=== PATIENT | male | born 1945 | race Caucasian/White ===

== ENCOUNTER 2017-11-20 05:39 | Inpatient (IN) | payer BC, OTHER ==
[2017-11-12 15:14] VITALS: Ht 172.7 cm; Wt 106.2 kg
--- NOTE | 2017-11-12 16:09 | PAT Medication Instructions ---
Service Date Nov 12, 2017. Current Home Medication List Aspirin (Aspirin Ec), 81 MG PO QAM Atorvastatin (Lipitor), 40 MG PO QPM Clonazepam (Klonopin), 0.25 MG PO QAM Coenzyme Q10 (Ubidecarenone) (Coq10), 100 MG PO QPM Lisinopril/Hctz (Zestoretic 20MG/12.5MG), 1.5 TAB PO QAM Metformin Hcl (Glucophage), 1,000 MG PO BID Venlafaxine Hcl (Effexor Extended Rel), 150 MG PO HS Medication Instructions For Your Scheduled Surgery - Hold the following medications starting today (11/12): Coenzyme Q10 (Ubidecarenone) (Coq10), 100 MG PO QPM - Hold the following medications the morning of surgery: Lisinopril/Hctz (Zestoretic 20MG/12.5MG), 1.5 TAB PO QAM Metformin Hcl (Glucophage), 1,000 MG PO BID - Take the following medications the morning of surgery with a sip of water: Aspirin (Aspirin Ec), 81 MG PO QAM Clonazepam (Klonopin), 0.25 MG PO QAM - Take the following medications as scheduled the night before surgery: Atorvastatin (Lipitor), 40 MG PO QPM Metformin Hcl (Glucophage), 1,000 MG PO BID Venlafaxine Hcl (Effexor Extended Rel), 150 MG PO HS If you have any questions please call us at [phone] or [phone] or [phone]
[2017-11-12 16:12] LABS: BASO % 0.4 %; BASO ABS # 0.03 K/uL (0-0.2); EOS % 2.3 %; EOS ABS # 0.19 K/uL (0-0.5); HEMOGLOBIN 12.9 g/dL (14.0-18.0); IG# 0.02 K/uL (0.00-0.02); LYMPH % 26.4 %; LYMPH ABS # 2.19 K/uL (1.2-3.4); MEAN CELL VOLUME 84.3 fL (80-100); MEAN CORPUSCULAR HEMOGLOBIN 28.6 pg (25-34); MEAN CORPUSCULAR HGB CONC 33.9 g/dl (32-36); MEAN PLATELET VOLUME 10.1 fL (7.4-10.4); MONO % 6.1 %; MONO ABS # 0.51 K/uL (0.11-0.59); NEUT % 64.6 %; NEUT ABS # 5.36 K/uL (1.4-6.5); PLATELET COUNT 266 K/uL (130-400); RED CELL DISTRIBUTION WIDTH CV 13.3 % (11.5-14.5)
[2017-11-12 16:33] LABS: CALCIUM 9.6 mg/dl (8.5-10.1); CREATININE 1.08 mg/dl (0.60-1.40)
--- NOTE | 2017-11-12 16:38 | DIAGNOSTIC IMAGING REPORT ---
CHEST 2 VIEWS ROUTINE CLINICAL HISTORY: PAT preoperative evaluation COMPARISON STUDY: 03/14/2011 FINDINGS: The bones soft tissues and hemidiaphragms are normal. The cardiomediastinal silhouette is normal. The lungs are clear. The pulmonary vasculature is normal. IMPRESSION: Negative chest. The above report was generated using voice recognition software. It may contain grammatical, syntax or spelling errors. Electronically signed by: Thang Barriga M.D. 11/12/2017 4:36 PM Dictated Date/Time: 11/12/2017 4:36 PM
[2017-11-20] VITALS (8 sets, daily range): BP systolic 109–185; BP diastolic 41–78; PULSE 94–109; TEMP 36.5–36.8; O2SAT 93–96
[~2017-11-20] VITALS: Ht 172.7 cm; Wt 106.2 kg
[~2017-11-20 05:39] MED LIST: ASPI81TA28 PO; ATOR-24 PO; CLON0.5T3 PO; COEN100C7 PO; GLC/500 PO; LISI-787 PO; VENL150C56 PO
[2017-11-20] MEDS ORDERED: CeleBREX 200 MG CAP PO SCH (06:00)
[2017-11-20] MEDS ORDERED: ACETAMINOPHEN 500 MG TAB PO SCH (06:00)
[2017-11-20] MEDS ORDERED: GABAPENTIN 300 MG CAP PO SCH (06:00)
[2017-11-20] MEDS ORDERED: LACTATED RINGER'S 1000ML 1,000 ML IV SCH (06:00)
[2017-11-20] MEDS ORDERED: CLINDAMYCIN 600 MG/54 ML D5W 54 ML IV SCH (06:00)
[2017-11-20] MEDS ORDERED: MIDAZOLAM HCL 1 MG/ML 2ML VIAL ONE (06:35)
[2017-11-20] MEDS ORDERED: FENTANYL CITRATE INJ 50 MCG/1 ML 2 ML VIAL ONE ×4 (06:35→10:02)
[2017-11-20] MEDS ORDERED: BACITRACIN 50000 UNIT VIAL ONE (06:58)
[2017-11-20] MEDS ORDERED: BUPIVACAINE/EPINEPHRINE 0.5% MPF 1:200,000 30 ML VIAL ONE (06:58)
--- NOTE | 2017-11-20 07:31 | History & Physical Bridge Note ---
H&P Re-Evaluation Bridge Note: I have examined the patient, reviewed the History & Physical and in the interval since the performance of the History & Physical I have noted the following changes of clinical significance: No changes noted
--- NOTE | 2017-11-20 07:32 | History and Physical ---
History & Physical Date November 20, 2017. Chief Complaint Back and leg pain History of Present Illness The patient is a 72 year old male with complaints of back and leg pain Past Medical/Surgical History Medical Problems: (1) Mental retardation Additional History Hepatic Disease: No Endocrine Disorder: No Kidney Disease: No Hypertension: Yes Heart Disease: No Bleeding Tendencies: No Infectious Diseases: No Other: Diabetes Allergies Coded Allergies: Penicillins (Verified Allergy, Intermediate, MOUTH SORES AND MONTH ULCERS , 11/20/17) Oxycodone (Verified Adverse Reaction, Mild, NAUSEA, 11/20/17) Home Medications Scheduled Atorvastatin (Lipitor), 40 MG PO QPM Clonazepam (Klonopin), 0.25 MG PO QAM Coenzyme Q10 (Ubidecarenone) (Coq10), 100 MG PO QPM Lisinopril/Hctz (Zestoretic 20MG/12.5MG), 1.5 TAB PO QAM Metformin Hcl (Glucophage), 1,000 MG PO BID Venlafaxine Hcl (Effexor Extended Rel), 150 MG PO HS Physical Examination Skin: warm/dry, no rash Eyes: normal inspection, EOMI, sclerae normal ENT: normal ENT inspection, pharynx normal Head: normocephalic, atraumatic Neck: supple, no adenopathy, trachea midline Respiratory/Chest: lungs clear, normal breath sounds, no respiratory distress Cardiovascular: regular rate, rhythm, no edema, no murmur Abdomen / GI: normal bowel sounds, non tender Back: normal inspection Extremities: normal inspection, normal range of motion Neurologic/Psych: no motor/sensory deficits, alert, normal reflexes, oriented x 3 Diagnosis Lumbar spinal stenosis with neurogenic claudication Plan of Treatment Hardware removal L4-5 L2-3 L3-4 decompression L2-S1 fusion
[2017-11-20] MEDS ORDERED: HYDROmorphone INJ 2 MG/ML SYR/VIAL ONE ×3 (08:04→10:37)
[2017-11-20] MEDS ORDERED: FLOSEAL HEMOSTATIC MATRIX 10ML TOP ONE (10:17)
[2017-11-20] MEDS ORDERED: PROPOFOL IV EMULSION 10 MG/ML 20 ML VIAL ONE (10:23)
[2017-11-20] MEDS ORDERED: EpHEDrine SULFATE INJ 50 MG/ML AMP ONE (10:23)
[2017-11-20] MEDS ORDERED: DEXAMETHASONE SOD INJ 4 MG/ML VIAL ONE (10:23)
[2017-11-20] MEDS ORDERED: LIDOCAINE HCL 2% 2 ML VIAL (20MG/ML) ONE (10:23)
[2017-11-20] MEDS ORDERED: PHENYLEPHRINE HCL INJ 10 MG/ML VIAL ONE (10:23)
[2017-11-20] MEDS ORDERED: PHENYLEPHRINE 100MCG/ML 5ML SYR ONE (10:23)
[2017-11-20] MEDS ORDERED: ROCURONIUM BROMIDE 10 MG/ML 5 ML VIAL ONE (10:23)
[2017-11-20] MEDS ORDERED: EpHEDrine SULFATE 50MG/5ML SYR ONE (10:23)
[2017-11-20 10:28] LABS: HEMATOCRIT 30.3 % (42-52); HEMOGLOBIN 10.3 g/dL (14.0-18.0)
[2017-11-20] MEDS ORDERED: SODIUM CHLORIDE 0.9% 1000ML 1,000 ML IV SCH (10:28)
--- NOTE | 2017-11-20 10:28 | [facility] Operative Report ---
Operative Report Operative Date November 20, 2017. Pre-Operative Diagnosis Lumbar spinal stenosis with neurogenic claudication Post-Operative Diagnosis Lumbar spinal stenosis with neurogenic claudication Procedure(s) Performed 1. Removal of posterior instrumentation L4-5. #2 exploration of fusion L4-5. #3 lumbar decompression medial facetectomies foraminotomies L2-3 L3-4. #4 posterior spinal fusion L2-3 L3-4 L5-S1. #5 placement of posterior segmental instrumentation L2-S1. #6 placement of locally harvested morselized autograft in the posterior lateral gutters. #7 placement of infuse collagen sponge combined with master graft in the posterior lateral gutters L2-S1. Surgeon Dr. Donald Isaac Voice Coach Surgeon(s) Alexandra Blankenship PA-C Estimated Blood Loss 775ml Findings Severe spinal stenosis Specimens A: Explanted hardware lumbar spine L4-L5 Anesthesia Type General Description of Procedure Patient was met with preoperatively case discussed all questions addressed. After informed consent obtained patient was taken to the operative suite underwent intubation and placed in a prone position on the Edy table on top of the Billy frame. All bony prominences were well-padded eyes inspected to ensure no external pressure placed upon the. This point the lumbar spine was prepped and draped in normal sterile fashion. Sharp dissection with the assistance of Bovie cautery was performed down to and exposing the lamina and transverse processes of L2-L3 and instrumentation at L4-5 and the sacral ala bilaterally. Then proceeded remove the hardware at L4-5 bilaterally explain the fusion mass noting it to be intact. I then performed a complete laminectomy of L3 and L2 addressing severe lateral recess and foraminal disease. After this was addressed pedicle screws were placed in L2-L3-L4 L5-S1 levels bilaterally with the assistance of fluoroscopy. Probe size sofie was locked in position. The transverse processes of L2 L3-L4-L5 and the sacral ala were then burred to subcortical bleeding bone. Infuse collagen sponge mesh graft and local autograft placed in the posterior lateral gutters. A 15 round MERI drain inserted. Incision was then closed with 1 Vicryl fascia 2-0 Vicryl subtends a 4 Monocryl for fashion closure Steri-Strips sterile dressings placed. Patient will continue to PACU stable condition. Please note Alexandra Vitale was present throughout the entire procedure involved in patient positioning complex portions of the surgery and fashion closure. I attest to the content of the Intraoperative Record and any orders documented therein. Any exceptions are noted below.
[2017-11-20] MEDS ORDERED: DO NOT ADMINISTER PNEUMOCOCCAL VACCINE PRN (10:30)
[2017-11-20] MEDS ORDERED: DC PCA PRN (10:30)
[2017-11-20] MEDS ORDERED: NALOXONE HCL 0.4 MG/1 ML VIAL/CARP IV PRN ×3 (10:30→11:30)
[2017-11-20] MEDS ORDERED: hydrOXYzine HCL 25 MG TAB PO PRN (10:30)
[2017-11-20] MEDS ORDERED: PROMETHAZINE HCL INJ 12.5 MG in SODIUM CHLORIDE 0.9% 50ML 50 ML IV PRN ×2 (10:30→11:30)
[2017-11-20] MEDS ORDERED: BISACODYL 10 MG SUPP PR PRN (10:30)
[2017-11-20] MEDS ORDERED: FAMOTIDINE 20 MG TAB PO PRN (10:30)
[2017-11-20] MEDS ORDERED: ACETAMINOPHEN IV 100 ML IV PRN (10:30)
[2017-11-20] MEDS ORDERED: LORAZEPAM 0.5 MG TAB PO PRN (10:30)
[2017-11-20] MEDS ORDERED: ALUMINUM/MAGNESIUM SUSP 30 ML UDC PO PRN (10:30)
[2017-11-20] MEDS ORDERED: LORAZEPAM INJ 0.5 MG in SYRINGE 0 ML IV PRN (10:30)
[2017-11-20] MEDS ORDERED: SOD PHOSPHATE/SOD BIPHOSPHATE ENEMA 132 ML BTL PR PRN (10:30)
[2017-11-20] MEDS ORDERED: METOCLOPRAMIDE HCL INJ 5 MG/ML 2 ML VIAL IV PRN (10:30)
[2017-11-20] MEDS ORDERED: ACETAMINOPHEN 500 MG TAB PO PRN (10:30)
[2017-11-20] MEDS ORDERED: DO NOT ADMINISTER FLU VACCINE PRN (10:30)
[2017-11-20] MEDS ORDERED: ONDANSETRON INJ 2 MG/ML 2 ML VIAL IV PRN ×2 (10:30→11:30)
[2017-11-20] MEDS ORDERED: MAGNESIUM HYDROXIDE SUSP 30 ML UDC PO PRN (10:30)
--- NOTE | 2017-11-20 10:31 | DIAGNOSTIC IMAGING REPORT ---
INTRAOPERATIVE RADIOGRAPHS CLINICAL HISTORY: L2-S1 spinal fusion. Fluoroscopy time: 22 seconds. FINDINGS: 2 spot fluoroscopic views of the lumbar spine are presented. There has been discectomy at L4-L5. There are changes from laminectomy and posterior fusion L2-S1. Interpedicular screws are present at all levels. The orthopedic hardware appears intact. IMPRESSION: Intraoperative images from L2 -S1 spinal fusion as above. Electronically signed by: Hayden Bess M.D. 11/20/2017 10:30 AM Dictated Date/Time: 11/20/2017 10:29 AM
[2017-11-20] MEDS ORDERED: ONDANSETRON INJ 2 MG/ML 2 ML VIAL ONE (10:38)
[2017-11-20] MEDS ORDERED: NEOSTIGMINE METHYLSULFATE 1 MG/ML 10ML VIAL ONE (10:38)
[2017-11-20] MEDS ORDERED: GLYCOPYRROLATE INJ 0.2 MG/ML VIAL ONE (10:38)
[2017-11-20] MEDS ORDERED: KETOROLAC TROMETHAMINE 30 MG/ML VIAL ONE (10:38)
[2017-11-20] MEDS ORDERED: HYDROmorphone HCL 0.5MG/ML 50 ML CASSETTE ONE (10:55)
[2017-11-20] MEDS ORDERED: ATROPINE SULFATE 0.1 MG/ML 5ML SYR IV PRN (11:30)
[2017-11-20] MEDS ORDERED: HYDROmorphone INJ 1 MG/ML SYR IV PRN (11:30)
[2017-11-20] MEDS ORDERED: EpHEDrine SULFATE INJ 50 MG/ML AMP IV PRN (11:30)
[2017-11-20] MEDS ORDERED: LABETALOL HCL IV 5 MG/ML 20ML IV PRN (11:30)
[2017-11-20] MEDS ORDERED: FLUMAZENIL 0.1 MG/1 ML 10 ML VIAL IV PRN (11:30)
--- NOTE | 2017-11-20 11:47 | Anesthesiology Progress Note ---
Anesthesia Post Op Note Date & Time November 20, 2017 at 11:46 Vital Signs Pain Intensity: 2 Vital Signs Past 12 Hours Date Time Temp Pulse Resp B/P (MAP) Pulse Ox O2 Delivery O2 Flow Rate FiO2 11/20/17 11:38 36.5 102 11/20/17 11:36 138/67 11/20/17 11:35 105 17 11/20/17 11:35 106 17 96 11/20/17 11:31 164/60 11/20/17 11:30 108 23 97 11/20/17 11:30 107 23 11/20/17 11:26 144/59 11/20/17 11:25 104 16 96 11/20/17 11:25 105 16 11/20/17 11:21 144/90 11/20/17 11:20 108 20 98 11/20/17 11:20 108 11/20/17 11:16 146/68 11/20/17 11:15 13 11/20/17 11:15 102 13 98 11/20/17 11:11 142/71 11/20/17 11:10 103 18 11/20/17 11:10 103 18 95 11/20/17 11:06 145/71 11/20/17 11:05 105 10 99 11/20/17 11:05 105 10 11/20/17 11:01 150/67 11/20/17 11:00 105 16 98 11/20/17 11:00 105 16 11/20/17 10:58 152/75 11/20/17 10:50 36.8 98 16 140/57 96 Oxymask 7 11/20/17 06:02 36.5 94 20 185/78 96 Room Air Notes Mental Status: alert / awake / arousable, participated in evaluation Pt Amnestic to Procedure: Yes Nausea / Vomiting: adequately controlled Pain: adequately controlled Airway Patency, RR, SpO2: stable & adequate BP & HR: stable & adequate Hydration State: stable & adequate Anesthetic Complications: no major complications apparent
[2017-11-20] MEDS ORDERED: GLUCOSE 40% GEL 15 GM TUBE PO PRN ×2 (12:30→13:00)
[2017-11-20] MEDS ORDERED: GLUCOSE 10 TABS/TUBE PO PRN ×2 (12:30→13:00)
[2017-11-20] MEDS ORDERED: DEXTROSE 50% 50 ML SYR IV PRN ×2 (12:30→13:00)
[2017-11-20] MEDS ORDERED: CARBOHYDRATES FOR HYPOGLYCEMIA PO PRN ×2 (12:30→13:00)
[2017-11-20] MEDS ORDERED: GLUCAGON FOR INJ 1 MG VIAL SQ PRN (12:30)
--- NOTE | 2017-11-20 12:31 | Medical Consult ---
Consultation Date of Consultation: November 20, 2017. Attending Physician: Donald Isaac D.O. Reason for Consultation: post op medical management History of Present Illness This is a 72yo M with a PMH of lumbar stenosis, DM II, HTN, HLD, SEAN and depression who is POD #0 s/p L4-L5 hardware removal, decompression and fusion of L2-S1 by Dr. Isaac. Patient is doing well post-operatively. States that back pain is a 3/10. Denies any fever, chills, lightheadedness, headache, visual changes, sore throat, CP, SOB, abdominal pain, nausea, vomiting, dysuria or LE swelling. PCP is Dr. Sy with [facility]. Has DM II. Most recent hgb a1c was 7.3 in Jul 2017. Has undergone two other spinal surgeries by Dr. Isaac. Did have a R basilic vein DVT following 2010 cervical disc corpectomy. Denies any other history of DVT/PE. Does have history of a GI bleed 2/2 peptic ulcer from NSAID use. No longer uses NSAIDs at home. Past Medical/Surgical History Medical Problems: (1) Depression Status: Chronic (2) Diabetes mellitus, type II Status: Chronic (3) SEAN (generalized anxiety disorder) Status: Chronic (4) H/O deep venous thrombosis Permanent Comment: post operative in 2010 Status: Chronic (5) H/O peptic ulcer Status: Chronic (6) Heart murmur, systolic Status: Chronic (7) HLD (hyperlipidemia) Status: Chronic (8) HTN (hypertension) Status: Chronic (9) Lumbar stenosis with neurogenic claudication Status: Chronic Surgical Problems: (1) H/O cervical spine surgery Permanent Comment: 2010: Cervical corpectomy C6 by Dr. Isaac Status: Chronic (2) H/O Spinal surgery Permanent Comment: 2007: Lumbar decompression and fusion L4-L5 by Dr. Isaac. 2018: hardware removal L4-L5, decompression and fusion L2-S1 by Dr. Isaac Status: Chronic Family History Hypertension Social History Smoking Status: Former Smoker Alcohol Use: occasionally (1x/month ) Drug Use: none Marital Status: Housing Status: lives with significant other Allergies Coded Allergies: Penicillins (Verified Allergy, Intermediate, MOUTH SORES AND MONTH ULCERS , 11/20/17) Chlorhexidine (Unverified Allergy, Mild, RASH, 11/20/17) From chlorhexidine wipes prior to surgery Oxycodone (Verified Adverse Reaction, Mild, NAUSEA, 11/20/17) Home Medications Reported Home Medications Medications Dose Route/Sig Max Daily Dose Days Date Category Effexor Extended Rel (Venlafaxine Hcl) 150 Mg Cap 150 Mg PO HS 11/12/17 Reported Glucophage (Metformin Hcl) 500 Mg Tab 1,000 Mg PO BID 11/12/17 Reported Zestoretic 20MG/12.5MG (HCTZ/Lisinopril) Tab 1.5 Tab PO QAM 11/12/17 Reported Coq10 (Coenzyme Q10 (Ubidecarenone)) 100 Mg Cap 100 Mg PO QPM 11/12/17 Reported Lipitor (Atorvastatin Calcium) 40 Mg Tab 40 Mg PO QPM 11/12/17 Reported Klonopin (Clonazepam) 0.5 Mg Tab 0.25 Mg PO QAM 07/01/08 Reported Current Inpatient Medications Current Inpatient Medications Medications (Trade) Dose Ordered Sig/Blu Route Start Time Stop Time Status Last Admin Dose Admin Lactated Ringer's 1,000 ml @ 15 mls/hr Q24H IV 11/20/17 06:00 11/21/17 05:59 11/20/17 06:19 15 MLS/HR Clindamycin Phosphate 54 ml @ 100 mls/hr PREOP IV 11/20/17 06:00 11/20/17 18:00 11/20/17 07:39 100 MLS/HR Acetaminophen (Tylenol Tab) 1,000 mg PREOP PO 11/20/17 06:00 11/20/17 18:00 11/20/17 06:20 1,000 MG Celecoxib (CeleBREX CAP) 200 mg PREOP PO 11/20/17 06:00 11/20/17 18:00 11/20/17 06:19 200 MG Gabapentin (Neurontin Cap) 300 mg PREOP PO 11/20/17 06:00 11/20/17 18:00 11/20/17 06:19 300 MG Clindamycin Phosphate 600 mg/ Dextrose 54 ml @ 100 mls/hr Q8H IV 11/20/17 10:30 11/20/17 19:03 UNV Promethazine HCl 12.5 mg/Sodium Chloride 50.5 ml @ 202 mls/hr Q6H PRN IV 11/20/17 10:30 12/20/17 10:29 UNV Ondansetron HCl (Zofran Inj) 4 mg Q6H PRN IV 11/20/17 10:30 12/20/17 10:29 UNV Metoclopramide HCl (Reglan Inj) 10 mg Q6H PRN IV 11/20/17 10:30 12/20/17 10:29 UNV Lorazepam (Ativan Tab) 0.5 mg Q8H PRN PO 11/20/17 10:30 12/20/17 10:29 UNV Lorazepam 0.5 mg/ Syringe 0.25 ml @ 1 mls/min Q8H PRN IV 11/20/17 10:30 12/20/17 10:29 UNV Pneumococcal Polysaccharide Vaccine 1 ea PRN PRN N/A 11/20/17 10:30 12/20/17 10:29 UNV Influenza Virus Vacc Triv Types A&B 1 ea PRN PRN N/A 11/20/17 10:30 12/20/17 10:29 UNV Polyethylene (Miralax Powder Packet) 17 gm Q6 PO 11/22/17 06:00 12/22/17 05:59 UNV Bisacodyl (Dulcolax Supp) 10 mg DAILY PRN IL 11/20/17 10:30 12/20/17 10:29 UNV Magnesium Hydroxide (Milk Of Magnesia Susp) 30 ml DAILY PRN PO 11/20/17 10:30 12/20/17 10:29 UNV Hydromorphone HCl (Dilaudid Inj) 0.5-1mg prn moder... Q3H PRN IV 11/21/17 06:00 12/05/17 05:59 UNV Acetaminophen/ Hydrocodone Bitart (Vermillion 5/325 Tab) 1-2 tabs prn moder... Q4H PRN PO 11/21/17 06:00 12/05/17 05:59 UNV Sodium Chloride 1,000 ml @ 150 mls/hr Q6H40M IV 11/20/17 10:28 12/20/17 10:27 UNV Acetaminophen (Tylenol Tab) 1,000 mg Q8H PRN PO 11/20/17 10:30 12/20/17 10:29 UNV Acetaminophen 100 ml @ 400 mls/hr Q8H PRN IV 11/20/17 10:30 12/20/17 10:29 UNV Naloxone HCl (Narcan Inj) 0.1 mg Q5M PRN IV 11/20/17 10:30 12/20/17 10:29 UNV Senna/Docusate Sodium (Senokot S Tab) 2 tab HS PO 11/20/17 21:00 12/20/17 20:59 UNV Sodium Biphosphate/ Sodium Phosphate (Fleet Enema) 132 ml ONE PRN IL 11/20/17 10:30 12/20/17 10:29 UNV Hydroxyzine HCl (Vistaril Tab) 25 mg Q8H PRN PO 11/20/17 10:30 12/20/17 10:29 UNV Al Hydroxide/Mg Hydroxide (Maalox Susp) 30 ml Q6H PRN PO 11/20/17 10:30 12/20/17 10:29 UNV Famotidine (Pepcid Tab) 20 mg Q12 PRN PO 11/20/17 10:30 12/20/17 10:29 UNV Diphenhydramine HCl (Benadryl Cap) 25 mg Q6H PRN PO 11/20/17 10:30 12/20/17 10:29 UNV Miscellaneous Information (Discontinue TELEPHONE ORDER CLERK) 1 ea DIRECTED PRN N/A 11/20/17 10:30 11/21/17 10:29 UNV Naloxone HCl (Narcan Inj) 0.1 mg Q5M PRN IV 11/20/17 10:30 12/20/17 10:29 UNV Hydromorphone HCl (Dilaudid Injection Wax Molder) 25 mg PRN PRN IV 11/20/17 10:30 12/04/17 10:29 UNV Sodium Chloride 1,000 ml @ 15 mls/hr Q24H IV 11/20/17 10:28 12/20/17 10:27 UNV Atorvastatin Calcium (Lipitor Tab) 40 mg QPM PO 11/20/17 21:00 12/20/17 20:59 UNV Clonazepam (Klonopin Tab) 0.25 mg QAM PO 11/21/17 09:00 12/21/17 08:59 UNV HCTZ/Lisinopril (Prinzide 20-12.5MG Tab) 1.5 tab QAM PO 11/21/17 09:00 12/21/17 08:59 UNV Venlafaxine HCl (effeXOR EXTENDED REL CAP) 150 mg HS PO 11/20/17 21:00 12/20/17 20:59 UNV Hydromorphone HCl (Dilaudid Inj) 0.25 mg Q5M PRN IV 11/20/17 11:30 11/21/17 11:29 UNV Naloxone HCl (Narcan Inj) 0.2 mg Q2M PRN IV 11/20/17 11:30 11/21/17 11:29 UNV Flumazenil (Romazicon Inj) 0.2 mg Q2M PRN IV 11/20/17 11:30 11/21/17 11:29 UNV Ondansetron HCl (Zofran Inj) 4 mg ONE PRN IV 11/20/17 11:30 12/20/17 11:29 UNV Promethazine HCl 12.5 mg/Sodium Chloride 50.5 ml @ 202 mls/hr ONE PRN IV 11/20/17 11:30 UNV Labetalol HCl (Normodyne IV) 5 mg Q5M PRN IV 11/20/17 11:30 11/21/17 11:29 UNV Ephedrine Sulfate (EpHEDrine SULFATE INJ) 5 mg Q5M PRN IV 11/20/17 11:30 11/21/17 11:29 UNV Atropine Sulfate (Atropine Sulfate 0.1mg/ml Inj) 0.5 mg Q1M PRN IV 11/20/17 11:30 11/21/17 11:29 UNV Insulin Aspart (novoLOG ASPART) SLIDING SCALE If C... ACHS SC 11/20/17 16:00 12/20/17 15:59 UNV Glucose (Glucose 40% Gel) 15-30 GRAMS 15 GRAMS... UD PRN PO 11/20/17 12:30 12/20/17 12:29 UNV Glucose (Glucose Chew Tab) 4-8 Tablets 4 Tabl... UD PRN PO 11/20/17 12:30 12/20/17 12:29 UNV Dextrose (Dextrose 50% 50ML Syringe) 25-50ML 25ML FOR ... UD PRN IV 11/20/17 12:30 12/20/17 12:29 UNV Glucagon (Glucagon Inj) 1 mg UD PRN SQ 11/20/17 12:30 12/20/17 12:29 UNV Carbohydrates (Carbohydrates For Hypoglycemia) 15-30 GRAMS 15 grams if BSG 54-69... UD PRN PO 11/20/17 12:30 12/20/17 12:29 UNV Review of Systems Ten systems reviewed and negative except as noted in the HPI. Physical Exam Date Time Temp Pulse Resp B/P (MAP) Pulse Ox O2 Delivery O2 Flow Rate FiO2 11/20/17 12:18 93 Nasal Cannula 2.0 11/20/17 12:18 106 18 126/51 (76) 95 Nasal Cannula 2.0 11/20/17 11:50 36.5 105 16 121/41 (67) 93 Nasal Cannula 2.0 11/20/17 11:50 93 Nasal Cannula 2.0 11/20/17 11:50 93 Nasal Cannula 2.0 11/20/17 11:38 36.5 102 11/20/17 11:36 138/67 11/20/17 11:35 105 17 11/20/17 11:35 106 17 96 11/20/17 11:31 164/60 11/20/17 11:30 108 23 97 11/20/17 11:30 107 23 11/20/17 11:26 144/59 11/20/17 11:25 104 16 96 11/20/17 11:25 105 16 11/20/17 11:21 144/90 11/20/17 11:20 108 20 98 11/20/17 11:20 108 11/20/17 11:16 146/68 11/20/17 11:15 13 11/20/17 11:15 102 13 98 11/20/17 11:11 142/71 11/20/17 11:10 103 18 11/20/17 11:10 103 18 95 11/20/17 11:06 145/71 11/20/17 11:05 105 10 99 11/20/17 11:05 105 10 11/20/17 11:01 150/67 11/20/17 11:00 105 16 98 11/20/17 11:00 105 16 11/20/17 10:58 152/75 11/20/17 10:50 36.8 98 16 140/57 96 Oxymask 7 11/20/17 06:02 36.5 94 20 185/78 96 Room Air General Appearance: WD/WN, no apparent distress, + pertinent finding (resting comfortably ) Head: normocephalic, atraumatic Eyes: normal inspection, PERRL, sclerae normal ENT: normal ENT inspection, hearing grossly normal, pharynx normal (moist mucous membranes ) Neck: supple, no adenopathy, no carotid bruits Respiratory/Chest: chest non-tender, lungs clear, normal breath sounds, no respiratory distress, no accessory muscle use Cardiovascular: regular rate, rhythm, normal peripheral pulses, + systolic murmur Abdomen/GI: non tender, soft, no organomegaly Genitourinary - Male: + pertinent finding ([place]) Back: normal inspection, + pertinent finding (Lumbosacral surgical dressing in place. Clean, dry, intact. Drain visualized. ) Extremities/Musculoskelatal: normal inspection, no calf tenderness, no pedal edema, + swelling (SCDs) Neurologic/Psych: no motor/sensory deficits, alert, normal mood/affect, oriented x 3 Skin: normal color, warm/dry Laboratory Results Last 24 Hours Test 11/20/17 05:54 11/20/17 10:17 11/20/17 10:52 11/20/17 11:58 Bedside Glucose 168 mg/dl 260 mg/dl 273 mg/dl Hemoglobin 10.3 g/dL Hematocrit 30.3 % Assessment & Plan This is a 72yo M with a PMH of lumbar stenosis, DM II, HTN, HLD, SEAN and depression who is POD #0 s/p L4-L5 hardware removal, decompression and fusion of L2-S1 by Dr. Isaac. Lumbar stenosis s/p decompression fusion: -L4-L5 hardware removal, decompression and fusion of L2-S1 by Dr. Isaac -Doing well post-operatively -Per ortho for pain control, wound care, anticoagulation and activities -Monitor H&H, continue incentive spirometry, PT/OT when appropriate DM II: -A1c of 7.3 in Jul 2017 -Repeat a1c -Hold home metformin -Received 12mg Decadron intraoperatively -BSG is 273 post-operatively -Giving lantus dose x 1 now -Basal/bolus insulin per protocol while in-patient -BSG check AC HS HTN: -Lisinopril/hctz held pre-operatively -Normotensive -Resume scheduled dose tonight -Add PRN agent if indicated Depression: -Cont SSRI Anxiety: -Cont Klonopin HLD: -Cont statin -Hold Co Q 10 PCP: Kerrie Dispo: Per ortho Patient seen in collaboration with Dr. Werner. Please see addendum. Thank you for this consultation. We will follow the patient with you during their hospital stay. You can reach a [facility] via pager @ . Attending Addendum Pt was seen and examined. Agreed with Laura PEREA exam, assessment and plan. 72- year-old male PMH hx DM, HTN, DLP, status post L2-S1 decompression and fusion done today by Dr. Isaac. No post op complications. Denies any chest pain, palpitation, dizziness and sob. Continue monitor H/H and incentive spirometry. Pain management as per ortho.PT/OT and fall precaution. We will continue monitor his blood sugar. MD Debbi
[2017-11-20] MEDS ORDERED: INSULIN GLARGINE SOLOSTAR 100 UNITS/ML 3 ML PEN SC ONE (12:45)
[2017-11-20] MEDS ORDERED: GLUCAGON FOR INJ 1 MG VIAL IM PRN (13:00)
[2017-11-20] MEDS: INSULIN ASPART 100 UNITS/ML 3 ML PEN SC SCH ×3 (13:56→21:05)
[2017-11-20] MEDS ORDERED: HYDR-5688 PO (14:47)
--- NOTE | 2017-11-20 14:48 | Discharge Instructions ---
Discharge Instructions Date of Service November 20, 2017. Admission Reason for Admission: Lumbar Spinal Stenosis Discharge Discharge Diagnosis / Problem: lumbar stenosis Discharge Goals Goal(s): Improve function Activity Recommendations Activity Limitations: per Instructions/Follow-up section . Instructions / Follow-Up Instructions / Follow-Up ACTIVITY RECOMMENDATIONS: SELF CARE INSTRUCTIONS AFTER THORACIC/LUMBAR FUSIONS 1. You may walk to your tolerance. It is good exercise for your legs and back. Expect some back and intermittent leg aches and pains. 2. You may perform "counter-top" level activities (make a sandwich, gerri with a project, etc.). 3. No bending or lifting of more than 10 pounds or back twisting of any nature (roll like a log when turning in bed). 4. You may ride in a car for 20-30 minutes at a time. No driving until after your first visit with your doctor. 5. Frequent changes of position and restricting sitting to 30 minutes at a time will help limit the amount of back spasms and stiffness you may experience. 6. You may discontinue the use of ambulatory aids (cane, crutches, etc.) once your strength and confidence allow. 7. You may windscreen fitter the shower and let water strike your incision when you arrive home at least once daily. Do not take a tub bath, sit in a hot tub or go into a swimming pool until after your first recheck in the office. SPECIAL CARE INSTRUCTIONS: VERY IMPORTANT TO READ AND REVIEW A. Your surgical incision has been closed with a cosmetic suture under the skin that will dissolve in about 6 weeks. In 14 days, you can use a pair of clean scissors and cut the suture that is left outside of the skin at the ends of your incision. 1. The small skin tapes can be removed 7 days after surgery if they have not fallen off by that point. 2. You may keep the wound open to air as much as possible to promote healing after post-op day number 5 unless told otherwise by your doctor. 3. If you think the wound looks like it is becoming infected (redness or worsening drainage) and/or you are experiencing fever, chill or worsening back pain and muscle spasms, contact the office so that we may evaluate you as soon as possible. B. Complications are uncommon, but please contact us if you have any signs or symptoms of: 1. wound infection (fever higher than 102.5 degrees F, redness, separation of wound, drainage, or increasing pain from the incision) 2. blood clots in legs (pain, swelling, redness and warmth in legs) 3. urinary tract infection (fever higher than 102.5 degrees F, burning upon urination or increased frequency of urination) 4. nerve problems (inability to walk on your toes or heels, numbness, loss of bowel or bladder control) 5. any other symptoms that concern you C. Please call the office at if you have any concerns or questions about your operation or recovery. D. No smoking! Smoking drastically decreases the chance of a solid fusion. E. Do not take any anti-inflammatory medications (Indocin, Advil, Motrin, Aspirin, Naprosyn, etc.) as these may inhibit the chance of a solid fusion. Tylenol is okay to take for pain. MANAGING PAIN AFTER SPINAL SURGERY 1. Narcotic medication is intended for short-term use and will be provided for surgical pain. Surgical pain usually lasts for a period of 4-6 weeks. Narcotic medication includes Percocet, Vicodin, Darvocet, Tylenol #3 or Lortab. 2. Longer-term pain is more appropriately treated with non-narcotic medication such as Tylenol ES. 3. Muscle spasm is not appropriately treated with narcotics. Muscle relaxers such as Soma, Flexeril or Skelaxin can be used along with Tylenol ES. 4. Remember that we all live with some "aches and pains". This is not unusual or uncommon after an injury or as we get older. a. Back pain is expected and may include muscle spasms for 4 to 6 weeks after surgery. The pain should gradually improve. If the pain worsens for no apparent reason, please contact the office. b. Intermittent leg pain may also be experienced and should not be concerned about unless it worsens for no apparent reason. If so, please contact the office. 5. We will provide appropriate medication within the normal guidelines of their prescribed use. We will also be very cautious and aware of potential abuse and extended duration of patients' medication needs. a. Pain medications are for your comfort and to assist with sleep and rest so that the tissue can heal. They are not provided in order to return to normal activity and should not be used through the day. To do so or worsening pain at night can result from ongoing tissue damage and development of tolerance to the prescribed medicine. 6. Please allow 2-3 days to process refills. Prescriptions will not be mailed but must be picked up at the office. FOLLOW UP VISIT: Keep your scheduled follow-up appointment. Any questions, please call the office at . Current Hospital Diet Patient's current hospital diet: Diabetes Type 2 Diet Discharge Diet Recommended Diet: Regular Diet Procedures Procedures Performed: 1. Removal of posterior instrumentation L4-5. #2 exploration of fusion L4-5. #3 lumbar decompression medial facetectomies foraminotomies L2-3 L3-4. #4 posterior spinal fusion L2-3 L3-4 L5-S1. #5 placement of posterior segmental instrumentation L2-S1. #6 placement of locally harvested morselized autograft in the posterior lateral gutters. #7 placement of infuse collagen sponge combined with master graft in the posterior lateral gutters L2-S1. Pending Studies Studies pending at discharge: no Medical Emergencies . Who to Call and When: Medical Emergencies: If at any time you feel your situation is an emergency, please call 911 immediately. . Non-Emergent Contact Non-Emergency issues call your: Primary Care Provider . "Provider Documentation" section prepared by Donald Isaac. .
[2017-11-20] MEDS: HYDROmorphone HCL 0.5MG/ML 50 ML CASSETTE IV PRN ×2 (15:10→19:14)
[2017-11-20] MEDS: SODIUM CHLORIDE 0.9% 1000ML 1,000 ML IV SCH ×2 (17:16→19:51)
[2017-11-20] MEDS: CLINDAMYCIN IV 600 MG in DEXTROSE 5% 50ML 50 ML IV SCH (17:16)
[2017-11-20] MEDS: DOCUSATE SODIUM/SENNA 50/8.6MG TAB PO SCH (19:53)
[2017-11-20] MEDS: VENLAFAXINE HCL XR 150 MG CAPXR PO SCH (19:53)
[2017-11-20] MEDS: ATORVASTATIN 40 MG TAB PO SCH (19:53)
[2017-11-20] MEDS: INSULIN GLARGINE SOLOSTAR 100 UNITS/ML 3 ML PEN SC SCH (21:05)
[2017-11-21] MEDS: SODIUM CHLORIDE 0.9% 1000ML 1,000 ML IV SCH (00:24)
[2017-11-21] MEDS: CLINDAMYCIN IV 600 MG in DEXTROSE 5% 50ML 50 ML IV SCH (00:33)
[2017-11-21] MEDS ORDERED: INSULIN ASPART 100 UNITS/ML 3 ML PEN SC ONE (01:00)
[2017-11-21 03:38] VITALS: BP 102/62; PULSE 90; TEMP 36.7; O2SAT 93
[2017-11-21] MEDS ORDERED: HYDROmorphone INJ 0.5 MG/0.5 ML SYR IV PRN (06:00)
[2017-11-21] MEDS ORDERED: NURSING VERBAL MED ORDER ONE (06:00)
[2017-11-21 06:21] LABS: HEMATOCRIT 24.4 % (42-52); HEMOGLOBIN 8.3 g/dL (14.0-18.0); IG# 0.05 K/uL (0.00-0.02); LYMPH % 7.1 %; LYMPH ABS # 0.84 K/uL (1.2-3.4); MEAN CELL VOLUME 83.8 fL (80-100); MEAN CORPUSCULAR HEMOGLOBIN 28.5 pg (25-34); MEAN PLATELET VOLUME 10.4 fL (7.4-10.4); MONO % 7.7 %; MONO ABS # 0.91 K/uL (0.11-0.59); NEUT % 84.8 %; NEUT ABS # 10.05 K/uL (1.4-6.5); PLATELET COUNT 194 K/uL (130-400); RED CELL DISTRIBUTION WIDTH CV 13.4 % (11.5-14.5); RED CELL DISTRIBUTION WIDTH SD 41.1 fL (36.4-46.3); WHITE BLOOD COUNT 11.85 K/uL (4.8-10.8)
[2017-11-21 06:44] LABS: CREATININE 1.06 mg/dl (0.60-1.40); POTASSIUM 4.1 mmol/L (3.5-5.1)
[2017-11-21 06:53] LABS: HEMOGLOBIN A1C 7.9 % (4.5-5.6)
[2017-11-21 07:08] VITALS: BP 132/68; PULSE 90; TEMP 36.7; O2SAT 95
[2017-11-21] MEDS: INSULIN ASPART 100 UNITS/ML 3 ML PEN SC SCH ×4 (08:35→21:48)
[2017-11-21] MEDS: INSULIN GLARGINE SOLOSTAR 100 UNITS/ML 3 ML PEN SC SCH ×2 (08:36→21:50)
[2017-11-21] MEDS: CLONAZEPAM 0.5 MG TAB PO SCH (08:50)
[2017-11-21] MEDS: LISINOPRIL/HCTZ 20/12.5MG TAB PO SCH (08:51)
[2017-11-21 09:52] VITALS: BP 136/66; PULSE 91; O2SAT 94
[2017-11-21] MEDS ORDERED: KETOROLAC TROMETHAMINE 15 MG/ML VIAL IV. PRN (11:00)
[2017-11-21 11:35] VITALS: BP 106/61; PULSE 91; TEMP 37.3; O2SAT 93
--- NOTE | 2017-11-21 12:18 | Progress Note ---
Progress Note Date of Service November 21, 2017. Progress Note Patient's back pain is controlled leg symptoms markedly improved. Vital signs stable. On exam he is ambulating the halls without difficulty excellent strength testing. Assessment status post lumbar decompression fusion per plan at this time will continue physical therapy anticipate discharge home Sunday.
[2017-11-21] MEDS: HYDROCODONE/ACETAMIN 5/325MG TAB PO PRN ×2 (14:28→21:57)
[2017-11-21 15:07] VITALS: BP 112/55; PULSE 88; TEMP 37.2; O2SAT 96
--- NOTE | 2017-11-21 18:21 | Progress Note ---
Medicine Progress Note Date & Time of Visit: November 21, 2017 at 17:00. Subjective 72-year-old man with history of lumbar stenosis presents for elective lumbar decompression and fusion. He is doing well today postoperative day 1. He is tolerating p.o. He is afebrile. He is ambulating with minimal assistance. MERI drain is in place. Patient reports being not lightheaded when he walks around. Denies chest pain or shortness of breath. Objective Last 8 Hrs Date Time Temp Pulse Resp B/P (MAP) Pulse Ox O2 Delivery O2 Flow Rate FiO2 11/21/17 15:07 37.2 88 18 112/55 (74) 96 Room Air 11/21/17 11:35 37.3 91 16 106/61 (76) 93 Room Air 11/21/17 09:52 91 94 Physical Exam: GEN: WNWD, in no acute distress, alert and appropriate HEENT: NC/AT, normal sclerae, MMM CARDIO: reg rate, S1/2 heard without m/g/r LUNGS: CTA bilaterally, no crackles, rales or wheezes, good diaphragmatic excursion ABD: soft, non-tender, non-distended, no rebound or guarding BACK: dry dressing is c/d/i over lower back with MERI drain in place draining blood-tinged serous drainage. EXTREMITY: RP and DP palpable 2+ bilat, no LE swelling or edema, extremities are warm and well-perfused NEURO: CN 2-12 grossly intact, sensation intact throughout including feet MUSC: 5/5 strength throughout, no focal deficits, ambulatory SKIN: warm and dry Laboratory Results: 11/21/17 05:14 Red Blood Count 2.91, Mean Corpuscular Volume 83.8, Mean Corpuscular Hemoglobin 28.5, Mean Corpuscular Hemoglobin Concent 34.0, Mean Platelet Volume 10.4, Neutrophils (%) (Auto) 84.8, Lymphocytes (%) (Auto) 7.1, Monocytes (%) (Auto) 7.7, Eosinophils (%) (Auto) 0.0, Basophils (%) (Auto) 0.0, Neutrophils # (Auto) 10.05, Lymphocytes # (Auto) 0.84, Monocytes # (Auto) 0.91, Eosinophils # (Auto) 0.00, Basophils # (Auto) 0.00 5/2/18 05:14 Test 11/12/17 15:50 11/21/17 05:14 11/21/17 17:00 Urine Color YELLOW Urine Appearance CLEAR (CLEAR) Urine pH 5.0 (4.5-7.5) Urine Specific [place] 1.023 (1.000-1.030) Urine Protein NEG (NEG) Urine Glucose (UA) 1+ (NEG) Urine Ketones NEG (NEG) Urine Occult Blood NEG (NEG) Urine Nitrite NEG (NEG) Urine Bilirubin NEG (NEG) Urine Urobilinogen NEG (NEG) Urine Leukocyte Esterase NEG (NEG) White Blood Count 11.85 K/uL (4.8-10.8) Red Blood Count 2.91 M/uL (4.7-6.1) Hemoglobin 8.3 g/dL (14.0-18.0) Hematocrit 24.4 % (42-52) Mean Corpuscular Volume 83.8 fL (80-100) Mean Corpuscular Hemoglobin 28.5 pg (25-34) Mean Corpuscular Hemoglobin Concent 34.0 g/dl (32-36) Platelet Count 194 K/uL (130-400) Mean Platelet Volume 10.4 fL (7.4-10.4) Neutrophils (%) (Auto) 84.8 % Lymphocytes (%) (Auto) 7.1 % Monocytes (%) (Auto) 7.7 % Eosinophils (%) (Auto) 0.0 % Basophils (%) (Auto) 0.0 % Neutrophils # (Auto) 10.05 K/uL (1.4-6.5) Lymphocytes # (Auto) 0.84 K/uL (1.2-3.4) Monocytes # (Auto) 0.91 K/uL (0.11-0.59) Eosinophils # (Auto) 0.00 K/uL (0-0.5) Basophils # (Auto) 0.00 K/uL (0-0.2) RDW Standard Deviation 41.1 fL (36.4-46.3) RDW Coefficient of Variation 13.4 % (11.5-14.5) Immature Granulocyte % (Auto) 0.4 % Immature Granulocyte # (Auto) 0.05 K/uL (0.00-0.02) Red Blood Cell Morphology Unremarkable Anion Gap 6.0 mmol/L (3-11) Est Creatinine Clear Calc Drug Dose 76.6 ml/min Estimated GFR () 82.0 Estimated GFR (Non- 70.8 BUN/Creatinine Ratio 20.3 (10-20) Estimated Average Glucose 180 mg/dl Hemoglobin A1c 7.9 % (4.5-5.6) Calcium Level 8.0 mg/dl (8.5-10.1) Hepatitis C Antibody Screen NEG (NEG) Bedside Glucose 128 mg/dl (70-99) Last 24 Hours Test 11/20/17 17:06 11/20/17 20:57 11/21/17 00:26 11/21/17 05:14 Bedside Glucose 251 mg/dl 245 mg/dl 156 mg/dl White Blood Count 11.85 K/uL Red Blood Count 2.91 M/uL Hemoglobin 8.3 g/dL Hematocrit 24.4 % Mean Corpuscular Volume 83.8 fL Mean Corpuscular Hemoglobin 28.5 pg Mean Corpuscular Hemoglobin Concent 34.0 g/dl Platelet Count 194 K/uL Mean Platelet Volume 10.4 fL Neutrophils (%) (Auto) 84.8 % Lymphocytes (%) (Auto) 7.1 % Monocytes (%) (Auto) 7.7 % Eosinophils (%) (Auto) 0.0 % Basophils (%) (Auto) 0.0 % Neutrophils # (Auto) 10.05 K/uL Lymphocytes # (Auto) 0.84 K/uL Monocytes # (Auto) 0.91 K/uL Eosinophils # (Auto) 0.00 K/uL Basophils # (Auto) 0.00 K/uL RDW Standard Deviation 41.1 fL RDW Coefficient of Variation 13.4 % Immature Granulocyte % (Auto) 0.4 % Immature Granulocyte # (Auto) 0.05 K/uL Red Blood Cell Morphology Unremarkable Sodium Level 138 mmol/L Potassium Level 4.1 mmol/L Chloride Level 104 mmol/L Carbon Dioxide Level 28 mmol/L Anion Gap 6.0 mmol/L Blood Urea Nitrogen 22 mg/dl Creatinine 1.06 mg/dl Est Creatinine Clear Calc Drug Dose 76.6 ml/min Estimated GFR () 82.0 Estimated GFR (Non- 70.8 BUN/Creatinine Ratio 20.3 Random Glucose 146 mg/dl Estimated Average Glucose 180 mg/dl Hemoglobin A1c 7.9 % Calcium Level 8.0 mg/dl Hepatitis C Antibody Screen NEG Test 11/21/17 07:58 11/21/17 12:00 Bedside Glucose 180 mg/dl 134 mg/dl Assessment & Plan 72-year-old man with history of lumbar stenosis presents for elective lumbar decompression and fusion. He is doing well today postoperative day 1. He is tolerating p.o. He is afebrile. He is ambulating with minimal assistance. MERI drain is in place. Patient reports being not lightheaded when he walks around. Denies chest pain or shortness of breath. 1. Postop state status post lumbar decompression and fusion-postop day 1, doing well. Continue management per Ortho. Continue PT/OT. Continue incentive spirometry. DVT prophylaxis when appropriate per Dr. Isaac 2. Diabetes type 2-controlled, continue insulin sliding scale and glargine while hospitalized. 3. Hypertension-controlled continue home medications. 4. Anemia secondary to postoperative blood loss-currently asymptomatic. Recheck H&H in a.m. DVT prophylaxis-SCDs Full code Disposition likely DC to home on Sunday per Dr. Marlin Thompson DO [facility] hospitalist Current Inpatient Medications: Current Inpatient Medications Medications (Trade) Dose Ordered Sig/Blu Route Start Time Stop Time Status Last Admin Dose Admin Promethazine HCl 12.5 mg/Sodium Chloride 50.5 ml @ 202 mls/hr Q6H PRN IV 11/20/17 10:30 12/20/17 10:29 Ondansetron HCl (Zofran Inj) 4 mg Q6H PRN IV 11/20/17 10:30 12/20/17 10:29 Metoclopramide HCl (Reglan Inj) 10 mg Q6H PRN IV 11/20/17 10:30 12/20/17 10:29 Lorazepam (Ativan Tab) 0.5 mg Q8H PRN PO 11/20/17 10:30 12/20/17 10:29 Lorazepam 0.5 mg/ Syringe 0.25 ml @ 1 mls/min Q8H PRN IV 11/20/17 10:30 12/20/17 10:29 Pneumococcal Polysaccharide Vaccine 1 ea PRN PRN N/A 11/20/17 10:30 12/20/17 10:29 Influenza Virus Vacc Triv Types A&B 1 ea PRN PRN N/A 11/20/17 10:30 12/20/17 10:29 Polyethylene (Miralax Powder Packet) 17 gm Q6 PO 11/22/17 06:00 12/22/17 05:59 Bisacodyl (Dulcolax Supp) 10 mg DAILY PRN DE 11/20/17 10:30 12/20/17 10:29 Magnesium Hydroxide (Milk Of Magnesia Susp) 30 ml DAILY PRN PO 11/20/17 10:30 12/20/17 10:29 Hydromorphone HCl (Dilaudid Inj) 0.5-1mg prn moder... Q3H PRN IV 11/21/17 06:00 12/05/17 05:59 Acetaminophen/ Hydrocodone Bitart ([place] 5/325 Tab) 1-2 tabs prn moder... Q4H PRN PO 11/21/17 06:00 12/05/17 05:59 11/21/17 14:28 1 TAB Acetaminophen (Tylenol Tab) 1,000 mg Q8H PRN PO 11/20/17 10:30 12/20/17 10:29 Acetaminophen 100 ml @ 400 mls/hr Q8H PRN IV 11/20/17 10:30 12/20/17 10:29 Naloxone HCl (Narcan Inj) 0.1 mg Q5M PRN IV 11/20/17 10:30 12/20/17 10:29 Senna/Docusate Sodium (Senokot S Tab) 2 tab HS PO 11/20/17 21:00 12/20/17 20:59 11/20/17 19:53 2 TAB Sodium Biphosphate/ Sodium Phosphate (Fleet Enema) 132 ml ONE PRN DE 11/20/17 10:30 12/20/17 10:29 Hydroxyzine HCl (Vistaril Tab) 25 mg Q8H PRN PO 11/20/17 10:30 12/20/17 10:29 Al Hydroxide/Mg Hydroxide (Maalox Susp) 30 ml Q6H PRN PO 11/20/17 10:30 12/20/17 10:29 Famotidine (Pepcid Tab) 20 mg Q12 PRN PO 11/20/17 10:30 12/20/17 10:29 Diphenhydramine HCl (Benadryl Cap) 25 mg Q6H PRN PO 11/20/17 10:30 12/20/17 10:29 Atorvastatin Calcium (Lipitor Tab) 40 mg QPM PO 11/20/17 21:00 12/20/17 20:59 11/20/17 19:53 40 MG Clonazepam (Klonopin Tab) 0.25 mg QAM PO 11/21/17 09:00 12/21/17 08:59 11/21/17 08:50 0.25 MG HCTZ/Lisinopril (Prinzide 20-12.5MG Tab) 1.5 tab QAM PO 11/21/17 09:00 12/21/17 08:59 11/21/17 08:51 1.5 TAB Venlafaxine HCl (effeXOR EXTENDED REL CAP) 150 mg HS PO 11/20/17 21:00 12/20/17 20:59 11/20/17 19:53 150 MG Insulin Aspart (novoLOG ASPART) SLIDING SCALE If C... ACHS SC 11/20/17 16:00 12/20/17 15:59 11/21/17 12:54 6 UNITS Insulin Glargine (Lantus Solostar Pen) Q12 SC 11/20/17 21:00 12/20/17 20:59 11/21/17 08:36 9 UNITS Glucose (Glucose 40% Gel) 15-30 GRAMS 15 GRAMS... UD PRN PO 11/20/17 13:00 12/20/17 12:59 Glucose (Glucose Chew Tab) 4-8 Tablets 4 Tabl... UD PRN PO 11/20/17 13:00 12/20/17 12:59 Dextrose (Dextrose 50% 50ML Syringe) 25-50ML 25ML FOR ... UD PRN IV 11/20/17 13:00 12/20/17 12:59 Glucagon (Glucagon Inj) 1 mg UD PRN IM 11/20/17 13:00 12/20/17 12:59 Carbohydrates (Carbohydrates For Hypoglycemia) 15-30 GRAMS 15 grams if BSG 54-69... PRN PRN PO 11/20/17 13:00 12/20/17 12:59 Ketorolac Tromethamine (Toradol Inj) 15 mg Q6H PRN IV. 11/21/17 11:00 11/26/17 10:59
[2017-11-21] MEDS: ATORVASTATIN 40 MG TAB PO SCH (21:46)
[2017-11-21] MEDS: VENLAFAXINE HCL XR 150 MG CAPXR PO SCH (21:46)
[2017-11-21] MEDS: DOCUSATE SODIUM/SENNA 50/8.6MG TAB PO SCH (21:46)
[2017-11-21 22:51] VITALS: BP 127/66; PULSE 91; TEMP 37.1; O2SAT 90
[2017-11-22] MEDS: POLYETHYLENE (MIRALAX) 17 GM PACK PO SCH ×4 (05:23→23:28)
[2017-11-22] MEDS: HYDROCODONE/ACETAMIN 5/325MG TAB PO PRN ×2 (05:56→14:57)
[2017-11-22 06:08] LABS: HEMATOCRIT 27.2 % (42-52); HEMOGLOBIN 9.1 g/dL (14.0-18.0); MEAN CELL VOLUME 85.3 fL (80-100); MEAN CORPUSCULAR HEMOGLOBIN 28.5 pg (25-34); MEAN CORPUSCULAR HGB CONC 33.5 g/dl (32-36); MEAN PLATELET VOLUME 10.2 fL (7.4-10.4); PLATELET COUNT 252 K/uL (130-400); RED CELL DISTRIBUTION WIDTH CV 13.7 % (11.5-14.5); WHITE BLOOD COUNT 13.81 K/uL (4.8-10.8)
[2017-11-22 07:03] VITALS: BP 147/71; PULSE 95; TEMP 37; O2SAT 92
--- NOTE | 2017-11-22 07:37 | Orthopedic Progress Note ---
Orthopedic Progress Note Date of Service November 22, 2017. Subjective Post OP Day: 2 Reports: feeling well Additional Notes: Buck is postoperative day 2 lumbar decompression with instrumented fusion. He is doing well. No radicular leg pain. MERI drain output last shift was 75 cc. H&H is 29.1 and 27.2 respectively. He is passing flatus but no bowel movement. History and physical therapy standing 375 feet. Overall he is doing well. Objective calves soft nontender, N/V intact, dressing C/D/I, A&O x3, toes mobile Patient sitting in a chair eating breakfast. Is in no obvious distress. Calves are soft nontender bilaterally. Neurovascular intact bilaterally. Date Time Temp Pulse Resp B/P (MAP) Pulse Ox O2 Delivery O2 Flow Rate FiO2 11/22/17 07:03 37.0 95 17 147/71 (96) 92 Room Air 11/21/17 23:20 Room Air 11/21/17 22:51 37.1 91 16 127/66 (86) 90 Room Air 11/21/17 15:30 Room Air 11/21/17 15:07 37.2 88 18 112/55 (74) 96 Room Air 11/21/17 11:35 37.3 91 16 106/61 (76) 93 Room Air 11/21/17 09:52 91 94 11/21/17 08:08 Room Air Laboratory Results 24 Hours: Test 11/22/17 05:37 Hematocrit 27.2 % Hemoglobin 9.1 g/dL Assessment & Plan Assessment: Postoperative day 2 lumbar decompression with instrumented fusion Plan: We will maintain MERI drain it due to its output. Continue with bowel regimen. DVT prophylaxis is in the form of teds and SCDs. Continue with physical therapy. Anticipate discharge home tomorrow. Inhouse Planning DVT Prophylaxis: TEDs, SCDs Discharge Planning Discharge Planning: home DVT Prophylaxis: TEDs
[2017-11-22] MEDS: LISINOPRIL/HCTZ 20/12.5MG TAB PO SCH (08:59)
[2017-11-22] MEDS: INSULIN ASPART 100 UNITS/ML 3 ML PEN SC SCH ×4 (09:01→20:44)
[2017-11-22] MEDS: INSULIN GLARGINE SOLOSTAR 100 UNITS/ML 3 ML PEN SC SCH ×2 (09:02→20:45)
[2017-11-22] MEDS: CLONAZEPAM 0.5 MG TAB PO SCH (09:10)
[2017-11-22 15:02] VITALS: BP 122/61; PULSE 85; TEMP 37; O2SAT 93
--- NOTE | 2017-11-22 18:46 | Progress Note ---
Medicine Progress Note Date & Time of Visit: November 22, 2017 at 17:01. Subjective 72-year-old man with history of lumbar stenosis presents for elective lumbar decompression and fusion. He is doing well today postoperative day 2. He is tolerating p.o. He is afebrile. He is ambulating with minimal assistance. MERI drain is in place. Patient reports being not lightheaded when he walks around. Denies chest pain or shortness of breath. Objective Last 8 Hrs Date Time Temp Pulse Resp B/P (MAP) Pulse Ox O2 Delivery O2 Flow Rate FiO2 11/22/17 15:30 Room Air 11/22/17 15:02 37.0 85 18 122/61 (81) 93 Room Air Physical Exam: GEN: WNWD, in no acute distress, alert and appropriate HEENT: NC/AT, normal sclerae, MMM CARDIO: reg rate, S1/2 heard without m/g/r LUNGS: CTA bilaterally, no crackles, rales or wheezes, good diaphragmatic excursion ABD: soft, non-tender, non-distended, no rebound or guarding BACK: dry dressing is c/d/i over lower back with MERI drain in place draining blood-tinged serous drainage. EXTREMITY: RP and DP palpable 2+ bilat, no LE swelling or edema, extremities are warm and well-perfused NEURO: CN 2-12 grossly intact, sensation intact throughout including feet MUSC: 5/5 strength throughout, no focal deficits, ambulatory SKIN: warm and dry Laboratory Results: 11/22/17 05:37 11/21/17 05:14 Test 11/12/17 15:50 11/21/17 05:14 11/22/17 05:37 11/22/17 17:26 Urine Color YELLOW Urine Appearance CLEAR (CLEAR) Urine pH 5.0 (4.5-7.5) Urine Specific [place] 1.023 (1.000-1.030) Urine Protein NEG (NEG) Urine Glucose (UA) 1+ (NEG) Urine Ketones NEG (NEG) Urine Occult Blood NEG (NEG) Urine Nitrite NEG (NEG) Urine Bilirubin NEG (NEG) Urine Urobilinogen NEG (NEG) Urine Leukocyte Esterase NEG (NEG) Immature Granulocyte % (Auto) 0.4 % White Blood Count 11.85 K/uL (4.8-10.8) Red Blood Count 2.91 M/uL (4.7-6.1) 3.19 M/uL (4.7-6.1) Hemoglobin 8.3 g/dL (14.0-18.0) Hematocrit 24.4 % (42-52) Mean Corpuscular Volume 83.8 fL (80-100) 85.3 fL (80-100) Mean Corpuscular Hemoglobin 28.5 pg (25-34) 28.5 pg (25-34) Mean Corpuscular Hemoglobin Concent 34.0 g/dl (32-36) 33.5 g/dl (32-36) Platelet Count 194 K/uL (130-400) Mean Platelet Volume 10.4 fL (7.4-10.4) 10.2 fL (7.4-10.4) Neutrophils (%) (Auto) 84.8 % Lymphocytes (%) (Auto) 7.1 % Monocytes (%) (Auto) 7.7 % Eosinophils (%) (Auto) 0.0 % Basophils (%) (Auto) 0.0 % Neutrophils # (Auto) 10.05 K/uL (1.4-6.5) Lymphocytes # (Auto) 0.84 K/uL (1.2-3.4) Monocytes # (Auto) 0.91 K/uL (0.11-0.59) Eosinophils # (Auto) 0.00 K/uL (0-0.5) Basophils # (Auto) 0.00 K/uL (0-0.2) Immature Granulocyte # (Auto) 0.05 K/uL (0.00-0.02) Red Blood Cell Morphology Unremarkable Anion Gap 6.0 mmol/L (3-11) Est Creatinine Clear Calc Drug Dose 76.6 ml/min Estimated GFR () 82.0 Estimated GFR (Non- 70.8 BUN/Creatinine Ratio 20.3 (10-20) Estimated Average Glucose 180 mg/dl Hemoglobin A1c 7.9 % (4.5-5.6) Calcium Level 8.0 mg/dl (8.5-10.1) Hepatitis C Antibody Screen NEG (NEG) RDW Standard Deviation 42.0 fL (36.4-46.3) RDW Coefficient of Variation 13.7 % (11.5-14.5) Bedside Glucose 151 mg/dl (70-99) Last 24 Hours Test 11/21/17 20:45 5/3/18 05:37 11/22/17 08:12 11/22/17 12:16 Bedside Glucose 157 mg/dl 185 mg/dl 121 mg/dl White Blood Count 13.81 K/uL Red Blood Count 3.19 M/uL Hemoglobin 9.1 g/dL Hematocrit 27.2 % Mean Corpuscular Volume 85.3 fL Mean Corpuscular Hemoglobin 28.5 pg Mean Corpuscular Hemoglobin Concent 33.5 g/dl RDW Standard Deviation 42.0 fL RDW Coefficient of Variation 13.7 % Platelet Count 252 K/uL Mean Platelet Volume 10.2 fL Assessment & Plan 72-year-old man with history of lumbar stenosis presents for elective lumbar decompression and fusion. He is doing well today postoperative day 2. He is tolerating p.o. He is afebrile. He is ambulating with minimal assistance. MERI drain is in place. Patient reports being not lightheaded when he walks around. Denies chest pain or shortness of breath. 1. Postop state status post lumbar decompression and fusion-postop day 2, doing well. Continue management per Ortho. Continue PT/OT. Continue incentive spirometry. DVT prophylaxis when appropriate per Dr. Isaac 2. Diabetes type 2-controlled, continue insulin sliding scale and glargine while hospitalized. 3. Hypertension-controlled continue home medications. 4. Anemia secondary to postoperative blood loss-currently asymptomatic. H&H improved this morning. DVT prophylaxis-SCDs Full code Disposition likely DC to home on Sunday per Dr. Marlin Thompson DO [facility] hospitalist Current Inpatient Medications: Current Inpatient Medications Medications (Trade) Dose Ordered Sig/Blu Route Start Time Stop Time Status Last Admin Dose Admin Promethazine HCl 12.5 mg/Sodium Chloride 50.5 ml @ 202 mls/hr Q6H PRN IV 11/20/17 10:30 12/20/17 10:29 Ondansetron HCl (Zofran Inj) 4 mg Q6H PRN IV 11/20/17 10:30 12/20/17 10:29 Metoclopramide HCl (Reglan Inj) 10 mg Q6H PRN IV 11/20/17 10:30 12/20/17 10:29 Lorazepam (Ativan Tab) 0.5 mg Q8H PRN PO 11/20/17 10:30 12/20/17 10:29 Lorazepam 0.5 mg/ Syringe 0.25 ml @ 1 mls/min Q8H PRN IV 11/20/17 10:30 12/20/17 10:29 Pneumococcal Polysaccharide Vaccine 1 ea PRN PRN N/A 11/20/17 10:30 12/20/17 10:29 Influenza Virus Vacc Triv Types A&B 1 ea PRN PRN N/A 11/20/17 10:30 12/20/17 10:29 Polyethylene (Miralax Powder Packet) 17 gm Q6 PO 11/22/17 06:00 12/22/17 05:59 11/22/17 13:08 17 GM Bisacodyl (Dulcolax Supp) 10 mg DAILY PRN [place] 11/20/17 10:30 12/20/17 10:29 Magnesium Hydroxide (Milk Of Magnesia Susp) 30 ml DAILY PRN PO 11/20/17 10:30 12/20/17 10:29 Hydromorphone HCl (Dilaudid Inj) 0.5-1mg prn moder... Q3H PRN IV 11/21/17 06:00 12/05/17 05:59 Acetaminophen/ Hydrocodone Bitart ([place] 5/325 Tab) 1-2 tabs prn moder... Q4H PRN PO 11/21/17 06:00 12/05/17 05:59 11/22/17 14:57 1 TAB Acetaminophen (Tylenol Tab) 1,000 mg Q8H PRN PO 11/20/17 10:30 12/20/17 10:29 Acetaminophen 100 ml @ 400 mls/hr Q8H PRN IV 11/20/17 10:30 12/20/17 10:29 Naloxone HCl (Narcan Inj) 0.1 mg Q5M PRN IV 11/20/17 10:30 12/20/17 10:29 Senna/Docusate Sodium (Senokot S Tab) 2 tab HS PO 11/20/17 21:00 12/20/17 20:59 11/21/17 21:46 2 TAB Sodium Biphosphate/ Sodium Phosphate (Fleet Enema) 132 ml ONE PRN [place] 11/20/17 10:30 12/20/17 10:29 Hydroxyzine HCl (Vistaril Tab) 25 mg Q8H PRN PO 11/20/17 10:30 12/20/17 10:29 Al Hydroxide/Mg Hydroxide (Maalox Susp) 30 ml Q6H PRN PO 11/20/17 10:30 12/20/17 10:29 Famotidine (Pepcid Tab) 20 mg Q12 PRN PO 11/20/17 10:30 12/20/17 10:29 Diphenhydramine HCl (Benadryl Cap) 25 mg Q6H PRN PO 11/20/17 10:30 12/20/17 10:29 Atorvastatin Calcium (Lipitor Tab) 40 mg QPM PO 11/20/17 21:00 12/20/17 20:59 11/21/17 21:46 40 MG Clonazepam (Klonopin Tab) 0.25 mg QAM PO 11/21/17 09:00 12/21/17 08:59 11/22/17 09:10 0.25 MG HCTZ/Lisinopril (Prinzide 20-12.5MG Tab) 1.5 tab QAM PO 11/21/17 09:00 12/21/17 08:59 11/22/17 08:59 1.5 TAB Venlafaxine HCl (effeXOR EXTENDED REL CAP) 150 mg HS PO 11/20/17 21:00 12/20/17 20:59 11/21/17 21:46 150 MG Insulin Aspart (novoLOG ASPART) SLIDING SCALE If C... ACHS SC 11/20/17 16:00 12/20/17 15:59 11/22/17 13:08 7 UNITS Insulin Glargine (Lantus Solostar Pen) Q12 SC 11/20/17 21:00 12/20/17 20:59 11/22/17 09:02 18 UNITS Glucose (Glucose 40% Gel) 15-30 GRAMS 15 GRAMS... UD PRN PO 11/20/17 13:00 12/20/17 12:59 Glucose (Glucose Chew Tab) 4-8 Tablets 4 Tabl... UD PRN PO 11/20/17 13:00 12/20/17 12:59 Dextrose (Dextrose 50% 50ML Syringe) 25-50ML 25ML FOR ... UD PRN IV 11/20/17 13:00 12/20/17 12:59 Glucagon (Glucagon Inj) 1 mg UD PRN IM 11/20/17 13:00 12/20/17 12:59 Carbohydrates (Carbohydrates For Hypoglycemia) 15-30 GRAMS 15 grams if BSG 54-69... PRN PRN PO 11/20/17 13:00 12/20/17 12:59 Ketorolac Tromethamine (Toradol Inj) 15 mg Q6H PRN IV. 11/21/17 11:00 11/26/17 10:59
[2017-11-22] MEDS: ATORVASTATIN 40 MG TAB PO SCH (20:37)
[2017-11-22] MEDS: VENLAFAXINE HCL XR 150 MG CAPXR PO SCH (20:37)
[2017-11-22] MEDS: DOCUSATE SODIUM/SENNA 50/8.6MG TAB PO SCH (20:37)
[2017-11-22 22:47] VITALS: BP 129/71; PULSE 87; TEMP 37; O2SAT 95
[2017-11-23] MEDS: POLYETHYLENE (MIRALAX) 17 GM PACK PO SCH (05:42)
[2017-11-23 07:21] VITALS: BP 145/54; PULSE 97; TEMP 36.9; O2SAT 94
--- NOTE | 2017-11-23 09:04 | Progress Note ---
Progress Note Date of Service November 23, 2017. Progress Note Subjective: Patient presents postoperative day #3. He is doing quite well at this point he had a bowel movement last night. He is no longer feeling distended. His pain is well controlled just with Tylenol this morning but has been taking [place] up to 4 day. He has been ambulating independently and has cleared physical therapy. At this point he would like to go home. Objective: On exam the patient stands and moves easily about the exam room. His dressing is clean dry and intact. MERI drain is holding suction with 55 cc out on the last shift. His calves are supple nontender abdomen soft nontender strength is 5 out of 5 detailed muscle testing without exception. Assessment: Patient is stable postop day #3 and ready for home discharge. Plan: At this point we will discharge the patient to home. We reviewed his restrictions and home instructions. He is to change his dressing once daily until it is dry once it is dry he may begin showering. He is to avoid any full bending at the waist and should not lift anything heavier than 5 pounds. He is going to use [place] for pain control and a prescription was given. We will see him back in the office in 2 weeks for follow-up visit. If he develops any fevers chills increased pain or drainage from incision he will contact our office. Test 11/12/17 15:30 11/12/17 15:50 11/21/17 05:14 11/22/17 05:37 Sodium Level 137 138 Potassium Level 4.0 4.1 Chloride Level 100 104 Carbon Dioxide Level 30 28 Anion Gap 7.0 6.0 Blood Urea Nitrogen 18 22 Creatinine 1.08 1.06 Est Creatinine Clear Calc Drug Dose 75.2 76.6 Estimated GFR () 80.2 82.0 Estimated GFR (Non- 69.2 70.8 BUN/Creatinine Ratio 16.7 20.3 Random Glucose 132 146 Calcium Level 9.6 8.0 Immature Granulocyte % (Auto) 0.2 0.4 White Blood Count 8.30 11.85 13.81 Red Blood Count 4.51 2.91 3.19 Hemoglobin 12.9 8.3 9.1 Hematocrit 38.0 24.4 27.2 Mean Corpuscular Volume 84.3 83.8 85.3 Mean Corpuscular Hemoglobin 28.6 28.5 28.5 Mean Corpuscular Hemoglobin Concent 33.9 34.0 33.5 Platelet Count 266 194 252 Mean Platelet Volume 10.1 10.4 10.2 Neutrophils (%) (Auto) 64.6 84.8 Lymphocytes (%) (Auto) 26.4 7.1 Monocytes (%) (Auto) 6.1 7.7 Eosinophils (%) (Auto) 2.3 0.0 Basophils (%) (Auto) 0.4 0.0 Neutrophils # (Auto) 5.36 10.05 Lymphocytes # (Auto) 2.19 0.84 Monocytes # (Auto) 0.51 0.91 Eosinophils # (Auto) 0.19 0.00 Basophils # (Auto) 0.03 0.00 Immature Granulocyte # (Auto) 0.02 0.05 Urine Color YELLOW Urine Appearance CLEAR Urine pH 5.0 Urine Specific [place] 1.023 Urine Protein NEG Urine Glucose (UA) 1+ Urine Ketones NEG Urine Occult Blood NEG Urine Nitrite NEG Urine Bilirubin NEG Urine Urobilinogen NEG Urine Leukocyte Esterase NEG RDW Standard Deviation 41.1 42.0 RDW Coefficient of Variation 13.4 13.7 Red Blood Cell Morphology Unremarkable Estimated Average Glucose 180 Hemoglobin A1c 7.9 Hepatitis C Antibody Screen NEG Test 11/22/17 20:29 11/23/17 08:04 POC Glucose 143 163
[2017-11-23] MEDS: LISINOPRIL/HCTZ 20/12.5MG TAB PO SCH (09:13)
[2017-11-23] MEDS: INSULIN ASPART 100 UNITS/ML 3 ML PEN SC SCH (09:16)
[2017-11-23] MEDS: CLONAZEPAM 0.5 MG TAB PO SCH (09:17)
[2017-11-23] MEDS: INSULIN GLARGINE SOLOSTAR 100 UNITS/ML 3 ML PEN SC SCH (09:17)
[2017-11-23 09:53] VITALS: BP 145/54; PULSE 97; TEMP 36.9; O2SAT 94
--- NOTE | 2017-11-26 09:30 | Discharge Summary ---
Orthopedic Discharge Summary Admission Date/Reason November 20, 2017 at 06:01 Lumbar Spinal Stenosis. Discharge Date/Disposition November 23, 2017 Home Diagnosis Principal Diagnosis: lumbar spinal stenosis Medication Reconciliation New Medications: Hydrocodone/Acetaminophen 5MG/325MG ([place] 5MG/325MG) Tab 1-2 TAB PO Q4H PRN for Moderate - severe pain for 30 Days, #60 TAB PRN PAIN Continued Medications: Atorvastatin (Lipitor) 40 Mg Tab 40 MG PO QPM, TAB Clonazepam (Klonopin) 0.5 Mg Tab 0.25 MG PO QAM, 0 Refills Coenzyme Q10 (Ubidecarenone) (Coq10) 100 Mg Cap 100 MG PO QPM Lisinopril/Hctz (Zestoretic 20MG/12.5MG) Tab 1.5 TAB PO QAM, TAB Metformin Hcl (Glucophage) 500 Mg Tab 1000 MG PO BID, TAB Venlafaxine Hcl (Effexor Extended Rel) 150 Mg Cap 150 MG PO HS, CAP Admission Physical Exam As per Admitting History & Physical. Hospital Course pt had an uneventful hospital course. labs were stable. pain controlled. progressed with PT, therefore, discharged home on POD#3 Discharge Instructions Please refer to the electronic Patient Visit Report (Discharge Instructions) for additional information.
== END 2017-11-23 11:30 | disposition home or self-care (01) | DRG 460 ==
LOC: C.ACU 05:39 → C.3E 06:01 → ENRESERV 11:25 → CMPBEDREQ 12:17
PROVIDERS: ADMIT Orthopaedic Surgery Orthopaedic Surgery of the Spine; ATTEND Orthopaedic Surgery Orthopaedic Surgery of the Spine
PROC: 0SG3071 Fusion of Lumbosacral Joint with Autologous Tissue Substitute, Posterior Approach, Posterior Column, Open Approach (ICD-10-PCS; principal; 2017-11-20 07:45)
PROC: 0SG1071 Fusion of 2 or more Lumbar Vertebral Joints with Autologous Tissue Substitute, Posterior Approach, Posterior Column, Open Approach (ICD-10-PCS; principal; 2017-11-20 07:45)
PROC: 0SP004Z Removal of Internal Fixation Device from Lumbar Vertebral Joint, Open Approach (ICD-10-PCS; principal; 2017-11-20 07:45)
DX: M48.062 Spinal stenosis, lumbar region with neurogenic claudication (principal); D62 Acute posthemorrhagic anemia; E11.9 Type 2 diabetes mellitus without complications; I10 Essential (primary) hypertension; E78.5 Hyperlipidemia, unspecified; F41.1 Generalized anxiety disorder; F32.9 Major depressive disorder, single episode, unspecified; Z79.82 Long term (current) use of aspirin; Z79.84 Long term (current) use of oral hypoglycemic drugs; Z79.899 Other long term (current) drug therapy; Z98.1 Arthrodesis status; Z86.718 Personal history of other venous thrombosis and embolism; Z87.891 Personal history of nicotine dependence; Z88.0 Allergy status to penicillin; Z88.5 Allergy status to narcotic agent

== ENCOUNTER 2023-10-01 05:08 | Inpatient (IN) ==
--- NOTE | 2023-09-20 12:16 | PAT Medication Instructions ---
Medication Instructions Date of Service September 20, 2023 Home Medications clonazepam 0.5 mg tablet 0.25 mg PO DAILY PRN Anxiety coenzyme Q10 100 mg capsule (CoQ-10) 100 mg PO QAM cyanocobalamin (vitamin B-12) 500 mcg tablet (Vitamin B-12) 500 mcg PO QAM ibuprofen 200 mg tablet (Advil) 200 mg PO Q6H PRN Pain lisinopril 20 mg-hydrochlorothiazide 12.5 mg tablet 1 tab PO QAM metformin 500 mg tablet 500 mg PO BID pyridoxine (vitamin B6) 100 mg tablet (Vitamin B-6) 100 mg PO QAM venlafaxine 150 mg tablet,extended release 24 hr 150 mg PO HS lisinopril 20 mg-hydrochlorothiazide 12.5 mg tablet 0.5 tab PO HS pregabalin 150 mg capsule 150 mg PO BID ASK your surgeon for instructions ibuprofen 200 mg tablet (Advil) 200 mg PO Q6H PRN Pain STOP taking 2 weeks before surgery (or as soon as possible if surgery is within 2 weeks) coenzyme Q10 100 mg capsule (CoQ-10) 100 mg PO QAM DO NOT take the morning of surgery cyanocobalamin (vitamin B-12) 500 mcg tablet (Vitamin B-12) 500 mcg PO QAM lisinopril 20 mg-hydrochlorothiazide 12.5 mg tablet 1 tab PO QAM metformin 500 mg tablet 500 mg PO BID pyridoxine (vitamin B6) 100 mg tablet (Vitamin B-6) 100 mg PO QAM Take morning of surgery With a small sip of water, OTHERWISE NOTHING TO EAT OR DRINK AFTER MIDNIGHT: clonazepam 0.5 mg tablet 0.25 mg PO DAILY PRN Anxiety (if needed) pregabalin 150 mg capsule 150 mg PO BID Take evening before surgery clonazepam 0.5 mg tablet 0.25 mg PO DAILY PRN Anxiety (if needed) metformin 500 mg tablet 500 mg PO BID venlafaxine 150 mg tablet,extended release 24 hr 150 mg PO HS lisinopril 20 mg-hydrochlorothiazide 12.5 mg tablet 0.5 tab PO HS pregabalin 150 mg capsule 150 mg PO BID Other Notes If you have any questions please call us at [phone] or [phone] or [phone] or [phone]
--- NOTE | 2023-09-24 09:44 | Anesthesiology Consultation ---
Date of Service September 24, 2023 Assessment & Plan (1) Encounter for pre-operative examination: Chart Review Chart Review: Acceptable Risk for Surgery and Patient seen in Pre Admission Testing - Check BSG AM DOS Per PAT appt on 09/24/23, cold symptoms x 2-3 weeks ago. Symptoms significantly improved (did test Covid negative with home test). Has mild residual dry cough- occasional. Continues to improve. No recent illness/disease positive tests. Will leave to surgeon's discretion if preop Covid testing needed. No additional testing or precautions needed from anesthesia standpoint but did recommend patient follow up with surgeon if cough continues in regards to cervical surgery. Patient voices understanding Patient seen by cardiology 09/27/2023 = patient seen for preop evaluation. Abnormal EKG showing sinus rhythm with RBBB and LAHB with poor precordial R wave progression suggestive of lateral infarct. Findings on EKG not acute and were present on EKG 06/04/2022. No prior history of cardiovascular disease. Preoperative assessmentother than EKG abnormality he has no known cardiovascular disease. Physically active with no associated symptoms. NYHA functional class I; CCVS angina score 0. Exercise tolerance easily exceeds 5 METS. Hyperlipidemiacontrolled on statin. Hypertensioncontrolled. Diabetesacceptable control. Proceed with cervical spine surgery under [facility] without further cardiovascular testing. Current medical program is good. Follow-up in 1 year. Per PCP letter 09/25/2023 = low risk for complications for proposed surgery. Patient is cleared for scheduled surgery. Patient seen by PCP 09/21/23= seen for preop evaluation. Revised cardiac risk index score of no risk factors0.4% (95% CL: 0.10.8). Stop bang score 3. Diabetes. Preoperative clearancepatient is cleared for surgery pending labs/EKG. Preop testing will be done next week at [facility]. Cervical spondylosisscheduled for surgery. Dyslipidemia. Hypertension. 142/74 todayon medications. Right bundle branch block. Generalized anxiety. Personal history of DVT in 2010. Patient's functional status is greater than 4 METS. Patient is low medical risk for listed procedure. Addendum 09/25/2023 = labs and CXR stable. Abnormal EKG, cardiology referral placed. Patient may proceed with surgery after cardiology clearance. Removal of previous hardware, L2-L4 decompression, L2-S1 instrument fusion 11/20/2017 = done under [facility] with grade 1 view with MAC #3. ETT #8.0. Teaching & Discussion Pre-Anesthesia Teaching/Discussion Notes: Instructed NPO after midnight before surgery,except medications with 15 cc of water. Medication instructions provided according to the PAT guidelines. History Surgery Operation Date: 10/01/23 10:05 Proposed Procedures p Anterior Cervical Discectomy and Fusion C3-C5 with Spinal Cord Monitoring - Donald Isaac, Height/Weight Height: 5 ft 8.5 in Weight: 96 kg Allergies Allergy/AdvReac Type Severity Reaction Status Date / Time chlorhexidine Allergy Severe rash/itchin Verified 09/19/23 12:07 g Penicillins AdvReac Intermediate oral pills Verified 09/19/23 12:06 mouth sore and mouth ulcers as a child oxycodone AdvReac Mild NAUSEA Verified 09/19/23 12:06 Medications Home Medications Medication Instructions Recorded Confirmed Last Taken clonazepam 0.5 mg tablet 0.25 mg PO DAILY PRN Anxiety 05/27/21 09/19/23 Unknown coenzyme Q10 100 mg capsule 100 mg PO QAM 05/27/21 09/19/23 Unknown (CoQ-10) cyanocobalamin (vitamin B-12) 500 500 mcg PO QAM 05/27/21 09/19/23 Unknown mcg tablet (Vitamin B-12) ibuprofen 200 mg tablet (Advil) 200 mg PO Q6H PRN Pain 05/27/21 09/19/23 Unknown lisinopril 20 1 tab PO QAM 05/27/21 09/19/23 06/01/21 05:30 mg-hydrochlorothiazide 12.5 mg tablet metformin 500 mg tablet 500 mg PO BID 05/27/21 09/19/23 Unknown pyridoxine (vitamin B6) 100 mg 100 mg PO QAM 05/27/21 09/19/23 Unknown tablet (Vitamin B-6) venlafaxine 150 mg tablet,extended 150 mg PO HS 05/27/21 09/19/23 Unknown release 24 hr lisinopril 20 0.5 tab PO HS 09/19/23 09/19/23 Unknown mg-hydrochlorothiazide 12.5 mg tablet pregabalin 150 mg capsule 150 mg PO BID 09/19/23 09/19/23 Unknown Past Medical History Medical History (Updated 09/27/23 @ 15:15 by Jazmyne Mccloud PA-C) Anxiety and depression Cardiac murmur since childhood 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; last echo > 20 years ago no significant murmur noted at PAT appt 09/24/23 DM type 2 (diabetes mellitus, type 2) Glucose stable History of DVT (deep vein thrombosis) 2013 RUE - post op - treated with AC- treated with Lovenox injection x several months- no issues since - has since had lumbar surgery - no issues History of skin cancer removed HLD (hyperlipidemia) HTN (hypertension) Exercise / Class Metabolic Activity II 4-5 Yardwork/Stairs/Walk up hill (one flight of stairs - no chest pain or SOB ) Past Family History Family History Other No family history of adverse response to anesthesia Past Surgical History Surgical History H/O cervical spine surgery "2011: Cervical corpectomy C6 by Dr. Isaac " H/O Spinal surgery "2008: Lumbar decompression and fusion L4-L5 by Dr. Isaac. 2018: hardware removal L4-L5, decompression and fusion L2-S1 by Dr. Isaac" History of cataract surgery Left cataract History of cervical spinal surgery ROM WNL History of colonoscopy History of esophagogastroduodenoscopy (EGD) History of excision of pilonidal cyst x2 History of left knee surgery Past Anesthesia History No Hx of Anesthesia Complications and No Family Hx of Anesthesia Complications History of PONV No Hx of PONV and No Hx of Motion Sickness Social History Smoking Status: Former smoker Do You Dip or Chew Tobacco: No Smoking End Date: 55 years ago Hx Alcohol Use: No Hx Substance Use: No substance use type: does not use Review of Systems - Cold symptoms - 2-3 weeks ago- symptoms resolved with exception to mild residual cough (dry) - Hx of snoring- occ witnessed apnea- no hx of sleep study Patient denies chest pain, shortness of breath, dyspnea on exertion, reflux, wheezing, palpitations. No hx of seizures, stroke, VA. No hx of blood transfusions Physical Exam Vital Signs VITALS BP 129/74 P 81 TEMP 98.6 SP02 94% RESP 16 Constitutional no acute distress ENMT Mouth: no TMJ clicking Thyromental Distance: > or= 3.5 Finger Breadths (4.0) Mallampati Class: I Neck + limited neck extension Respiratory normal respiratory effort; no respiratory distress Auscultation: lungs clear to auscultation bilaterally; no wheezes Cardiovascular Rate/Rhythm: regular rate and regular rhythm Heart Sounds: no murmur Vessels: no carotid bruit Musculoskeletal Spine: no pain with cervical ROM Extremities: extremities normal to inspection Psychiatric Orientation: alert Lab Results Anesthesia Preop Results Results Anesthesia Widget: WBC 7.78 K/ul (4.8-10.8) 09/24/23 Hgb 13.3 g/dl (14.0-18.0) L 09/24/23 Hct 40.5 % (42.0-52.0) L 09/24/23 Plt 310 K/uL (130-400) 09/24/23 Na 140 mmol/L (136-145) 09/24/23 K 3.8 mmol/L (3.5-5.1) 09/24/23 Cl 101 mmol/L (98-107) 09/24/23 CO2 32 mmol/L (21-32) 09/24/23 BUN 26 mg/dl (6-23) H 09/24/23 Creat 1.02 mg/dl (0.6-1.4) 09/24/23 Glucose Level 120 mg/dl (70-99(Fasting)) H 09/24/23 PT 10.8 Seconds (9.0-12.0) 09/24/23 PTT 29 Seconds (21-31) 09/24/23 INR 1.0 (0.9-1.1) 09/24/23 HA1c 7.0 % (4.5-5.6) H 09/24/23 Urine Color Yellow 09/24/23 Urine Appearance Clear (Clear) 09/24/23 Urine pH 6.5 (4.5-7.5) 09/24/23 Urine Specific [place] 1.016 (1.000-1.030) 09/24/23 Urine Protein Negative (Negative) 09/24/23 Urine Glucose (UA) Negative (Negative) 09/24/23 Urine Ketones Negative (Negative) 09/24/23 Urine Blood Negative (Negative) 09/24/23 Urine Nitrite Negative (Negative) 09/24/23 Urine Bilirubin Negative (Negative) 09/24/23 Urine Urobilinogen Negative (Negative) 09/24/23 Urine Leukocyte Esterase Negative (Negative) 09/24/23 Blood Type A Positive 09/24/23 Antibody Screen NEGATIVE 09/24/23 Testing Electrocardiogram Date: 09/24/23 Findings: + NSR @ (75bpm) Left anterior fascicular block RBBB Inferior infarct (cited on or before November 12, 2017). Old anterolateral infarct When compared to EKG from November 12, 2017- criteria for inferior infarct are no longer present, criteria for anterolateral infarct now present per cardio (Discussed EKG with Dr. Ovalle- will leave to PCP's discretion if further work up needed) Chest X-Ray Date: 09/24/23 Findings: + NAD
--- OUTSIDE RECORDS SUMMARY | 2023-10-01 05:26 | External Medical Summary | Summary of Care ---
Author Name Unknown Organization [facility] Address [address] [address] Phone [phone] Care Team Providers Care Life Sciences Manager Name Role Phone Fareed Nolen MD Primary Care Provider Encounter Details Date Type Department Care Team (Late st Contact Info) Description 09/26/2023 Orders Only [facility] [address] [place] [phone] Fareed Nolen MD [address] [facility] [place] [address] Allergies Active Allergy Reactions Criticality Noted Date Comments Chlorhexidine Low 06/01/2021 Other reaction(s): RASH Penicillins 06/09/2002 thrush sore mouth Rash swelling Oxycodone-Acetaminophen Nausea/vomiting 011 documented as of this encounter (statuses as of 09/26/2023) Medications Medication Sig Dispensed Refills Start Date End Date Status Coenzyme Q10 100 MG Tablet Take 1 Tab by mouth daily. 30 Tab 5 03/18/2015 Active Purlear-3 Fatty Acids (FISH OIL) 1000 MG Capsule Take 1 Capsule by mouth in the morning. 0 Active zoster vac recomb adjuvanted (SHINGRIX) 50 MCG/0.5ML injectionIndications :Need for vaccination for zoster Inject 0.5 mL into a large muscle now and repeat dose in 60 to 180 days 1 Each 1 02/24/2020 Active Additional Information Patient not taking.Reported on 06/06/2023 aspirin 81 MG chewable tabletIndications:Ty pe 2 diabetes mellitus with hemoglobin A1c goal of less than 7.0% (HCC) Take 1 Tab by mouth daily. with food. 100 Tab 5 02/24/2020 Active B-12 500 MCG Oral TabletIndications:En counter for long-term (current) use of medications One daily. May use yonh-mlz-jgzrops 100 Tab 3 10/04/2020 Active Venlafaxine HCl ER 150 MG Oral Capsule Extended Release 24 Hour (Effexor XR) Take by mouth 1 Capsule in the morning. 90 Capsule 3 11/25/2021 Active Lisinopril-hydroCHLO ROthiazide 20-12.5 MG Oral TabletIndications:HT N, goal to be determined TAKE ONE TABLET BY MOUTH EVERY MORNING & TAKE ONE-HALF TABLET BY MOUTH EVERY EVENING 135 Tablet 1 04/13/2023 4 Active Rosuvastatin Calcium 10 MG Oral Tablet (Crestor)Indications :Dyslipidemia, goal LDL below 100 TAKE ONE TABLET BY MOUTH EVERY MORNING 90 Tablet 1 04/13/2023 Active Pregabalin 150 MG Oral Capsule (Lyrica)Indications: Painful leg and moving toes syndrome,Neuropathy, Paresthesia TAKE ONE CAPSULE BY MOUTH EVERY MORNING & TAKE ONE CAPSULE BY MOUTH EVERY DAY BEFORE BEDTIME 60 Capsule 5 07/26/2023 Active metFORMIN HCl ER 500 MG Oral Tablet Extended Release 24 Hour (Glucophage XR)Indications:Type 2 diabetes mellitus with hemoglobin A1c goal of less than 7.0% (HCC) TAKE TWO TABLETS BY MOUTH TWICE A DAY WITH MORNING & EVENING MEALS 360 Tablet 3 07/27/2023 5 Active clonazePAM 0.25 MG Oral Tablet Disintegrating (KlonoPIN)Indication s:Anxiety Dissolve 1 Tablet on tongue daily as needed for Anxiety. 30 Tablet 0 08/09/2023 Active Venlafaxine HCl ER 150 MG Oral Capsule Extended Release 24 Hour (Effexor XR) Take 1 capsule by mouth daily in the morning. 90 Capsule 1 08/15/2023 Active clonazePAM 0.5 MG Oral Tablet (KlonoPIN) Take 1 Tablet by mouth daily. 30 Tablet 5 08/29/2023 Active Additional Information Patient not taking.Reported on 09/21/2023 Venlafaxine HCl ER 150 MG Oral Capsule Extended Release 24 Hour (Effexor XR) Take 1 Capsule by mouth in the morning. 90 Capsule 1 08/29/2023 Active documented as of this encounter (statuses as of 09/26/2023) Active Problems Problem Noted Date Diagnosed Date Nocturia 10/04/2020 Gallbladder sludge 03/02/2020 Overview: 03/02/2020 Patient is asymptomatic now (episode lasted 3 days) . Will repeat LFT as planned and then ultrasound versus MRCP Paresthesia of both lower extremities 10/04/2018 Status post lumbar spinal fusion 10/04/2018 Overview: 11/2017 and 2007 RBBB (right bundle branch block) 11/15/2017 History of peptic ulcer disease 07/27/2017 Recurrent major depressive disorder, in full rem ission 07/25/2016 Overview: 11/14/2016 has been taking 1 caps instead of two And Klonopin 1/2 of 0.5 in AM will see psych at [facility] Heart murmur, systolic 04/05/2016 Personal history of skin cancer 05/27/2015 Overview: ICD10 (Call me Pancho) History Basal Cell Carcinoma Chest/C44.510 Class 1 obesity due to exces s calories with serious comorbidity and body mass index (BMI) of 33.0 to 33.9 in adult 10/20/2013 Overview: 07/27/2017 +7 lbs 04/05/2016 lost 12 lbs ICD-10 update of inactive diagnosis History of GI bleed 01/16/2013 Overview: 01/16/2013 Normal esophagus. - Non-bleeding erosive gastropathy. This was biopsied. - Duodenal erosions. - Most likely from ASA use 01/16/2013 colo [place] Microcytosis 08/16/2011 CERVICAL DISC DISPLACMNT s/p corpectomy C6 Dr Isaac 04/03/2011 Personal history of venous thrombosis and emboli sm 04/03/2011 Overview: 2010 (p neck surgery) in the R arm Dyslipidemia, goal LDL below 70 07/05/2009 Overview: 10/04/2018 will incr to atorva 80 LDL (CALCULATED)(mg/dL) Aissatou Dt/Tm Resulted Value Status 03/10/15 8:53A 03/10/15 185* see letter prob not taking Atorva, will discuss LDL (CALCULATED)(mg/dL) Aissatou Dt/Tm Resulted Value Status 10/17/13 7:21A 10/17/13 120 FINAL 11/21/2012 LDL =158 Will switch to Atorva 40 Stop Simva 20 01/02/2012 LDL (CALCULATED)(mg/dL) Aissatou Dt/Tm Resulted Value Status 12/20/11 8:53A 12/20/11 158* per pt "due to problems with depression/anxiety, I have not been. Taking it regularly. I'm beginning to feel better on Pristiq. I'll be more regular with the Simvastatin" LDL DIRECT(REFLEX)(mg/dL) Aissatou Dt/Tm Resulted Value Status 12/20/11 8:53A 12/20/11 FINAL Value: NOT APPLICABLE LDL (CALCULATED)(mg/dL) Aissatou Dt/Tm Resulted Value Status 08/11/11 8:23A 08/11/11 116 FINAL 08/16/2011 stop Zetia incr Simva to 20qd Per Lipid Taxonomy. HTN, GOAL BELOW 140/90 06/10/2009 Overview: Modified per HTN protocol #16. Displacement of lumbar inter vertebral disc without myelopathy 05/12/2008 Overview: 11/14/2016 No sign back symptoms now . (lost weight which seems to help but then up ) Seen by dr Chicas in the fall of 2015 L5S1 was getting slowly worse HNP L4-L5 and severe spinal stenosis L4-L5 Fusion Jun 2008 Type 2 diabetes mellitus wit h hemoglobin A1c goal of less than 7.5% 10/13/2005 Overview: Glucose Results: GLUCOSE(mg/dL) Aissatou Dt/Tm Resulted Value Status 10/30/11 8:25A 10/30/11 156* FINAL 08/11/11 8:23A 08/11/11 128* FINAL 11/08/10 8:10A 11/08/10 114 FINAL Hemoglobin AIC Results: HEMOGLOBIN, A1C(%) Aissatou Dt/Tm Resulted Value Status 10/30/11 8:25A 10/30/11 6.5* FINAL 08/11/11 8:23A 08/14/11 6.3 FINAL 05/12/10 8:15A 05/12/10 5.9 FINAL ICD-10 update of inactive term Advance directive discussed with patient 005 Overview: 03/04/2018 Will give 5 wishes brochure 07/27/2017 Encouraged to bring 04/05/2016 Discussed AdV DIr again pt confirms 1 POA 2 POA 2 Reggie Son Has at home Encouraged again to bring 03/18/2015 Discussed AdV DIr 1 POA 2 POA 2 Reggie Son Has at home Encouraged to bring SEAN (generalized anxiety disorder) Overview: with secondary depression documented as of this encounter (statuses as of 09/26/2023) Resolved Problems Problem Noted Date Diagnosed Date Resolved Date Major depressive disorder, r ecurrent episode, in partial remission 01/04/2016 07/25/2016 Heme positive stool 11/21/2012 07/27/19 18 Overview: 11/25/2012 bloodwork reveals no anemia or iron def. will repeat FOBT as guaiac might have been falsely + 11/21/2012 on exam non bloody but sign positive Preoperative cardiovascular examination 08/16/2011 10/02/2018 Overview: PSA Results: PSA(ng/mL) Aissatou Dt/Tm Resulted Value Status 07/26/17 9:12A 07/26/17 2.24 FINAL PSA SCREENING(ng/mL) Aissatou Dt/Tm Resulted Value Status 04/04/16 10:56A 04/05/16 2.07 FINAL 08/10/14 9:27A 08/10/14 1.81 FINAL 04/04/16 10:56A 04/05/16 2.07 FINAL 08/10/14 9:27A 08/10/14 1.81 FINAL 03/27/13 10:53A 03/27/13 1.45 FINAL 08/10/14 9:27A 08/10/14 1.81 FINAL 03/27/13 10:53A 03/27/13 1.45 FINAL 12/20/11 8:53A 12/20/11 1.63 FINAL Anticoagulation management encounter 04/03/2011 10/02/2018 director long term care current use of ant icoagulant therapy 04/03/2011 04/05/2016 Overview: 08/16/2011 completed in jun 2011 ICD-10 update of inactive term Trigger finger 11/10/2008 07/27/2017 Overview: 07/27/2017 resolved Right Ring Finger Personal history of malignan t neoplasm of skin 05/12/2008 05/27/2015 Overview: (Call me Pancho) History Basal Cell Carcinoma Chest/173.51 Per bx R malar area hypertrophic and bowenoid ak 'extends to the lateral margins' I think we can follow this Wilton Steel MD 11/22/2012 4:51 PM HYPERTENSION NOS 06/10/2009 Overview: Modified per HTN protocol #16. PURE HYPERCHOLESTEROLEM 06/22 Overview: Per Lipid Taxonomy. Generalized anxiety disorder 07/27/2017 MDD (major depressive disord er), recurrent episode, moderate 07/25/2016 documented as of this encounter (statuses as of 09/26/2023) Immunizations Name Administration Dates Next Due COVID-19 mRNA, LNP-s, No Pre serve, 2-Dose Series (Moderna) 09/20/2020,08/17/2020 COVID-19, mRNA, LNP-s, PF, B ooster, 100mcg/0.5mg (Moderna) 06/13/2021 Covid-19, Mrna, Lnp-s, Pf, B ivalent, 30 Mcg, IM, 12 yrs and above (Pfizer) 05/10/2022 Pneumococcal Conjugate Vacc, 13 Valent (Prevnar) 11/14/2016 Pneumococcal Polysaccharide PPV23 (Pneumovax) 08/20/2012 Seasonal Influenza, PF, 6 M & above, IM , (FluLaval or Fluzone) 07/27/2017 Seasonal Influenza, Quadriva lent Hd (Fluzone Hd) 03/29/2023 Seasonal Influenza, Split, I IV3, With Preserve, Inj 05/12/2014,07/09/2012,08/16/2011,05/16,05/14/2008 TD, Preservative Free 11/15/2005 TDAP (age 10 and older)(Boostrix) 06/21/2018 TDAP (age 11 and older)(Adacel) 08/16/2011 Varicella Zoster Vaccine (Adult) 10/20/2013 documented as of this encounter Social History Tobacco Use Types Packs/Day Years Used Date Smoking Tobacco: Never Smokeless Tobacco: Never Alcohol Use Standard Drinks/Week Comments Yes 0 (1 standard drink = 0.6 oz pur e alcohol) very rare glass of wine PHQ-2 Answer Date Recorded PHQ Adult Total Score 0 05/10/2022 Hunger Vital Sign Answer Date Recorded Within the past 12 months, y ou worried that your food would run out before you got the money to buy more. Never true 08/08/19 24 Within the past 12 months, t he food you bought just didn't last and you didn't have money to get more. Never true 08/08/2023 Sex and Gender Information Value Date Recorded Sex Assigned at Not on file Gender Identity Not on file Sexual Orientation Not on file Job Start Date Occupation Industry Not on file Not on file Not on file documented as of this encounter Plan of Treatment Upcoming Encounters Date Type Department Care Team (Late st Contact Info) Description 11/28/2023 7:00 AM EDT Office Visit Family Practice, [place] [address] [phone] Fareed Nolen MD [address] [address] 01/22/2024 7:40 AM EDT Office Visit Dermatology, [place] [address] [address] Mami Bermeo PA-C [address] [phone] 06/11/2024 9:20 AM EST Office Visit Neurology, [place] [address] [phone] Angie Barragan MD [address] [place] [address] Scheduled Procedures Name Priority Associated Diagnoses Date/Ti me COLONOSCOPY FLEXIBLE PROXIMA L DIAGNOSTIC Recall History of colonic polyps Health Maintenance Due Date Last Done Comments Zoster Vaccines (2 of 3) 12/15/2013 10/20/2013 COVID-19 Vaccine (5 - 2022- season) 2023 05/10/2022, 06/13/2021, 09/20/2020, Additional history exists Depression Screening 05/10/2023 05/10/2022 HbA1c 03/26/2024 09/24/2023, 09/0 01/2023, 05/10/2022, Additional history exists Albumin/Creatinine Ratio 03/29/2024 023, 02/25/2020, 10/03/2018, Additional history exists B-12 03/29/2024 03/29/2023, 08/24, 11/23/2020, Additional history exists Diabetic Eye Exam 09/20/2024 09/21/2023, , 08/30/2022, Additional history exists Diabetic Foot Exam 09/20/2024 09/21/2023, 1 , 02/24/2020, Additional history exists GFR 09/23/2024 09/24/2023, 09/0 01/2023, 06/04/2022, Additional history exists COLONOSCOPY-EVERY 5 YRS AGES 18-100 03/21/2028 03/21/2023, 03/21/2023, 03/21/2018, Additional history exists DTaP,Tdap,and Td Vaccines (3 - Td or Tdap) 06/21/2028 06/21/2018, 08/16/2011, 11/15/2005 Pneumococcal Vaccine: 65+ Years Completed 11/14/2016, 08/20/2012 Influenza Vaccine (FLU shot) Completed 01/2023, 07/27/2017, 05/12/2014, Additional history exists GARDASIL-HPV IMMUNIZATION SERIES Aged Out No longer eligible based on patient's age to complete this topic MENINGOCOCCAL (MENACTRA/MENVEO) Aged Out No longer eligible based on patient's age to complete this topic documented as of this encounter Medical Devices Not on filedocumented as of this encounter Procedures Procedure Name Priority Date/Time Associated Diagnosis Comments CHEMISTRY-OUTSIDE Routine 09/24/2023 documented in this encounter Results * (ABNORMAL) CHEMISTRY-OUTSIDE (09/24/2023) Not all results display below - see scan for full detail OUTSIDE LAB (SEE SCANNED REPORT) Comment:SEE SCAN - CBCD, PTI NR,BMP, HA1C, UA CREATININE-OUTSID E LAB 1.02 0.6 - 1.4 MG/DL OUTSIDE LAB (SEE SCANNED REPORT) EGFR-OUTSIDE LAB 71.1 ML/MIN OUT SIDE LAB (SEE SCANNED REPORT) POTASSIUM-OUTSIDE LAB 3.8 3.5 - 5.1 MMOL/L OUTSIDE LAB (SEE SCANNED REPORT) GLUCOSE-OUTSIDE LAB 120(A) 70 - 99 MG/DL OUTSIDE LAB (SEE SCANNED REPORT) HOURS FASTING OUTSID E LAB (SEE SCANNED REPORT) TRIGLYCERIDES-OUT SIDE LAB OUTSIDE LAB (SEE SCANNED REPORT) CHOLESTEROL-OUTSI DE LAB OUTSIDE LAB (SEE SCANNED REPORT) HDL-OUTSIDE LAB OUTS [facility] (SEE SCANNED REPORT) CHOL/HDL RATIO-OUTSIDE LAB OUTSIDE LA B (SEE SCANNED REPORT) LDL (CALCULATED)-OUTS [facility] LAB OUTSIDE LAB (SEE SCANNED REPORT) LDL (DIRECT MEASURE)-OUTSIDE LAB OUTSIDE LAB (SEE SCANNED REPORT) HEMOGLOBIN, Q7V-LIWSOZU LAB 7.0(A) 4.5 - 5.6 % OUTSIDE LAB (SEE SCANNED REPORT) PHOSPHORUS-OUTSID E LAB OUTSIDE LAB (SEE SCANNED REPORT) PTH-OUTSIDE LAB OUTS [facility] LAB (SEE SCANNED REPORT) MICROALBUMIN RATIO-OUTSIDE LAB OUTSIDE LA B (SEE SCANNED REPORT) PROTEIN, UA-OUTSIDE LAB OUTSIDE LAB (SEE SCANNED REPORT) HEMOGLOBIN-OUTSID E LAB 13.3(A) 14.0 - 18.0 G/DL OUTSIDE LAB (SEE SCANNED REPORT) 09/24/2023 Donald Isaac DO LABORATORY OUTSIDE LAB (SEE SCANNED REPORT) documented in this encounter Care Teams Life Sciences Manager Relationship Specialty Start Date End Date Fareed Nolen MD [address] [phone] PCP - General Family Medicine 11/14/21 documented as of this encounter
--- OUTSIDE RECORDS SUMMARY | 2023-10-01 05:26 | External Medical Summary | Summary of Care ---
Author Name Unknown Organization [facility] Address [address] [facility] [address] [address] Phone [phone] Care Team Providers Care Export Clerk Name Role Phone Fareed Nolen MD Primary Care Provider Encounter Details Date Type Department Care Team (Late st Contact Info) Description 09/24/2023 Result Scan Unspecified Department <No scans attached> Allergies Active Allergy Reactions Criticality Noted Date Comments Chlorhexidine Low 06/01/2021 Other reaction(s): RASH Penicillins 06/09/2002 thrush sore mouth Rash swelling Oxycodone-Acetaminophen Nausea/vomiting 011 documented as of this encounter (statuses as of 09/26/2023) Medications Medication Sig Dispensed Refills Start Date End Date Status Coenzyme Q10 100 MG Tablet Take 1 Tab by mouth daily. 30 Tab 5 03/18/2015 Active Caldwell-3 Fatty Acids (FISH OIL) 1000 MG Capsule [...] use of medications One daily. May use [id number] 100 Tab 3 10/04/2020 Active Venlafaxine HCl [...] 0.5 in AM will see psych at 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 04/03/2011 [...] 7:00 AM EDT Office Visit Family Practice, [place] [address] [phone] Fareed Nolen MD [address] [phone] 01/22/2024 7:40 AM EDT Office Visit Dermatology, [place] [address] [phone] aMmi Bermeo PA-C [address] [phone] 06/11/2024 9:20 AM EST Office Visit Neurology, [place] [address] [phone] Angie Barragan MD [address] [place] [address] Scheduled Procedures Name Priority Associated Diagnoses Date/Ti me COLONOSCOPY FLEXIBLE PROXIMA L DIAGNOSTIC Recall History of colonic polyps Health Maintenance Due Date Last Done Comments Zoster Vaccines (2 of 3) 12/15/2013 10/20/2013 COVID-19 Vaccine (2022-24 season) 2023 05/10/2022, 06/13/2021, 09/20/2020, Additional history [...] Procedure Name Priority Date/Time Associated Diagnosis Comments EKG SCANNED RESULT 09/24/2023 documented in this encounter Results * EKG SCANNED RESULT (09/24/2023) 09/24/2023 No Physician Data Unknown EKG documented in this encounter Care Teams Export Clerk Relationship Specialty Start Date End Date Fareed Nolen MD [address] [phone] PCP - General Family Medicine 11/14/21 documented as of this encounter
--- OUTSIDE RECORDS SUMMARY | 2023-10-01 05:26 | External Medical Summary | Summary of Care ---
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 Name Role Phone Fareed Nolen MD Primary Care Provider Reason for Visit * Reason Comments pre-op exam Encounter Details Date Type Department Care Team (Late st Contact Info) Description 09/21/2023 3:20 PM EST Office Visit [facility] [address] [facility] [place] [id number] Kaitlin Rudolph MD [address] [facility] [place] [place] [phone] Preoperative clearance*; DM type 2 nursing care encounter ([facility]); Cervical spondylosis; Dyslipidemia, goal LDL below 70; Type 2 diabetes mellitus with hemoglobin A1c goal of less than 7.5% ([facility]); HTN, GOAL BELOW 140/90; RBBB (right bundle branch block); SEAN (generalized anxiety disorder); Personal history of DVT (deep vein thrombosis) Allergies Active Allergy Reactions Criticality Noted Date Comments Chlorhexidine Low 06/01/2021 Other reaction(s): RASH Penicillins 06/09/2002 thrush sore mouth Rash swelling Oxycodone-Acetaminophen Nausea/vomiting 011 documented as of this encounter (statuses as of 09/27/2023) Medications Medication Sig Dispensed Refills Start Date End Date Status Coenzyme Q10 100 MG Tablet Take 1 Tab by mouth daily. 30 Tab 5 03/18/2015 Active Edgewood-3 Fatty Acids (FISH OIL) 1000 MG Capsule Take 1 Capsule by mouth in the morning. 0 Active zoster vac recomb adjuvanted (SHINGRIX) 50 MCG/0.5ML injectionIndication s:Need for vaccination for zoster Inject 0.5 mL into a large muscle now and repeat dose in 60 to 180 days 1 Each 1 02/24/2020 Active Additional Information Patient not taking.Reported on 06/06/2023 aspirin 81 MG chewable tabletIndications:T ype 2 diabetes mellitus with hemoglobin A1c goal of less than 7.0% (HCC) Take 1 Tab by mouth daily. with food. 100 Tab 5 02/24/2020 Active B-12 500 MCG Oral TabletIndications:E ncounter for long-term (current) use of medications One daily. May use [id number] 100 Tab 3 10/04/2020 Active Venlafaxine HCl ER 150 MG Oral Capsule Extended Release 24 Hour (Effexor XR) Take by mouth 1 Capsule in the morning. 90 Capsule 3 11/25/2021 Active Lisinopril-hydroCHL OROthiazide 20-12.5 MG Oral TabletIndications:H TN, goal to be determined TAKE ONE TABLET BY MOUTH EVERY MORNING & TAKE ONE-HALF TABLET BY MOUTH EVERY EVENING 135 Tablet 1 04/13/2023 4 Active Rosuvastatin Calcium 10 MG Oral Tablet (Crestor)Indication s:Dyslipidemia, goal LDL below 100 TAKE ONE TABLET BY MOUTH EVERY MORNING 90 Tablet 1 04/13/2023 Active Pregabalin 150 MG Oral Capsule (Lyrica)Indications :Painful leg and moving toes syndrome,Neuropathy ,Paresthesia TAKE ONE CAPSULE BY MOUTH EVERY MORNING [...] Active clonazePAM 0.25 MG Oral Tablet Disintegrating (KlonoPIN)Indicatio ns:Anxiety Dissolve 1 Tablet on tongue daily as needed for Anxiety. 30 Tablet 0 08/09/2023 Active Venlafaxine HCl ER 150 MG Oral Capsule Extended Release 24 Hour (Effexor XR) Take 1 capsule by mouth daily in the morning. 90 Capsule 1 08/15/2023 4 Discontinu ed(Patient preference /discontin uation) clonazePAM 0.5 MG Oral Tablet (KlonoPIN) Take 1 Tablet by mouth daily. 30 Tablet 5 08/29/2023 4 Discontinu ed(Patient preference /discontin uation) Venlafaxine HCl ER 150 MG Oral Capsule Extended Release 24 Hour (Effexor XR) Take 1 Capsule by mouth in the morning. 90 Capsule 1 08/29/2023 4 Discontinu ed(Patient preference /discontin uation) documented as of this encounter (statuses as of 09/27/2023) Active Problems Problem Noted Date Diagnosed Date [...] 0.5 in AM will see psych at [facility] Heart murmur, systolic 04/05/2016 Personal [...] as of this encounter (statuses as of 09/27/2023) Resolved Problems Problem Noted Date Diagnosed Date Resolved Date Major depressive disorder, r ecurrent episode, in partial remission 01/04/2016 07/25/2016 Heme positive stool 11/21/2012 07/27/19 18 Overview: 11/25/2012 bloodwork reveals no anemia or iron def. will repeat FOBT as guaiac might have been falsely + 11/21/2012 on exam non bloody but sign positive Preoperative cardiovascular examination 08/16/2011 10/02/2018 Overview: PSA Results: PSA(ng/mL) Aissatou Dt/Kentrell Resulted Value Status 07/26/17 9:12A 07/26/17 2.24 FINAL PSA SCREENING(ng/mL) Aissatou Dt/Kentrell Resulted Value Status 04/04/16 10:56A 04/05/16 2.07 FINAL 08/10/14 9:27A 08/10/14 1.81 FINAL 04/04/16 10:56A 04/05/16 2.07 FINAL 08/10/14 9:27A 08/10/14 1.81 FINAL 03/27/13 10:53A 03/27/13 1.45 FINAL 08/10/14 9:27A 08/10/14 1.81 FINAL 03/27/13 10:53A 03/27/13 1.45 FINAL 12/20/11 8:53A 12/20/11 1.63 FINAL Anticoagulation management encounter 04/03/2011 10/02/2018 residential current use of ant icoagulant therapy 04/03/2011 [...] as of this encounter (statuses as of 09/27/2023) Immunizations Name Administration Dates Next Due COVID-19 [...] on file documented as of this encounter Last Filed Vital Signs Vital Sign Reading Time Taken Comments Blood Pressure 142/74 09/21/2023 3:20 PM EST Pulse 96 09/21/2023 3:20 PM EST Temperature 36.2 C (97.1 F) 09/21/2023 3:20 PM ES T Respiratory Rate 16 09/21/2023 3:20 PM EST Oxygen Saturation 99% 09/21/2023 3:20 PM EST Inhaled Oxygen Concentration - - Weight 96.4 kg (212 lb 9.6 oz) 09/21/2023 3:20 P M EST Height - - Body Mass Index 32.33 03/15/2023 2:30 PM EDT documented in this encounter Patient Instructions * Patient Instructions* Jenn Zimmer LPN - 09/21/2023 3:24 PM EST Images from the original note were not included. Diabetes: Keeping Feet Healthy Inspect your feet every day for signs of a problem. Diabetes can damage nerves in your feet and cause neuropathy. This condition makes it hard for you to feel injuries or sore spots. Diabetes can also change blood flow, making it harder for small problems, like a blister, to heal properly. In fact, minor injuries can quickly become serious infections that send you to the hospital. Practice self-care to protect your feet and keep them healthy. Take Special Care Inspect your feet daily for problems such as redness, blisters, cracks, dry skin, or numbness. Use a mirror to see the bottoms of your feet. Or, ask for help. Manage your diabetes. Monitor and control your blood sugar. Take all your medications as prescribed. Avoid walking barefoot, even indoors. Wash your feet with warm water and mild soap. Dry well, especially between toes. Dont treat corns or calluses yourself. Talk to your doctor or [facility] (a doctor who specializes in foot care) if you need assistance trimming your toenails. Use moisturizing cream or lotion if you have dry skin, but dont use it between toes. Dont use heating pads on your feet. If you have neuropathy, you could get a burn and not feel it. Stop smoking. Smoking restricts blood flow and can make it harder for wounds to heal. Have Regular Checkups Foot problems can develop quickly. So be sure to follow your healthcare teams schedule for regular checkups. During office visits, take off your shoes and socks as soon as you get in the exam room. Ask your healthcare provider to examine your feet for problems. This will make it easier to find and treat small skin irritations before they get worse. Regular checkups can also help keep track of the blood flow and feeling in your feet. If you have neuropathy, you may need to have checkups more often. Wear Proper Footwear Wearing proper footwear is very important. If areas of your feet have been damaged by too much pressure, your healthcare provider may recommend changing your footwear. In some cases, avoiding high heels or tight work boots may be all thats needed. Or, your healthcare provider may recommend special shoes or custom inserts. These help protect your feet and keep existing irritations from getting worse. If you need special footwear, ask your healthcare provider if you qualify for [employer] diabetic shoe program. Make Sure Shoes and Socks Fit Any pair of shoes--new or old--should feel comfortable as soon as you put them on. There shouldnt be any rubbing when you walk. Wear the right shoe for any activity. For instance, a running shoe is designed to keep your feet injury-free while jogging. Buy shoes at the end of the day, when your feet are larger. Make sure they provide support without feeling too loose. Make sure your socks fit, t oo. Wear soft, seamless, well-padded socks for activity. Cotton or microfiber socks are best to help to absorb sweat. To protect your feet, avoid shoes that are open-toed or open-heeled. If you have questions about what kinds of shoes and socks are best, talk to your healthcare team. Get Regular Exercise Regular exercise improves blood flow in your feet. It also increases foot strength and flexibility.Gentle exercises, like walking or riding a stationary bicycle, are best. You can also do special foot exercises. Just be sure to talk with your healthcare provider before starting any exercise program. Also mention if any exercise causes pain, redness, or other signs of foot problems. Note: If you have any kind of break in the skin of your foot or ankle, keep the area clean. Then call your doctor--especially if the area doesnt appear to be healing. [phone] [employer], [address] [place] [address], [place] [address]. All rights reserved. This information is not intended as a substitute for professional medical care. Always follow your healthcare professional's instructions. Diabetic Retinopathy: Evaluating Your Eyes Diabetic retinopathy is a condition that happens when diabetes damages blood vessels in the rear ofthe eye. It can lead to vision loss. To help catch it early, have a complete dilated eye exam at least once a year. During the exam, the eye healthcare provider will review your medical history, examine your eyes, and check your vision. Women who are and have pre-existing type 1 or type 2 diabetes have an increased risk of retinopathy. Women with diabetes should have an eye exam before or in the first trimester. They should continue to be monitored every trimester and for 1 year after delivery, depending on the severity of the retinopathy. The retina is the light-sensitive part of the eye that allows you to see. High blood sugar can damage blood vessels of the retina and cause them to leak or bleed. This damage can lead to abnormal blood vessel growth. This condition is called diabetic retinopathy. You may not have symptoms early in the disease. Later, there may be floaters, blurred vision, or poor night vision. There may also be partial or complete vision loss. Early cases of diabetic retinopathy can be treated by carefully controlling blood sugar, blood pressure, and cholesterol. Surgery or laser treatments may help restore lost vision. Laser surgery can shrink abnormal blood vessels or close ones that are leaking. Medicines injected in the eye can help decrease swelling of the retina. Home care Take all medicines, including insulin or oral diabetic medicine, exactly as prescribed. Follow the diet advised by your healthcare provider. If you have high cholesterol, follow a low-fat, low-cholesterol diet. Monitor blood sugars as advised. Try to achieve your ideal weight. If you smoke, quit smoking. Tobacco use worsens the effect of diabetes on your blood vessels. If you have high blood pressure, consider buying an automatic blood pressure machine. These are available at most pharmacies. Use this to monitor your blood pressure. Report your blood pressure readings to your healthcare provider. Exercise regularly. Follow-up care Follow up with your healthcare provider, or as advised. You must have a complete eye exam at least once a year, more often if needed. Untreated diabetic retinopathy can lead to complete loss of vision. Occupational therapists can help you adapt to any vision loss you have, including learning techniques to safely administer insulin. When to seek medical advice Call your healthcare provider right away if any of these occur. Increasing blurriness or any sudden changes in your vision Sudden flashes of light inside your eye New floaters (small dots or strings that seem to be moving across your field of vision) Eye pain, redness, or discharge from your eyelid New dark spots appearing in your field of vision Halos around lights Dimness of vision Partial or complete loss of vision Women with diabetes should have a complete eye exam before becoming , or as soon as possible when they find out they are . Retinopathy sometimes worsens during . Your eye exam Your eye healthcare provider uses an eye chart and other tools to check your vision. Then he or sheexamines your eyes for signs of disease. You are given eye drops to widen (dilate) your pupils. Youmay have one or more of the following tests: Tonometry to measure fluid pressure inside the eye. Slit lamp exam to allow the healthcare provider to view the structures of your eye. Ultrasound to create an image of the eye using sound waves. Ultrasound may be used if blood is found in the clear gel that fills the eye (vitreous). Ocular coherence tomography (OCT) to create an image of the retina using light waves. This shows ifthere is fluid leaking into certain parts of the eye. It can also measure the thickness of the retina. Fluorescein angiography This test may be done to check the health of the inside lining of the eye (retina). It also checks the tiny blood vessels (capillaries) that carry blood to the retina. During the test: Photographs are taken of the retina. A dye is then injected into the bloodstream through the arm or hand. The dye travels to the capillaries in the eye. More photographs are taken of the retina. The dye causes the capillaries to stand out on the photographs. You may feel brief nausea during the procedure. For a few hours after the test, your skin, eyes, and urine may appear yellow. Talk with your healthcare provider for more information about this test. Date Last Reviewed: 12/22/201519991071-4224 [employer]. [address] [place] [address]. All rights reserved. This information is not intended as a substitute for professional medical care. Always follow your healthcare professional's instructions. documented in this encounter Progress Notes * Kaitlin Rudolph MD - 09/21/2023 3:33 PM EST Images from the original note were not included. Pre-Operative Medical Evaluation Procedure Information Type of Surgery: anterior cervical discectomy and fusion C3 to C5 Referring Physician / Surgeon: ortho/spine Date of procedure: 10/01/2023 Brief History of Present Illness: Patient feels ok, reports right eye irritation for 2 days, he was rubbing his eye prior. Right knee pain much improved, declines MRI. Right shoulder and arm pain improved, seen ortho. Review of Systems Constitutional: Negative for activity change, appetite change, chills, fatigue, fever and unexpected weight change. HENT: Negative for congestion, dental problem, ear pain, hearing loss, rhinorrhea, sore throat and trouble swallowing. Eyes: Negative for visual disturbance. Right eye irritated Respiratory: Negative for cough, shortness of breath and wheezing. Cardiovascular: Negative for chest pain, palpitations and leg swelling. Gastrointestinal: Negative for abdominal pain, blood in stool, constipation, diarrhea, nausea and vomiting. Endocrine: Negative for polyuria. Genitourinary: Negative for difficulty urinating, dysuria and hematuria. Musculoskeletal: Negative for arthralgias. Skin: Negative for rash. Allergic/Immunologic: Negative for environmental allergies and food allergies. Neurological: Positive for numbness. Negative for dizziness and headaches. Balance/walking issues Hematological: Negative for adenopathy. Psychiatric/Behavioral: Negative for dysphoric mood and sleep disturbance. The patient is not nervous/anxious. Medical History Problem List: Nocturia (10/04/2020) Gallbladder sludge (03/02/2020) Paresthesia of both lower extremities (10/04/2018) Status post lumbar spinal fusion (10/04/2018) RBBB (right bundle branch block) (11/15/2017) History of peptic ulcer disease (07/27/2017) Recurrent major depressive disorder, in full remission (HCC) (2016) Heart murmur, systolic (04/05/2016) Major depressive disorder, recurrent episode, in partial remission (HCC) (01/04/2016) Personal history of skin cancer (05/27/2015) Class 1 obesity due to excess calories with serious comorbidity and body mass index (BMI) of 33.0 to 33.9 in adult (10/20/2013) History of GI bleed (01/16/2013) Heme positive stool (11/21/2012) Microcytosis (08/16/2011) Preoperative cardiovascular examination (08/16/2011) CERVICAL DISC DISPLACMNT s/p corpectomy C6 Dr Gomez (06/2011) Personal history of venous thrombosis and embolism (04/03/2011) Anticoagulation management encounter (04/03/2011) long term current use of anticoagulant therapy (04/03/2011) Dyslipidemia, goal LDL below 70 (07/05/2009) HTN, GOAL BELOW 140/90 (06/10/2009) Trigger finger (11/10/2008) Displacement of lumbar intervertebral disc without myelopathy (2007) Personal history of malignant neoplasm of skin (05/12/2008) Type 2 diabetes mellitus with hemoglobin A1c goal of less than 7.5% ([facility]) (10/13/2005) Advance directive discussed with patient (02/24/2005) HYPERTENSION NOS PURE HYPERCHOLESTEROLEM Generalized anxiety disorder MDD (major depressive disorder), recurrent episode, moderate ([facility]) SEAN (generalized anxiety disorder) Current Medications Venlafaxine HCl ER 150 MG Oral Capsule Extended Release 24 Hour (Effexor XR), 150 mg, Oral, Daily(AM) Venlafaxine HCl ER 150 MG Oral Capsule Extended Release 24 Hour (Effexor XR), Take 1 capsule by mouth daily in the morning. clonazePAM 0.25 MG Oral Tablet Disintegrating (KlonoPIN), 0.25 mg, On Tongue, Daily PRN metFORMIN HCl ER 500 MG Oral Tablet Extended Release 24 Hour (Glucophage XR), TAKE TWO TABLETS BY MOUTH TWICE A DAY WITH MORNING & EVENING MEALS Pregabalin 150 MG Oral Capsule (Lyrica), TAKE ONE CAPSULE BY MOUTH EVERY MORNING & TAKE ONE CAPSULE BY MOUTH EVERY DAY BEFORE BEDTIME Lisinopril-hydroCHLOROthiazide 20-12.5 MG Oral Tablet, TAKE ONE TABLET BY MOUTH EVERY MORNING &TAKE ONE-HALF TABLET BY MOUTH EVERY EVENING Rosuvastatin Calcium 10 MG Oral Tablet (Crestor), TAKE ONE TABLET BY MOUTH EVERY MORNING Venlafaxine HCl ER 150 MG Oral Capsule Extended Release 24 Hour (Effexor XR), 150 mg, Oral, Daily(AM) B-12 500 MCG Oral Tablet, One daily. May use [id number] aspirin 81 MG chewable tablet, 81 mg, Oral, Daily(AM) Edgewood-3 Fatty Acids (FISH OIL) 1000 MG Capsule, 1,000 mg, Oral, Daily(AM) Coenzyme Q10 100 MG Tablet, 100 mg, Oral, Daily(AM) clonazePAM 0.5 MG Oral Tablet (KlonoPIN), 0.5 mg, Oral, Daily(Non-Specified) (Patient not taking: Reported on 09/21/2023) zoster vac recomb adjuvanted (SHINGRIX) 50 MCG/0.5ML injection, Inject 0.5 mL into a large muscle now and repeat dose in 60 to 180 days (Patient not taking: Reported on 06/06/2023) Allergies: Penicillins, Percocet [oxycodone-acetaminophen], and Chlorhexidine Past Medical History: has a past medical history of Anticoagulation management encounter (04/03/2011), Benign neoplasm of colon (01/16/13), Diverticulosis of colon (without mention of hemorrhage), Dyslipidemia, goal LDL below 160, SEAN (generalized anxiety disorder), Heme positive stool (11/21/2012), HTN, goal to be determined, Hyperlipidemia, MDD (major depressive disorder), recurrent episode, moderate (HCC), Other malignant neoplasm of skin of trunk, except scrotum, Panic disorder, RBBB (right bundle branch block) (11/15/2017), Severe obesity with body mass index (BMI) of 35.0 to 39.9 with serious comorbidity (HCC) (10/20/2013), Trigger finger (11/10/2008), and Upper extremity embolism (HCC) (04/03/2011). Past Surgical History: has a past surgical history that includes knee arthroscopy, diagnostic; remove pilonidal cyst, simple; carpal tunnel surgery (05/2006); carpal tunnel surgery (06/2006); colonoscopy (10/01/2007); lumbar spine fusion, post interbody (06/2008); Miscellaneous Order ([facility] Only) (03/14/2011); Colonoscopy, Diagnostic (Rectum) (01/16/2013); EGD, Flexible, Diagnostic (01/16/2013); spine surgery procedure nec; carpal tunnel surgery (Left, 11/16/2015); carpal tunnel surgery (Right, 12/14/2015); Colonoscopy, Diagnostic (Rectum) (N/A, 03/21/2018); Colonoscopy, Diagnostic (Rectum) (N/A, 03/21/2018); Colonoscopy, Diagnostic (Rectum) (N/A, 03/21/2023); and Colonoscopy, Diagnostic (Rectum) (N/A, 03/21/2023). Social History: reports that he has never smoked. He has never used smokeless tobacco. He reports current alcohol use. He reports that he does not use drugs. Family History: family history includes Heart Disorder in his father; Neurological Disorder in his mother; No KnownProblems in his son and son; No Past Hx in his sister; Other in an other family member. He was adopted. Anesthesia History Type of Anesthesia: General Endotracheal Anesthesia reaction: No History of surgical complications: no Personal history of venous thromboembolic disease: hx DVT Physical Exam Vitals: 09/21/23 1520 Temp: 36.2 C (97.1 F) Pulse: 96 Resp: 16 SpO2: 99% BP: 142/74 Physical Exam Constitutional: General: He is not in acute distress. Appearance: Normal appearance. HENT: Head: Normocephalic and atraumatic. Right Ear: Tympanic membrane, ear canal and external ear normal. Left Ear: Tympanic membrane, ear canal and external ear normal. Nose: Nose normal. Mouth/Throat: Mouth: Mucous membranes are moist. Pharynx: Oropharynx is clear. Eyes: Conjunctiva/sclera: Conjunctivae normal. Pupils: Pupils are equal, round, and reactive to light. Cardiovascular: Rate and Rhythm: Normal rate and regular rhythm. Pulses: Normal pulses. Pulmonary: Effort: Pulmonary effort is normal. Breath sounds: Normal breath sounds. Abdominal: General: Bowel sounds are normal. There is no distension. Palpations: Abdomen is soft. Tenderness: There is no abdominal tenderness. Musculoskeletal: Cervical back: Neck supple. Lumbar back: Decreased range of motion. Right lower leg: No edema. Left lower leg: No edema. Skin: General: Skin is warm and dry. Findings: No rash. Neurological: Mental Status: He is alert and oriented to person, place, and time. Psychiatric: Mood and Affect: Mood normal. Behavior: Behavior normal. Labs reviewed and are significant for: none EKG by my review is significant for: none Preop testing is scheduled next week at [facility] Surgical Risk Scoring Revised Cardiac Risk Index (RCRI) High-risk type of surgery (examples include vascular and any open intraperitoneal or intrathoracic procedures): 0=No History of ischemic heart disease (history of myocardial infarction or positive exercise test, current compliant of chest pain considered to be secondary to myocardia ischemia, use of nitrate therapy, or ECG with pathological Q waves; do not count prior coronary revascularization procedure unless one of the other criteria for ischemic heart disease is present): 0=No History of heart failure: 0=No History of cerebrovascular disease: 0=No Diabetes mellitus requiring treatment with insulin: 0=No Preoperative serum creatinine >2.0 mg/dL (177 micromol/L): 0=No Pt has revised cardiac index score of: No Risk Factors- 0.4% (95% CI: 0.1-0.8) Screening for Obstructive Sleep Apnea (STOP-BANG) Do you Snore loudly? 0=No Do you often feel Tired, Fatigued, or Sleep? 0=No Has anyone Observed you Stop Breathing or Choking/Gasping during sleep? 0=No Do you have or are you being treated for High Blood Pressure? 1=Yes BMI over 35? 0=No Age older than 50? 1=Yes Neck size large? (For males - 17 inches or larger, For females - 16 inches or larger) 0=No Male? 1=Yes Score 0-2:low risk SHIRA, 3-4: intermediate risk of SHIRA, 5-8: high risk SHIRA 3 BMI Readings from Last 3 Encounters: 09/21/23 32.33 kg/m 08/09/23 32.74 kg/m 06/06/23 32.31 kg/m Assessment and Plan 1. DM type 2 nursing care encounter (HCC) - DIABETES FOOT EXAM - TELEMEDICINE DIABETIC EYE 2. Preoperative clearance - patient is cleared for surgery pending labs/EKG - preop tests will be done next week at [facility] Addendum 09/25/2023: labs and chest Xray stable. Abnormal EKG, cardiology referral placed. - patient may proceed with surgery after cardiology clearance 3. Cervical spondylosis - for surgery 4. Dyslipidemia, goal LDL below 70 5. Type 2 diabetes mellitus with hemoglobin A1c goal of less than 7.5% ([facility]) - last HbA1c 6.8 6. HTN, GOAL BELOW 140/90 - 142/74 today, on medications 7. RBBB (right bundle branch block) 8. SEAN (generalized anxiety disorder) - stable 9. Personal history of DVT (deep vein thrombosis) - in 2010 Functional Assessment They are able to walk up a flight of stairs, walk two blocks at a moderate pace, do heavy house work like vacuuming, and grocery shop. The patient's functional status is good (greater than 4 METS). 1 MET: 4 METs: 4-10 METs: Can take care of self, such as eat, dress or use the toilet. Can walk to block or go up a flight of steps. Can do heavy house work. Surgical Risk Assessment Patient is low medical risk for the listed procedure. Medication adjustments: no Additional consults or testing: Scheduled for preop tests next week * Jenn Zimmer LPN - 09/21/2023 3:23 PM EST Images from the original note were not included. DM Foot Exam completed today. Provider aware. Jenn Zimmer LPN Socks and Shoes Removed for Annual Diabetic Foot Screening RIGHT FOOT: No Reddened, Cracking, Or Open Areas Noted. RIGHT Dorsalis Pedis Pulse: Palpable RIGHT Posterior Tibial Pulse: Palpable RIGHT Monofilament:Patient reports difficulty feeling monofilament at Great toe- plantar surface, Third toe-plantar surface, Ball of Foot-base of great toe, Ball of Foot-base of 3rd toe, and Ball of Foot-base of little toe LEFT FOOT: No Reddened, Cracking or Open Areas Noted. LEFT Dorsalis Pedis Pulse: Palpable LEFT Posterior Tibial Pulse: Unable to locate LEFT Monofilament:Patient reports difficulty feeling monofilament at Third toe- plantar surface, Ball of Foot-base of great toe, and Ball of Foot-base of little toe Do you need diabetic shoes: No The importance of having a yearly diabetic eye exam has been discussed with patient. Order and/or Referral placed along with patient instructions. Provider made aware. Jenn Zimmer LPN The importance of having a yearly diabetic eye exam has been discussed with patient. Order and/or Referral placed along with patient instructions. Provider made aware. Jenn Zimmer LPN Diabetic Retinopathy: Evaluating Your Eyes Diabetic retinopathy is a condition that happens when diabetes damages blood vessels in the rear ofthe eye. It can lead to vision loss. To help catch it early, have a complete dilated eye exam at least once a year. During the exam, the eye healthcare provider will review your medical history, examine your eyes, and check your vision. Women who are and have pre-existing type 1 or type 2 diabetes have an increased risk of retinopathy. Women with diabetes should have an eye exam before or in the first trimester. They should continue to be monitored every trimester and for 1 year after delivery, depending on the severity of the retinopathy. The retina is the light-sensitive part of the eye that allows you to see. High blood sugar can damage blood vessels of the retina and cause them to leak or bleed. This damage can lead to abnormal blood vessel growth. This condition is called diabetic retinopathy. You may not have symptoms early in the disease. Later, there may be floaters, blurred vision, or poor night vision. There may also be partial or complete vision loss. Early cases of diabetic retinopathy can be treated by carefully controlling blood sugar, blood pressure, and cholesterol. Surgery or laser treatments may help restore lost vision. Laser surgery can shrink abnormal blood vessels or close ones that are leaking. Medicines injected in the eye can help decrease swelling of the retina. Home care Take all medicines, including insulin or oral diabetic medicine, exactly as prescribed. Follow the diet advised by your healthcare provider. If you have high cholesterol, follow a low-fat, low-cholesterol diet. Monitor blood sugars as advised. Try to achieve your ideal weight. If you smoke, quit smoking. Tobacco use worsens the effect of diabetes on your blood vessels. If you have high blood pressure, consider buying an automatic blood pressure machine. These are available at most pharmacies. Use this to monitor your blood pressure. Report your blood pressure readings to your healthcare provider. Exercise regularly. Follow-up care Follow up with your healthcare provider, or as advised. You must have a complete eye exam at least once a year, more often if needed. Untreated diabetic retinopathy can lead to complete loss of vision. Occupational therapists can help you adapt to any vision loss you have, including learning techniques to safely administer insulin. When to seek medical advice Call your healthcare provider right away if any of these occur. Increasing blurriness or any sudden changes in your vision Sudden flashes of light inside your eye New floaters (small dots or strings that seem to be moving across your field of vision) Eye pain, redness, or discharge from your eyelid New dark spots appearing in your field of vision Halos around lights Dimness of vision Partial or complete loss of vision Women with diabetes should have a complete eye exam before becoming , or as soon as possible when they find out they are . Retinopathy sometimes worsens during . Your eye exam Your eye healthcare provider uses an eye chart and other tools to check your vision. Then he or sheexamines your eyes for signs of disease. You are given eye drops to widen (dilate) your pupils. Youmay have one or more of the following tests: Tonometry to measure fluid pressure inside the eye. Slit lamp exam to allow the healthcare provider to view the structures of your eye. Ultrasound to create an image of the eye using sound waves. Ultrasound may be used if blood is found in the clear gel that fills the eye (vitreous). Ocular coherence tomography (OCT) to create an image of the retina using light waves. This shows ifthere is fluid leaking into certain parts of the eye. It can also measure the thickness of the retina. Fluorescein angiography This test may be done to check the health of the inside lining of the eye (retina). It also checks the tiny blood vessels (capillaries) that carry blood to the retina. During the test: Photographs are taken of the retina. A dye is then injected into the bloodstream through the arm or hand. The dye travels to the capillaries in the eye. More photographs are taken of the retina. The dye causes the capillaries to stand out on the photographs. You may feel brief nausea during the procedure. For a few hours after the test, your skin, eyes, and urine may appear yellow. Talk with your healthcare provider for more information about this test. Date Last Reviewed: 12/22/201519993867-9058 [employer]. [address] [place] [address], [place] [address]. All rights reserved. This information is not intended as a substitute for professional medical care. Always follow your healthcare professional's instructions. documented in this encounter Nursing Notes * Jenn Zimmer LPN - 09/21/2023 3:18 PM EST Chief Complaint Patient presents with pre-op exam documented in this encounter Plan of Treatment Upcoming Encounters Date Type Department Care Team (Late st Contact Info) Description 11/28/2023 7:00 AM EDT Office Visit Family [facility] [place] [facility] [phone] Fareed Nolen MD [address] [facility] [place] [phone] 01/22/2024 7:40 AM EDT Office [facility] [place] [address] [place] [phone] Mami Bermeo PA-C [address] [place] [address] [place] [address] 06/11/2024 9:20 AM EST Office Visit Neurology, [place] [address] [phone] Angie Barragan MD [address] [place] [address], [place] [address] Scheduled Procedures Name Priority Associated Diagnoses Date/Ti me COLONOSCOPY FLEXIBLE PROXIMA L DIAGNOSTIC Recall History of colonic polyps Health Maintenance Due Date Last Done Comments Zoster Vaccines (2 of 3) 12/15/2013 10/20/2013 COVID-19 Vaccine ( season) 2023 05/10/2022, 06/13/2021, 09/20/2020, Additional history [...] Procedure Name Priority Date/Time Associated Diagnosis Comments TELEMEDICINE DIABETIC EYE Routine 09/21/2023 DM type 2 nursing care encounter (HCC) documented in this encounter Results * TELEMEDICINE DIABETIC EYE (09/21/2023) 09/21/2023 Kaitlin Rudolph MD DIGITAL PHOT OGRAPHY documented in this encounter Visit Diagnoses Diagnosis Preoperative clearance- Primary Preoperative examination, unspecified DM type 2 nursing care encounter (HCC) Type II or unspecified type diabetes mellitus without mention of complication, not stated as uncontrolled Cervical spondylosis Cervical spondylosis without myelopathy Dyslipidemia, goal LDL below 70 Other and unspecified hyperlipidemia Type 2 diabetes mellitus with hemoglobin A1c goal of less than 7.5% ([facility]) HTN, GOAL BELOW 140/90 Unspecified essential hypertension RBBB (right bundle branch block) Right bundle branch block SEAN (generalized anxiety disorder) Generalized anxiety disorder Personal history of DVT (deep vein thrombosis) Personal history of venous thrombosis and embolism documented in this encounter Care Teams Welding Equipment Repairer Supervisor Relationship Specialty Start Date End Date Fareed Nolen MD [address] [address] PCP - General Family Medicine 11/14/21 documented as of this encounter
--- OUTSIDE RECORDS SUMMARY | 2023-10-01 05:26 | External Medical Summary | Summary of Care ---
Author Name Unknown Organization [facility] Address [address] [address] Phone [phone] Care Team Providers Care Douper Name Role Phone Fareed Nolen MD Primary Care Provider Reason for Referral * Evaluate & Treat - Unlimited Visits (Within 3 days (urgent)) - Authorized Specialty Diagnoses / Procedures Referred By Contact Referred To Contact Cardiovascular Medicine / Cardiology Diagnoses Abnormal EKG Preoperative clearance Kaitlin Rudolph MD [address] [id number] Referral ID Status Reason Start Date Expiration Date Visits Requested Visits Authorized [id number] Authorized Specialty Services Required 09/25/[phone] Question Answer Referral Priority Within 3 days (urgent) Where should this appointment be scheduled? [facility] To which of the following clinics are you referring your patient? General Cardiology Clinic Comments Needs preop clearance (surgery 10/01/23). Abnormal EKG Reason for Visit * Reason Onset Date Comments Advice 09/24/202309/24 Encounter Details Date Type Department Care Team (Late st Contact Info) Description 09/24[facility]2023 [facility] [address] [phone] Kaitlin Rudolph MD [address] [phone] Advice (09/24) Allergies Active Allergy Reactions Criticality Noted Date Comments Chlorhexidine Low 06/01/2021 Other reaction(s): RASH Penicillins 06/09/2002 thrush sore mouth Rash swelling Oxycodone-Acetaminophen Nausea/vomiting 011 documented as of this encounter (statuses as of 09/27/2023) Medications Medication Sig Dispensed Refills Start Date End Date Status Coenzyme Q10 100 MG Tablet Take 1 Tab by mouth daily. 30 Tab 5 03/18/2015 Active Watson-3 Fatty Acids (FISH OIL) 1000 MG Capsule Take 1 Capsule by mouth in the morning. 0 Active zoster vac recomb adjuvanted (SHINGRIX) 50 MCG/0.5ML injectionIndications :Need for vaccination for zoster Inject 0.5 mL into a large muscle now and repeat dose in 60 to 180 days 1 Each 1 02/24/2020 Active aspirin 81 MG chewable tabletIndications:Ty pe 2 diabetes mellitus with hemoglobin A1c goal of less than 7.0% (HCC) Take 1 Tab by mouth daily. with food. 100 Tab 5 02/24/2020 Active B-12 500 MCG Oral TabletIndications:En counter for long-term (current) use of medications One daily. May use glpq-[id number]-[id number] er 100 Tab 3 10/04/2020 Active Venlafaxine HCl [...] the morning. 90 Capsule 1 08/15/2023 4 Discontinue d(Patient preference/ discontinua tion) clonazePAM 0.5 MG Oral Tablet (KlonoPIN) Take 1 Tablet by mouth daily. 30 Tablet 5 08/29/2023 4 Discontinue d(Patient preference/ discontinua tion) Venlafaxine HCl ER 150 MG Oral Capsule Extended Release 24 Hour (Effexor XR) Take 1 Capsule by mouth in the morning. 90 Capsule 1 08/29/2023 4 Discontinue d(Patient preference/ discontinua tion) documented as of this encounter (statuses as [...] 0.5 in AM will see psych at [facility] Heart murmur, systolic 04/05/2016 Personal [...] 1.63 FINAL Anticoagulation management encounter 04/03/2011 10/02/2018 terminologist current use of ant icoagulant therapy 04/03/2011 [...] on file documented as of this encounter Miscellaneous Notes * Telephone Encounter - Kaitlin Rudolph MD - 09/27/2023 3:19 PM EST Patient is cleared by cardiology, please fax cardiology note to Jennifer Neely * Telephone Encounter - Citlali Paredes OSA - 09/26/2023 10:56 AM EST Contacted pt, scheduled appt for 09/27/23 in [place]. Pt did not want to r/s surgery and is willing to drive. * Telephone Encounter - Sandee Quijano OSA - 09/25/2023 5:13 PM EST Urgent Cardiology referral for pre-auth, no openings. Please assist. Thanks! * Telephone Encounter - Jenn Zimmer LPN - 09/25/2023 5:11 PM EST Patient has been informed of below message and verbalized understanding. * Telephone Encounter - Kaitlin Rudolph MD - 09/25/2023 4:50 PM EST Results reviewed. Labs and Chest Xray stable. Abnormal EKG 09/24/2023 (RBBB, left anterior fascicular block, old infarct) Patient is asymptomatic. No significant change from prior EKG (2021) Cardiology referral for clearance placed (urgent, as surgery scheduled for 10/01/2023) * Telephone Encounter - Pauline Figueroa LPN - 09/25/2023 3:56 PM EST Fax received by vest front presser in the meantime, Jazmyne needs Dr. Rudolph to take a closer look at the EKG as it was slightly abnormal. Asking if any further evaluations need to be done. Pt is to have procedure done on 09/30, saw Dr. Rudolph for pre-op exam on 10/01/23. Records placed on Dr. Rudolph's desk. * Telephone Encounter - Pauline Figueroa LPN - 09/25/2023 3:52 PM EST Jazmyne, a PA with the anesthesiology dept at [facility] called asked if records were received, informed that records were not received as of yet, she asked for a fax number directly to [facility], given to Jazmyne. * Telephone Encounter - Sandee Quijano OSA - 09/25/2023 3:47 PM EST Spoke to [facility] again ([phone]). They advised that fax was sent just after 10am today. Fax located in [facility]. Placed on Dr. Rudolph's desk. * Telephone Encounter - Kaitlin Rudolph MD - 09/25/2023 3:33 PM EST Spoke with the patient, he had labs/EKG/Chest xray done yesterday, please get reports. * Telephone Encounter - Sandee Quijano OSA - 09/25/2023 9:33 AM EST Spoke to [place] [facility] who advised that they will look into this and fax them to me. * Telephone Encounter - Kaitlin Rudolph MD - 09/24/2023 12:52 PM EST Patient is scheduled for preop tests at [facility] 09/24/23. Please get labs, EKG, CXR results when available and place it on my desk documented in this encounter Plan of Treatment Upcoming Encounters Date Type Department Care Team (Late st Contact Info) Description 11/28/2023 7:00 AM EDT Office Visit Family [facility], [place] [address] [phone] Fareed Nolen [facility] [address] [facility] [address] 01/22/2024 7:40 AM EDT Office Visit Dermatology, [place] [address] [place] [address] Mami Bermeo PA-C [address] [place] [address] 06/11/2024 9:20 AM EST Office Visit Neurology, [place] [address] [phone] Angie Barragan MD [address] [place] [address] Scheduled Procedures Name Priority Associated Diagnoses Date/Ti me COLONOSCOPY FLEXIBLE PROXIMA L DIAGNOSTIC Recall History of colonic polyps Scheduled Referrals Name Type Priority Associated Diagnoses Orde r Schedule CARDIOLOGY REFERRAL OP Referral Within 3 days (urgent) Abnormal EKG Preoperative clearance Ordered: 09/25/2023 Health Maintenance Due Date Last Done Comments [...] Not on filedocumented as of this encounter Visit Diagnoses Diagnosis Abnormal EKG- Primary Nonspecific abnormal electrocardiogram (ECG) (EKG) Preoperative clearance Preoperative examination, unspecified documented in this encounter Care Teams Douper Relationship Specialty Start Date End Date Fareed Nolen MD [address] [phone] PCP - General Family Medicine 11/14/21 documented as of this encounter
--- OUTSIDE RECORDS SUMMARY | 2023-10-01 05:26 | External Medical Summary | Summary of Care ---
Author Name Unknown Organization [facility] Address [address] [place] [address] Phone [phone] Care Team Providers Care Cream Ripener Name Role Phone Fareed Nolen MD Primary Care Provider Reason for Visit * Reason Comments NEW PATIENT Pre-op Clearance Pre op for spine reji nevin on 10/01/23 * Evaluate & Treat - Unlimited Visits (Within 3 days (urgent)) - Authorized Specialty Diagnoses / Procedures Referred By Contact Referred To Contact Cardiovascular Medicine / Cardiology Diagnoses Abnormal EKG Preoperative clearance Kaitlin Rudolph [facility] [address] Referral ID Status Reason Start Date Expiration Date Visits Requested Visits Authorized [id number] Authorized Specialty Services Required 09/25/[phone] Encounter Details Date Type Department Care Team (Latest Contact Info) Description 09/27/2023 1:00 PM EST Office Visit Cardiovascular Services [facility] Sheikh [address] [phone] Letty Smith MD [address] [place] [address] Pre-operative cardiovascular examination*; Dyslipidemia, goal LDL below 70; Type 2 diabetes mellitus with hemoglobin A1c goal of less than 7.5% (HCC); HTN, GOAL BELOW 140/90 Allergies Active Allergy Reactions Criticality Noted Date Comments Chlorhexidine Low 06/01/2021 Other reaction(s): RASH Penicillins 06/09/2002 thrush sore mouth Rash swelling Oxycodone-Acetaminophen Nausea/vomiting 011 documented as of this encounter (statuses as of 09/27/2023) Medications Medication Sig Dispensed Refills Start Date End Date Status Coenzyme Q10 100 MG Tablet Take 1 Tab by mouth daily. 30 Tab 5 03/18/2015 Active [place]-3 Fatty Acids (FISH OIL) 1000 MG Capsule [...] use of medications One daily. May use uiwc-sfr-srieh er 100 Tab 3 10/04/2020 Active Venlafaxine [...] 0.5 in AM will see psych at [facility] Heart murmur, systolic 04/05/2016 Personal [...] by dr Chicas in the fall of 2016 L5S1 was getting slowly worse HNP L4-L5 and severe spinal stenosis L4-L5 Fusion Jun 2008 Type 2 diabetes mellitus wit h hemoglobin A1c goal of less than 7.5% 10/13/2005 Overview: Glucose Results: GLUCOSE(mg/dL) Aissatou Dt/Tm Resulted Value Status 10/30/11 8:25A 10/30/11 156* FINAL 08/11/11 8:23A 08/11/11 128* FINAL 4/19/11 8:10A 11/08/10 114 FINAL Hemoglobin AIC Results: [...] 1.63 FINAL Anticoagulation management encounter 04/03/2011 10/02/2018 terminal manager current use of ant icoagulant therapy 04/03/2011 [...] Types Packs/Day Years Used Date Smoking Tobacco: Former Cigarettes 0.5 5 Q uit: 07/24/1969 Pipe Quit: 07/24/18 72 Smokeless Tobacco: Never Comments:I quit over 50 year s ago Alcohol Use Standard Drinks/Week Comments Not Currently 1 (1 standard drink = 0.6 oz pure alcohol) Seldom, sometimes with dinner out. PHQ-2 Answer Date Recorded PHQ Adult Total [...] Sign Reading Time Taken Comments Blood Pressure 132/78 09/27/2023 12:57 PM EST Pulse 82 09/27/2023 12:57 PM EST Temperature - - Respiratory Rate - - Oxygen Saturation 97% 09/27/2023 12:57 PM EST Inhaled Oxygen Concentration - - Weight 96 kg (211 lb 11.2 oz) 09/27/2023 12:57 P M EST Height - - Body Mass Index 32.19 03/15/2023 2:30 PM EDT documented in this encounter Progress Notes * Letty Smith MD - 09/27/2023 1:00 PM EST Cardiology Outpatient Consultation Saji Cruz is a 78 year old male referred by Fareed Nolen MD who is seen in consultation forpre-op evaluation. HPI: Patient scheduled for anterior cervical discectomy and fusion C3 to C5 Referred for an abnormal ECG which shows sinus rhythm with RBBB and LAHB with poor precordial R wave progression suggestive of lateral infarct. Findings on ECG are not acute and were present on ECG of 06/04/2022. Patient has no prior h/o cardiovascular disease. He is physically active. Walks about half a mile everyday and can negotiate 2 flights of stairs without any difficulty. There is no report of chest pain, dyspnea, palpitations, presyncope or syncope. Latest Reference Range & Units 03/29/23 11:44 Triglycerides <=174 mg/dL 144 Cholesterol <200 mg/dL 181 Non-HDL Cholesterol <=159 mg/dL 125 HDL Cholesterol >39 mg/dL 56 LDL Cholesterol <=129 mg/dL 96 A1C 7 Past Medical History: Diagnosis Date Anticoagulation management encounter 04/03/2011 Benign neoplasm of colon 01/16/13 adenomatous polyp, repeat 5 yrs Diverticulosis of colon (without mention of hemorrhage) sigmoid colon Dyslipidemia, goal LDL below 160 SEAN (generalized anxiety disorder) with secondary depression Heme positive stool 11/21/2012 11/25/2012 bloodwork reveals no anemia or iron def. will repeat FOBT as guaiac might have been falsely + 11/21/2012 on exam non bloody but sign positive HTN, goal to be determined Hyperlipidemia MDD (major depressive disorder), recurrent episode, moderate (HCC) Other malignant neoplasm of skin of trunk, except scrotum Panic disorder RBBB (right bundle branch block) 11/15/2017 Severe obesity with body mass index (BMI) of 35.0 to 39.9 with serious comorbidity (HCC) 10/20/2013 07/27/2017 +7 lbs 04/05/2016 lost 12 lbs ICD-10 update of inactive diagnosis Trigger finger 11/10/2008 07/27/2017 resolved Right Ring Finger Upper extremity embolism (HCC) 04/03/2011 Patient Active Problem List Diagnosis Code Advance directive discussed with patient Z71.89 Type 2 diabetes mellitus with hemoglobin A1c goal of less than 7.5% (HCC) E11.9 Displacement of lumbar intervertebral disc without myelopathy M51.26 HTN, GOAL BELOW 140/90 I10 Dyslipidemia, goal LDL below 70 E78.5 CERVICAL DISC DISPLACMNT s/p corpectomy C6 Dr Gomez M50.20 Personal history of venous thrombosis and embolism Z86.718 Microcytosis R71.8 History of GI bleed Z87.19 Class 1 obesity due to excess calories with serious comorbidity and body mass index (BMI) of 33.0 to 33.9 in adult E66.09, Z68.33 SEAN (generalized anxiety disorder) F41.1 Personal history of skin cancer Z85.828 Heart murmur, systolic R01.1 Recurrent major depressive disorder, in full remission ([facility]) F33.42 History of peptic ulcer disease Z87.11 RBBB (right bundle branch block) I45.10 Paresthesia of both lower extremities R20.2 Status post lumbar spinal fusion Z98.1 Gallbladder sludge K82.8 Nocturia R35.1 Past Surgical History: Procedure Laterality Date CARPAL TUNNEL SURGERY 05/2006 Right CARPAL TUNNEL SURGERY 06/2006 Left CARPAL TUNNEL SURGERY Left 11/16/2015 NEUROPLASTY MEDIAN NERVE AT CARPAL TUNNEL performed by August Martines MD at [facility] CARPAL TUNNEL SURGERY Right 12/14/2015 NEUROPLASTY MEDIAN NERVE AT CARPAL TUNNEL performed by August Martines MD at [facility] COLONOSCOPY 10/01/2007 Diverticulosis. Repeat in 10 years. COLONOSCOPY, DIAGNOSTIC (RECTUM) 01/16/2013 adenomatous polyp, diverticulosis, repeat 5 yrs/COLONOSCOPY FLEXIBLE PROXIMAL DIAGNOSTIC performed by Carlitos Mills MD at [facility] COLONOSCOPY, DIAGNOSTIC (RECTUM) N/A 03/21/2018 diverticulosis sigmoid colon/non-bleeding internal hemorrhoids/recall 5 years/Colonoscopy COLONOSCOPY, DIAGNOSTIC (RECTUM) N/A 03/21/2018 COLONOSCOPY FLEXIBLE PROXIMAL DIAGNOSTIC performed by Shanon Bell MD at [facility] COLONOSCOPY, DIAGNOSTIC (RECTUM) N/A 03/21/2023 mild diverticulosis/hemorrhoids/biopsies show hyperplastic polyps/recall 5 years/Colonoscopy COLONOSCOPY, DIAGNOSTIC (RECTUM) N/A 03/21/2023 COLONOSCOPY FLEXIBLE PROXIMAL DIAGNOSTIC performed by Jojo Salazar DO at [facility] EGD, FLEXIBLE, DIAGNOSTIC 01/16/2013 normal bx, non-bleeding erosive gastropathy, duodenal erosions/UPPER GI ENDOSCOPY DIAGNOSTIC performed by Carlitos Mills MD at [facility] KNEE ARTHROSCOPY, DIAGNOSTIC Knee Arthroscopy LUMBAR SPINE FUSION, POST INTERBODY 06/2008 Lumbar Spine Fusion ,Post Interbody MISCELLANEOUS ORDER ([facility] ONLY) 03/14/2011 c 6 corpectomy @ [facility] with Dr. Gomez. REMOVE PILONIDAL CYST, SIMPLE SPINE SURGERY PROCEDURE NEC Neck and back surgery Family History Adopted: Yes Problem Relation Age of Onset Neurological Disorder Mother subarach. hemorrage Other (Other) Other pt denies fam hx of melanoma, skin ca or other skin diseases. But pt was adopted as per psych I have reviewed of 11/2019 psych note Heart Disorder Father ETOH related trauma No Past Hx Sister No Known Problems Son No Known Problems Son Social History Tobacco Use Smoking status: Never Smokeless tobacco: Never Vaping Use Vaping Use: Never used Substance Use Topics Alcohol use: Yes Comment: very rare glass of wine Drug use: No Review of patient's allergies indicates: Allergen Reactions Penicillins thrush sore mouth Rash swelling Percocet [Oxycodone-Acetaminophen] Nausea/vomiting Chlorhexidine Other reaction(s): RASH Current Outpatient Medications Medication Sig Dispense Refill Coenzyme Q10 100 MG Tablet Take 1 Tab by mouth daily. 30 Tab 5 [place]-3 Fatty Acids (FISH OIL) 1000 MG Capsule Take 1 Capsule by mouth in the morning. zoster vac recomb adjuvanted (SHINGRIX) 50 MCG/0.5ML injection Inject 0.5 mL into a large muscle now and repeat dose in 60 to 180 days 1 Each 1 aspirin 81 MG chewable tablet Take 1 Tab by mouth daily. with food. 100 Tab 5 B-12 500 MCG Oral Tablet One daily. May use djog-msu-dxbtjop 100 Tab 3 Venlafaxine HCl ER 150 MG Oral Capsule Extended Release 24 Hour (Effexor XR) Take by mouth 1 Capsule in the morning. 90 Capsule 3 Lisinopril-hydroCHLOROthiazide 20-12.5 MG Oral Tablet TAKE ONE TABLET BY MOUTH EVERY MORNING & TAKE ONE-HALF TABLET BY MOUTH EVERY EVENING 135 Tablet 1 Rosuvastatin Calcium 10 MG Oral Tablet (Crestor) TAKE ONE TABLET BY MOUTH EVERY MORNING 90 Tablet 1 Pregabalin 150 MG Oral Capsule (Lyrica) TAKE ONE CAPSULE BY MOUTH EVERY MORNING & TAKE ONE CAPSULE BY MOUTH EVERY DAY BEFORE BEDTIME 60 Capsule 5 metFORMIN HCl ER 500 MG Oral Tablet Extended Release 24 Hour (Glucophage XR) TAKE TWO TABLETS BY MOUTH TWICE A DAY WITH MORNING & EVENING MEALS 360 Tablet 3 clonazePAM 0.25 MG Oral Tablet Disintegrating (KlonoPIN) Dissolve 1 Tablet on tongue daily as needed for Anxiety. 30 Tablet 0 No current facility-administered medications for this visit. ROS: Constitutional: (-) fever chills sweats or weight loss Eyes: (-) negative, no amaurosis fugax, pain, blurred vision, or redness ENT: (-) headaches Cardiovascular: (-) negative: no chest pain, dyspnea, syncope, or palpitations Pulmonary: (-) negative: no cough, wheezing, or shortness of breath Abdominal/GI: (-) negative: no pain, heartburn, dysphagia, bleeding, change in bowel habits, nauseaor vomiting Musculoskeletal: (+) cervical spine and lumbar spine disease Neurology: (+) paresthesias in his hand Psychiatry: (-) negative: no depression or anxiety PHYSICAL EXAMINATION Blood pressure 132/78, pulse 82, weight 96 kg (211 lb 11.2 oz), SpO2 97%. Constitutional: no acute distress HEENT: normal: normocephalic, atraumatic; no masses, tenderness, or adenopathy Eyes: sclera and conjunctiva normal Neck: no thyromegaly, JVP normal, normal carotid pulses without bruits CV: normal rate and rhythm, no murmur, gallops or rub Chest: normal respiratory effort, lungs clear to auscultation and percussion Abdomen: normal: soft, bowel sounds normal, no masses, tenderness or organomegaly Extremities: no edema, no clubbing, no cyanosis Neuro: alert, oriented to person, place, and time Psych: normal mood and affect Laboratory Data Review: Labs as noted above EKG as noted above Impression: Pre operative assessment: Patient is here for a pre operative cardiac risk assessment prior to cervical spine surgery on account of an abnormal ECG. ECG shows sinus rhythm with RBBB and LAFB and poorlateral R wave progression. These changes are chronic and unchanged from ECG on 06/04/2022. Other than ECG abnormality he has no known cardiovascular disease. He is physically active with no associated symptoms. NYHA functional class I; CCVS angina score of 0. Exercise tolerance easily exceeds 5 mets Hyperlipidemia controlled on statin. Continue rosuvastatin HTN: controlled on lisinopril-HCTZ DM 2 acceptable control Plan: Proceed with cervical spine surgery under [place] without further cardiovascular testing Current medical program is good which he was advised to maintain He wishes to follow up in cardiology. I have scheduled him for a follow up visit in 1 year Letty Smith MD Cardiovascular Services [facility] [address] [facility] [phone] 09/27/2023 documented in this encounter Plan of Treatment Upcoming Encounters Date Type Department Care Team (Late st Contact Info) Description 11/28/2023 7:00 AM EDT Office Visit Family [facility], [place] [address] [phone] Fareed Nolen MD [address] [phone] 01/22/2024 7:40 AM EDT Office [place] [facility] [place] [address] [address] Mami Bermeo PA-C [address] [address] 06/11/2024 9:20 AM EST Office Visit Neurology, [place] [address] [address] Angie Barragan MD [address] [place] [address], [place] [address] Scheduled Procedures Name Priority Associated Diagnoses Date/Ti [...] Depression Screening 05/10/2023 05/10/2022 HbA1c 03/26/2024 09/24/2023, 01/2023, 05/10/2022, Additional history exists Albumin/Creatinine Ratio 03/29/2024 023, 02/25/2020, 10/03/2018, Additional history exists B-12 03/29/2024 03/29/2023, 08/24, 11/23/2020, Additional history exists Diabetic Eye Exam 09/20/2024 09/21/2023, , 08/30/2022, Additional history exists Diabetic Foot Exam 09/20/2024 09/21/2023, 1 , 02/24/2020, Additional history exists GFR 09/23/2024 09/24/2023, 090 01/2023, 06/04/2022, Additional history exists COLONOSCOPY-EVERY 5 [...] as of this encounter Visit Diagnoses Diagnosis Pre-operative cardiovascular examination- Primary Dyslipidemia, goal LDL below 70 Other and unspecified hyperlipidemia Type 2 diabetes mellitus with hemoglobin A1c goal of less than 7.5% (HCC) HTN, GOAL BELOW 140/90 Unspecified essential hypertension documented in this encounter Care Teams Cream Ripener Relationship Specialty Start Date End Date Fareed Nolen MD [address] [address] PCP - General Family Medicine 11/14/21 documented as of this encounter
--- OUTSIDE RECORDS SUMMARY | 2023-10-01 05:26 | External Medical Summary | Summary of Care ---
Author Name Unknown Organization [facility] Address [address] [address] Phone [phone] Care Team Providers Care Program Specialist Name Role Phone Fareed Nolen MD Primary Care Provider Reason for Visit * Reason Comments pre-op exam Encounter Details Date Type Department Care Team (Late st Contact Info) Description 09/21/2023 3:20 PM EST Office Visit [facility] [address] [facility] [address] [phone] Kaitlin Rudolph MD 21 [facility] [address] [phone] Preoperative clearance*; DM type 2 nursing care encounter ([facility]); Cervical spondylosis; Dyslipidemia, goal LDL below 70; Type 2 diabetes mellitus with hemoglobin A1c goal of less than 7.5% ([facility]); HTN, GOAL BELOW 140/90; RBBB (right bundle branch block); SEAN (generalized anxiety disorder); Personal history of DVT (deep vein thrombosis) Allergies Active Allergy Reactions Criticality Noted Date Comments Chlorhexidine Low 06/01/2021 Other reaction(s): RASH Penicillins 06/09/2002 thrush sore mouth Rash swelling Oxycodone-Acetaminophen Nausea/vomiting 011 documented as of this encounter (statuses as of 09/25/2023) Medications Medication Sig Dispensed Refills Start Date End Date Status Coenzyme Q10 100 MG Tablet Take 1 Tab by mouth daily. 30 Tab 5 03/18/2015 Active [place]-3 Fatty Acids (FISH OIL) 1000 MG Capsule [...] use of medications One daily. May use begp-tbh-dkalvvk 100 Tab 3 10/04/2020 Active Venlafaxine HCl [...] as of this encounter (statuses as of 09/25/2023) Active Problems Problem Noted Date Diagnosed Date [...] as of this encounter (statuses as of 09/25/2023) Resolved Problems Problem Noted Date Diagnosed Date [...] 1.63 FINAL Anticoagulation management encounter 04/03/2011 10/02/2018 supervisor intermediates current use of ant icoagulant therapy 04/03/2011 [...] as of this encounter (statuses as of 09/25/2023) Immunizations Name Administration Dates Next Due COVID-19 [...] this encounter Patient Instructions * Patient Instructions* Jefferson Zimmeryssa CristinaRICHMOND - 09/21/2023 3:24 PM EST Images from [...] calluses yourself. Talk to your doctor or rotogravure press operator (a doctor who specializes in foot care) [...] the area doesnt appear to be healing. [phone] [employer], [address] [place] [address], [place] [address]. All rights reserved. This information is not [...] information about this test. Date Last Reviewed: 12/22/201519991096-2316 [employer] [place] [address]. All rights reserved. This information is not [...] and embolism (04/03/2011) Anticoagulation management encounter (04/03/2011) supervisor intermediates current use of anticoagulant therapy (04/03/2011) Dyslipidemia, goal LDL below 70 (07/05/2009) HTN, GOAL BELOW 140/90 (06/10/2009) Trigger finger (11/10/2008) Displacement of lumbar intervertebral disc without myelopathy (2007) Personal history of malignant neoplasm of skin (05/12/2008) Type 2 diabetes mellitus with hemoglobin A1c goal of less than 7.5% (HCC) (10/13/2005) Advance directive discussed with patient (02/24/2005) HYPERTENSION NOS PURE HYPERCHOLESTEROLEM Generalized anxiety disorder MDD (major depressive disorder), recurrent episode, moderate (HCC) SEAN (generalized anxiety disorder) Current Medications Venlafaxine [...] MCG Oral Tablet, One daily. May use wwpp-cte-dorgcxm aspirin 81 MG chewable tablet, 81 mg, Oral, Daily(AM) [place]-3 Fatty Acids (FISH OIL) 1000 MG Capsule, [...] spine fusion, post interbody (06/2008); Miscellaneous Order ([facility] Only) (03/14/2011); Colonoscopy, Diagnostic (Rectum) (01/16/2013); EGD, [...] Preop testing is scheduled next week at [facility] Surgical Risk Scoring Revised Cardiac Risk Index [...] 0-2:low risk SHIRA, 3-4: intermediate risk of SHIAR, 5-8: high risk SHIRA 3 BMI Readings from Last 3 Encounters: 09/21/23 32.33 kg/m 08/09/23 32.74 kg/m 06/06/23 32.31 kg/m Assessment and Plan 1. DM type 2 nursing care encounter (HCC) - DIABETES FOOT EXAM - TELEMEDICINE DIABETIC EYE 2. Preoperative clearance - patient is cleared for surgery pending labs/EKG - preop tests will be done next week at [facility] Addendum 09/25/2023: labs and chest Xray stable. Abnormal EKG, cardiology referral placed. - patient may proceed with surgery after cardiology clearance 3. Cervical spondylosis - for surgery 4. Dyslipidemia, goal LDL below 70 5. Type 2 diabetes mellitus with hemoglobin A1c goal of less than 7.5% ([facility]) - last HbA1c 6.8 6. HTN, GOAL [...] information about this test. Date Last Reviewed: 12/22/201519998164-2017 [employer]. [address] [place] [address], [place] [address]. All rights reserved. This information is not [...] 11/28/2023 7:00 AM EDT Office Visit Family [facility], [place] [address] [phone] Fareed Nolen MD [facility] [place] [address] 01/22/2024 7:40 AM EDT Office Visit Dermatology, [place] [address] [address] Mami Bermeo PA-C [address] [place] [address] 06/11/2024 9:20 AM EST Office Visit Neurology, [place] [address] [address] Angie Barragan MD [address] [place] [address], [place] [address] Scheduled Procedures Name Priority Associated Diagnoses Date/Ti me COLONOSCOPY FLEXIBLE PROXIMA L DIAGNOSTIC Recall History of colonic polyps Health Maintenance Due Date Last Done Comments Zoster Vaccines (2 of 3) 12/15/2013 10/20/2013 COVID-19 Vaccine ( season) 2023 05/10/2022, 06/13/2021, 09/20/2020, Additional history exists Depression Screening 05/10/2023 05/10/2022 HbA1c 09/27/2023 03/29/2023, 04/22, 09/14/2021, Additional history exists Albumin/Creatinine Ratio 03/29/2024 023, 02/25/2020, 10/03/2018, Additional history exists B-12 03/29/2024 03/29/2023, 08/24, 11/23/2020, Additional history exists GFR 03/29/2024 03/29/2023, 05/23, 09/14/2021, Additional history exists Diabetic Eye Exam 09/20/2024 09/21/2023, , 08/30/2022, Additional history exists Diabetic Foot Exam 09/20/2024 09/21/2023, 1 , 02/24/2020, Additional history exists COLONOSCOPY-EVERY 5 YRS AGES [...] embolism documented in this encounter Care Teams Program Specialist Relationship Specialty Start Date End Date Fareed Nolen MD [address] [phone] PCP - General Family Medicine 11/14/21 documented as of this encounter
--- OUTSIDE RECORDS SUMMARY | 2023-10-01 05:26 | External Medical Summary | Summary of Care ---
Author Name Unknown Organization [facility] Address [address] [address] Phone [phone] Care Team Providers Care Alterations Supervisor Name Role Phone Fareed Nolne MD Primary Care Provider Encounter Details Date Type Department Care Team (Late st Contact Info) Description 09/26/2023 Orders Only [facility] [address] [phone] Fareed Nolen MD 21 [facility] [place] [id number] Allergies Active Allergy Reactions Criticality Noted Date Comments Chlorhexidine Low 06/01/2021 Other reaction(s): RASH Penicillins 06/09/2002 thrush sore mouth Rash swelling Oxycodone-Acetaminophen Nausea/vomiting 011 documented as of this encounter (statuses as of 09/26/2023) Medications Medication Sig Dispensed Refills Start Date End Date Status Coenzyme Q10 100 MG Tablet Take 1 Tab by mouth daily. 30 Tab 5 03/18/2015 Active [place]-3 Fatty Acids (FISH OIL) 1000 MG Capsule [...] use of medications One daily. May use ipft-mdt-ckljfwj 100 Tab 3 10/04/2020 Active Venlafaxine HCl [...] 7:00 AM EDT Office Visit Family Practice, [place] [address] [phone] Fareed Nolen MD [address] [address] 01/22/2024 7:40 AM EDT Office Visit D[place]atology, [place] [address] [address] Mami Bermeo PA-C [address] [address] 06/11/2024 9:20 AM EST Office Visit Neurology, [place] [address] [phone] Angie Barragan MD [address] [place] [address] Scheduled Procedures Name Priority Associated Diagnoses Date/Ti [...] Procedure Name Priority Date/Time Associated Diagnosis Comments XR CHEST 2 VIEWS Routine 09/24/2023 documented in this encounter Results * XR CHEST 2 VIEWS (09/24/2023) Anatomical Region Laterality Modality Chest Other 09/24/2023 Donald Gomez DO RADIOLOGY ( RAD GENERAL) documented in this encounter Care Teams Alterations Supervisor Relationship Specialty Start Date End Date Fareed Nolen MD 21 [facility] [address] [phone] PCP - General Family Medicine 11/14/21 documented as of this encounter
--- OUTSIDE RECORDS SUMMARY | 2023-10-01 05:26 | External Medical Summary | Summary of Care ---
Author Name Unknown Organization [facility] Address [address] [address] Phone [phone] Care Team Providers Care Qa Auditor Name Role Phone Fareed Nolen MD Primary Care Provider Reason for Visit * Reason Onset Date Comments Scan To Read 09/21/2023 Diabetic eye Encounter Details Date Type Department Care Team (Late st Contact Info) Description 09/21/2023 Telephone [facility] 21 [facility] [address] [place] [phone] Kaitlin Rudolph MD 21 [facility] [address] [phone] Scan To Read (Diabetic eye) Allergies Active Allergy Reactions Criticality Noted Date Comments Chlorhexidine Low 06/01/2021 Other reaction(s): RASH Penicillins 06/09/2002 thrush sore mouth Rash swelling Oxycodone-Acetaminophen Nausea/vomiting 011 documented as of this encounter (statuses as of 09/25/2023) Medications Medication Sig Dispensed Refills Start Date End Date Status Coenzyme Q10 100 MG Tablet Take 1 Tab by mouth daily. 30 Tab 5 03/18/2015 Active [place]-3 Fatty Acids (FISH OIL) 1000 MG Capsule [...] use of medications One daily. May use yzia-dyl-utwmuti 100 Tab 3 10/04/2020 Active Venlafaxine HCl [...] the morning. 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 Slick Rodarte MD 09/21/2023 4:19 PM * Telephone Encounter - Jenn Zimmer LPN - 09/21/2023 3:33 PM EST A Diabetic Telemed Eye image was taken and requires your interpretation for Dr Rudolph. Please check your inbasket for image. Patient prefers to be seen at [facility] if a follow-up appointment is needed. documented in this encounter Plan of Treatment Upcoming Encounters Date Type Department Care Team (Late st Contact Info) Description 11/28/2023 7:00 AM EDT Office Visit Family Practice, [place] [address] [phone] Fareed Nolen MD [address] [address] 01/22/2024 7:40 AM EDT Office Visit Dermatology, [place] [address] [address] Mami Bermeo PA-C [address] [place] [address] [address] 06/11/2024 9:20 AM EST Office Visit Neurology, [place] [address] [address] Angie Barragan MD 200 [place] [address] Scheduled Procedures Name Priority Associated Diagnoses Date/Ti [...] Not on filedocumented as of this encounter Care Teams Qa Auditor Relationship Specialty Start Date End Date Fareed Nolen MD [address] [address] PCP - General Family Medicine 11/14/21 documented as of this encounter
--- OUTSIDE RECORDS SUMMARY | 2023-10-01 05:26 | External Medical Summary | Summary of Care ---
Author Name Unknown Organization [facility] Address [address] [address] Phone [phone] Care Team Providers Care Airplane Mechanic Apprentice Name Role Phone Fareed Nolen MD Primary Care Provider Reason for Referral * Evaluate & Treat - Unlimited Visits (Within 3 days (urgent)) - Authorized Specialty Diagnoses / Procedures Referred By Contact Referred To Contact Cardiovascular Medicine / Cardiology Diagnoses Abnormal EKG Preoperative clearance Kaitlin Rudolph MD [address] [id number] Referral ID Status Reason Start Date Expiration Date Visits Requested Visits Authorized [id number] Authorized Specialty Services Required 09/25/[phone] [...] (Late st Contact Info) Description 09/24/2023 [facility] [address] [phone] Kaitlin Rudolph MD [address] [address] Advice (09/24) Allergies Active Allergy Reactions Criticality Noted Date Comments Chlorhexidine Low 06/01/2021 Other reaction(s): RASH Penicillins 06/09/2002 thrush sore mouth Rash swelling Oxycodone-Acetaminophen Nausea/vomiting 011 documented as of this encounter (statuses as of 09/28/2023) Medications Medication Sig Dispensed Refills Start Date End Date Status Coenzyme Q10 100 MG Tablet Take 1 Tab by mouth daily. 30 Tab 5 03/18/2015 Active [place]-3 Fatty Acids (FISH OIL) 1000 MG Capsule [...] hemoglobin A1c goal of less than 7.0% ([facility]) Take 1 Tab by mouth daily. with food. 100 Tab 5 02/24/2020 Active B-12 500 MCG Oral TabletIndications:En counter for long-term (current) use of medications One daily. 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 Pt did not want to r/s surgery [...] 09/25/2023 3:56 PM EST Fax received by assistant front desk manager in the meantime, Jazmyne needs Dr. Rudolph [...] a PA with the anesthesiology dept at [facility] called asked if records were received, informed that records were not received as of yet, she asked for a fax number directly to [facility], given to Jazmyne. * Telephone Encounter - Sandee Quijano OSA - 09/25/2023 3:47 PM EST Spoke to [facility] again ([phone]). They advised that fax was sent just after 10am today. Fax located in [facility]. Placed on Dr. Rudoplh's desk. * Telephone Encounter - Kaitlin Rudolph MD - 09/25/2023 3:33 PM EST Spoke with the patient, he had labs/EKG/Chest xray done yesterday, please get reports. * Telephone Encounter - Sandee Quijano OSA - 09/25/2023 9:33 AM EST Spoke to [place] [facility] records who advised that they will look into this and fax them to me. * Telephone Encounter - Kaitlin Rudolph MD - 09/24/2023 12:52 PM EST Patient is scheduled for preop tests at [facility] 09/24/23. Please get labs, EKG, CXR results when available and place it on my desk documented in this encounter Plan of Treatment Upcoming Encounters Date Type Department Care Team (Late st Contact Info) Description 11/28/2023 7:00 AM EDT Office Visit Family [facility] [place] [address] [phone] Fareed Nolen MD [address] [address] 01/22/2024 7:40 AM EDT Office Visit D[place]ology[place] [address] [address] Mami Bermeo PA-C [address] [address] 06/11/2024 9:20 AM EST Office Visit Neurology, [place] [address] [address] Angie Barragan MD [address] [place] [address], [place] [address] Scheduled Procedures Name Priority Associated Diagnoses Date/Ti [...] unspecified documented in this encounter Care Teams Airplane Mechanic Apprentice Relationship Specialty Start Date End Date Fareed Nolen MD [address] [address] PCP - General Family Medicine 11/14/21 documented as of this encounter
--- OUTSIDE RECORDS SUMMARY | 2023-10-01 05:26 | External Medical Summary | Summary of Care ---
Author Name Unknown Organization [facility] Address [address] [address] Phone [phone] Care Team Providers Care Sample Case Porter Name Role Phone Fareed Nolen MD Primary Care Provider Reason for Referral * Evaluate & Treat - Unlimited Visits (Within 3 days (urgent)) - Authorized Specialty Diagnoses / Procedures Referred By Contact Referred To Contact Cardiovascular Medicine / Cardiology Diagnoses Abnormal EKG Preoperative clearance Kaitlin Rudolph MD [address] [address] Referral ID Status Reason Start Date Expiration Date Visits Requested Visits Authorized [id number] Authorized Specialty Services Required 09/25/[phone] [...] (Late st Contact Info) Description 09/[facility] [facility] [address] [phone] Kaitlin Rudolph MD [address] [phone] Advice (09/24) Allergies Active Allergy Reactions Criticality Noted Date Comments Chlorhexidine Low 06/01/2021 Other reaction(s): RASH Penicillins 06/09/2002 thrush sore mouth Rash swelling Oxycodone-Acetaminophen Nausea/vomiting 011 documented as of this encounter (statuses as of 09/26/2023) Medications Medication Sig Dispensed Refills Start Date End Date Status Coenzyme Q10 100 MG Tablet Take 1 Tab by mouth daily. 30 Tab 5 03/18/2015 Active [place]-3 Fatty Acids (FISH OIL) 1000 MG Capsule [...] hemoglobin A1c goal of less than 7.0% ([facility]) Take 1 Tab by mouth daily. with food. 100 Tab 5 02/24/2020 Active B-12 500 MCG Oral TabletIndications:En counter for long-term (current) use of medications One daily. May use jrri-avx-rotouln 100 Tab 3 10/04/2020 Active Venlafaxine HCl [...] & EVENING MEALS 360 Tablet 3 07/27/2023 Active clonazePAM 0.25 MG Oral Tablet Disintegrating [...] 0.5 in AM will see psych at [facility] Heart murmur, systolic 04/05/2016 Personal history [...] Aissatou Dt/Tm Resulted Value Status 07/26/17 9:12A 1/4/18 2.24 FINAL PSA SCREENING(ng/mL) Aissatou Dt/Tm Resulted Value Status 04/04/16 10:56A 04/05/16 2.07 FINAL 08/10/14 9:27A 08/10/14 1.81 FINAL 04/04/16 10:56A 04/05/16 2.07 FINAL 08/10/14 9:27A 08/10/14 1.81 FINAL 03/27/13 10:53A 03/27/13 1.45 FINAL 08/10/14 9:27A 08/10/14 1.81 FINAL 03/27/13 10:53A 03/27/13 1.45 FINAL 12/20/11 8:53A 12/20/11 1.63 FINAL Anticoagulation management encounter 04/03/2011 10/02/2018 [facility] current use of ant icoagulant therapy 04/03/2011 [...] encounter Miscellaneous Notes * Telephone Encounter - Citlali Paredes OSA - 09/26/2023 10:56 AM EST Contacted pt, scheduled appt for 09/27/23 in [place]. Pt did not want to r/s surgery [...] 09/25/2023 3:56 PM EST Fax received by front desk clerk in the meantime, Jazmyne needs Dr. Rudolph [...] a PA with the anesthesiology dept at [facility] called asked if records were received, informed that records were not received as of yet, she asked for a fax number directly to [facility], given to Jazmyne. * Telephone Encounter - Sandee Quijano OSA - 09/25/2023 3:47 PM EST Spoke to [facility] records again ([phone]). They advised that fax was sent just after 10am today. Fax located in [facility]. Placed on Dr. Rudolph's desk. * Telephone Encounter - Kaitlin Rudolph MD - 09/25/2023 3:33 PM EST Spoke with the patient, he had labs/EKG/Chest xray done yesterday, please get reports. * Telephone Encounter - Sandee Quijano OSA - 09/25/2023 9:33 AM EST Spoke to [place] [facility] records who advised that they will look into this and fax them to me. * Telephone Encounter - Kaitlin Rudolph MD - 09/24/2023 12:52 PM EST Patient is scheduled for preop tests at [facility] 09/24/23. Please get labs, EKG, CXR results when available and place it on my desk documented in this encounter Plan of Treatment Upcoming Encounters Date Type Department Care Team (Late st Contact Info) Description 09/27/2023 1:00 PM EST Office Visit Cardiovascular Services [facility] [place] [address] [place] [address] Letty Smith MD [address] [place] [address] 11/28/2023 7:00 AM EDT Office Visit Family Practice, [place] 21 [facility] [place] [phone] Fareed Nolen MD 21 [place] [address] 01/22/2024 7:40 AM EDT Office Visit Dermatology, [place] [address] [place] [phone] Mami Bermeo PA-C 27 [facility] [address] [place] [address] 06/11/2024 9:20 AM EST Office Visit Neurology, [place] 21 [place] [address] Angie Barragan MD [address] [place] [address], [place] [address] Scheduled Procedures Name Priority Associated Diagnoses Date/Ti [...] unspecified documented in this encounter Care Teams Sample Case Porter Relationship Specialty Start Date End Date Fareed Nolen MD 21 [facility] [address] [phone] PCP - General Family Medicine 4/25/22 documented as of this encounter
--- OUTSIDE RECORDS SUMMARY | 2023-10-01 05:27 | External Medical Summary | Summary of Care ---
Author Name Unknown Organization [facility] Address [address] [address] Phone [phone] Care Team Providers Care Hospice Patient Care Secretary Name Role Phone Fareed Nolen MD Primary Care Provider Reason for Visit * Reason Comments pre-op exam Encounter Details Date Type Department Care Team (Late st Contact Info) Description 09/21/2023 3:20 PM EST Office Visit [facility] 21 [facility] [address] [place] [phone] Kaitlin Rudolph MD 21 [facility] [address] [phone] Preoperative clearance*; DM type 2 nursing care encounter ([facility]); Cervical spondylosis; Dyslipidemia, goal LDL below 70; Type 2 diabetes mellitus with hemoglobin A1c goal of less than 7.5% ([facility]); HTN, GOAL BELOW 140/90; RBBB (right bundle [...] mouth daily. 30 Tab 5 03/18/2015 Active [place]-3 Fatty Acids (FISH OIL) 1000 MG Capsule [...] use of medications One daily. 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 Talk to your doctor or hose tubing backer (a doctor who specializes in foot care) [...] the area doesnt appear to be healing. [phone] [employer], [address] [place] [address], [place] [address]. All rights reserved. This information is not [...] information about this test. Date Last Reviewed: 12/22/201519999565-2285 [employer]. [address] [place] [address]. All rights reserved. This information is not [...] and embolism (04/03/2011) Anticoagulation management encounter (04/03/2011) intermediate manager current use of anticoagulant therapy (04/03/2011) Dyslipidemia, [...] MCG Oral Tablet, One daily. May use mkmd-zks-ypcvxqe aspirin 81 MG chewable tablet, 81 mg, Oral, Daily(AM) [place]-3 Fatty Acids (FISH OIL) 1000 MG Capsule, [...] spine fusion, post interbody (06/2008); Miscellaneous Order ([facility] Only) (03/14/2011); Colonoscopy, Diagnostic (Rectum) (01/16/2013); [...] Preop testing is scheduled next week at [facility] Surgical Risk Scoring Revised Cardiac Risk Index [...] 1. DM type 2 nursing care encounter ([facility]) - DIABETES FOOT EXAM - TELEMEDICINE DIABETIC EYE 2. Preoperative clearance - patient is cleared for surgery pending labs/EKG - preop tests will be done next week at [facility] 3. Cervical spondylosis - for surgery 4. Dyslipidemia, goal LDL below 70 5. Type 2 diabetes mellitus with hemoglobin A1c goal of less than 7.5% ([facility]) - last HbA1c 6.8 6. HTN, GOAL [...] Foot Exam completed today. Provider aware. Jenn Zimmre LPN Socks and Shoes Removed for Annual [...] information about this test. Date Last Reviewed: 12/22/201519999427-5161 [employer]. [address] [place] [address], [place] [address]. All rights reserved. This information is not [...] 7:00 AM EDT Office Visit Family Practice, [place] [address] [phone] Fareed Nolen MD 21 [facility] [address] [place] [address] 01/22/2024 7:40 AM EDT Office Visit D[place]atology, [place] [address] [address] Mami Bermeo PA-C [address] [address] 06/11/2024 9:20 AM EST Office Visit Neurology, [place] [address] [address] Angie Barragan MD 200 [facility], [place] [phone] Scheduled Procedures Name Priority Associated Diagnoses Date/Ti [...] embolism documented in this encounter Care Teams Hospice Patient Care Secretary Relationship Specialty Start Date End Date Fareed Nolen MD [address] [address] PCP - General Family Medicine 11/14/21 documented as of this encounter
--- OUTSIDE RECORDS SUMMARY | 2023-10-01 05:27 | External Medical Summary | Summary of Care ---
Author Name Unknown Organization [facility] Address [address] [address] Phone [phone] Care Team Providers Care Metal Mold Dresser Name Role Phone Fareed Nolen MD Primary Care Provider Reason for Visit * Reason Comments pre-op exam Encounter Details Date Type Department Care Team (Late st Contact Info) Description 09/21/2023 3:20 PM EST Office Visit [facility] 21 [facility] [address] [phone] Kaitlin Rudolph MD 21 [facility] [address] [phone] Preoperative clearance*; DM type 2 nursing care encounter ([facility]); Cervical spondylosis; Dyslipidemia, goal LDL below 70; Type 2 diabetes mellitus with hemoglobin A1c goal of less than 7.5% ([facility]); HTN, GOAL BELOW 140/90; RBBB (right bundle branch block); SEAN (generalized anxiety disorder); Personal history of DVT (deep vein thrombosis) Allergies Active Allergy Reactions Criticality Noted Date Comments Chlorhexidine Low 06/01/2021 Other reaction(s): RASH Penicillins 06/09/2002 thrush sore mouth Rash swelling Oxycodone-Acetaminophen Nausea/vomiting 011 documented as of this encounter (statuses as of 09/24/2023) Medications Medication Sig Dispensed Refills Start Date End Date Status Coenzyme Q10 100 MG Tablet Take 1 Tab by mouth daily. 30 Tab 5 03/18/2015 Active [place]-3 Fatty Acids (FISH OIL) 1000 MG Capsule [...] use of medications One daily. May use zdfq-zwi-zatecio 100 Tab 3 10/04/2020 Active Venlafaxine HCl [...] the morning. 90 Capsule 1 08/29/2023 Active clonazePAM 0.5 MG Oral Tablet (KlonoPIN) Take 1 Tablet by mouth daily. 30 Tablet 5 08/29/2023 4 Discontinu ed(Medicat ion List Clean Up) documented as of this encounter (statuses as of 09/24/2023) Active Problems Problem Noted Date Diagnosed Date [...] 0.5 in AM will see psych at [facility] Heart murmur, systolic 04/05/2016 Personal history [...] as of this encounter (statuses as of 09/24/2023) Resolved Problems Problem Noted Date Diagnosed Date [...] 08/10/14 9:27A 08/10/14 1.81 FINAL 04/04/16 10:56A 9/14/16 2.07 FINAL 08/10/14 9:27A 08/10/14 1.81 FINAL 03/27/13 10:53A 03/27/13 1.45 FINAL 08/10/14 9:27A 08/10/14 1.81 FINAL 03/27/13 10:53A 03/27/13 1.45 FINAL 12/20/11 8:53A 12/20/11 1.63 FINAL Anticoagulation management encounter 04/03/2011 10/02/2018 [facility] current use of ant icoagulant therapy 04/03/2011 [...] as of this encounter (statuses as of 09/24/2023) Immunizations Name Administration Dates Next Due COVID-19 [...] encounter Patient Instructions * Patient Instructions* Jenn ZimmerRICHMOND - 09/21/2023 3:24 PM EST Images from [...] calluses yourself. Talk to your doctor or production engine repairer (a doctor who specializes in foot care) [...] the area doesnt appear to be healing. [phone] [employer], [address] [place] [address]. All rights reserved. This information is not [...] information about this test. Date Last Reviewed: 12/22/201519993942-5265 [employer] [address] [place] [address]. All rights reserved. This information is not [...] and embolism (04/03/2011) Anticoagulation management encounter (04/03/2011) [facility] current use of anticoagulant therapy (04/03/2011) Dyslipidemia, [...] MCG Oral Tablet, One daily. May use suvj-dbc-tabipus aspirin 81 MG chewable tablet, 81 mg, Oral, Daily(AM) [place]-3 Fatty Acids (FISH OIL) 1000 MG Capsule, [...] spine fusion, post interbody (06/2008); Miscellaneous Order ([facility] Only) (03/14/2011); Colonoscopy, Diagnostic (Rectum) (01/16/2013); EGD, [...] Preop testing is scheduled next week at [facility] Surgical Risk Scoring Revised Cardiac Risk [...] tests will be done next week at [facility] 3. Cervical spondylosis - for surgery 4. Dyslipidemia, goal LDL below 70 5. Type 2 diabetes mellitus with hemoglobin A1c goal of less than 7.5% ([facility]) - last HbA1c 6.8 6. HTN, [...] testing: Scheduled for preop tests next week [place] * Jenn Zimmer LPN - 09/21/2023 3:23 [...] information about this test. Date Last Reviewed: 12/22/201519991251-2326 [employer].. [address] [place] [address], [place] [address]. All rights reserved. This information is not [...] 11/28/2023 7:00 AM EDT Office Visit Family [facility] [place] [address] [phone] Fareed Nolen MD 21 [facility] [address] [place] [address] 01/22/2024 7:40 AM EDT Office Visit Dermatology, [place] [address] [phone] Mami Bermeo PA-C [address] [place] [address] [address] 06/11/2024 9:20 AM EST Office Visit Neurology, [place] [address] [address] Angie Barragan MD [address] [place] [address], [place] [phone] Scheduled Procedures Name Priority Associated Diagnoses Date/Ti [...] embolism documented in this encounter Care Teams Metal Mold Dresser Relationship Specialty Start Date End Date [facility]areed Nolen [facility] [address] PCP - General Family Medicine 11/14/21 documented as of this encounter
--- OUTSIDE RECORDS SUMMARY | 2023-10-01 05:27 | External Medical Summary | Summary of Care ---
Author Name Unknown Organization [facility] Address [address] [place] [address] Phone [phone] Care Team Providers Care Electronic Components Assembler Name Role Phone Fareed Nolen MD Primary Care Provider Reason for Visit * Reason Onset Date Comments Films 09/07/2023 Encounter Details Date Type Department Care Team (Late st Contact Info) Description 09/07/2023 Telephone Radiology Film File [address], [place] [phone] Kaitlin Rudolph [facility] [place] [id number] Films Allergies Active Allergy Reactions Criticality Noted Date Comments Chlorhexidine Low 06/01/2021 Other reaction(s): RASH Penicillins 06/09/2002 thrush sore mouth Rash swelling Oxycodone-Acetaminophen Nausea/vomiting 011 documented as of this encounter (statuses as of 09/25/2023) Medications Medication Sig Dispensed Refills Start Date End Date Status Coenzyme Q10 100 MG Tablet Take 1 Tab by mouth daily. 30 Tab 5 03/18/2015 Active [place]-3 Fatty Acids (FISH OIL) 1000 MG Capsule [...] use of medications One daily. May use [id number] 100 Tab 3 10/04/2020 Active Venlafaxine HCl [...] mouth daily. 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 [place]elope Authorization to Release on file. Images pushed to [facility] Life Image account. Report(s) faxed to [phone]. Successful fax confirmation received. documented in this encounter Plan of Treatment Upcoming Encounters Date Type Department Care Team (Late st Contact Info) Description 11/28/2023 7:00 AM EDT Office Visit [place] [phone] Fareed Nolen MD [address] [place] [address] 01/22/2024 7:40 AM EDT Office Visit Dermatology, [place] [address] [place] [address] [place] [address] Mami Bermeo PA-C [address] [place] [address] [place] [phone] 06/11/2024 9:20 AM EST Office Visit Neurology, [address] [place] [phone] Angie Barragan MD [address] [facility], [place] [phone] Scheduled Procedures Name Priority Associated Diagnoses Date/Ti [...] filedocumented as of this encounter Care Teams Electronic Components Assembler Relationship Specialty Start Date End Date Fareed Nolen MD [address] [place] [phone] PCP - General Family Medicine 11/14/21 documented as of this encounter
--- OUTSIDE RECORDS SUMMARY | 2023-10-01 05:27 | External Medical Summary | Summary of Care ---
Author Name Unknown Organization [facility] Address [address] [place] [place] [address] Phone [phone] Care Team Providers Care Taxation Inspector Name Role Phone Fareed Nolen MD Primary Care Provider Reason for Visit * Reason Onset Date Comments Scan To Read 09/21/2023 Diabetic eye Encounter Details Date Type Department Care Team (Late st Contact Info) Description 09/21/2023 Telephone [facility] [place] [phone] Kaitlin Rudolph MD [address] [facility] [place] [phone] Scan To Read (Diabetic eye) Allergies Active [...] mouth daily. 30 Tab 5 03/18/2015 Active [place]-3 Fatty Acids (FISH OIL) 1000 MG Capsule [...] use of medications One daily. 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 Patient prefers to be seen at [facility] if a follow-up appointment is needed. documented in this encounter Plan of Treatment Upcoming Encounters Date Type Department Care Team (Late st Contact Info) Description 11/28/2023 7:00 AM EDT Office Visit Family Practice, [place] [address] [place] [phone] Fareed Nolen MD [address] [place] [address] 01/22/2024 7:40 AM EDT Office Visit Dermatology, [place] [address] [place] [address] [place] [address] Mami Bermeo PA-C [address] [place] [address] [place] [address] 06/11/2024 9:20 AM EST Office Visit Neurology, [place] [address] [place] [address] Angie Barragan MD 200 [place] [address] Scheduled Procedures Name Priority Associated Diagnoses Date/Ti [...] filedocumented as of this encounter Care Teams Taxation Inspector Relationship Specialty Start Date End Date Fareed Nolen MD [address] [place] [phone] PCP - General Family Medicine 11/14/21 documented as of this encounter
--- OUTSIDE RECORDS SUMMARY | 2023-10-01 05:27 | External Medical Summary | Summary of Care ---
Author Name Unknown Organization [facility] Address [address] [place] [place] [address] Phone [phone] Care Team Providers Care Flame Hardening Machine Operator Name Role Phone Fareed Nolen MD Primary Care Provider Reason for Visit * Reason Onset Date Comments Scan To Read 09/21/2023 Diabetic eye Encounter Details Date Type Department Care Team (Late st Contact Info) Description 09/21/2023 Telephone [facility] [place] [phone] Kaitlin Rudolph MD [address] [facility] [place] [phone] Scan To Read (Diabetic eye) Allergies Active [...] mouth daily. 30 Tab 5 03/18/2015 Active [place]-3 Fatty Acids (FISH OIL) 1000 MG Capsule [...] use of medications One daily. 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 Patient prefers to be seen at [facility] if a follow-up appointment is needed. documented in this encounter Plan of Treatment Upcoming Encounters Date Type Department Care Team (Late st Contact Info) Description 11/28/2023 7:00 AM EDT Office Visit Family Practice, [place] [address] [place] [phone] Fareed Nolen MD [address] [place] [address] 01/22/2024 7:40 AM EDT Office Visit Dermatology, [place] [address] [place] [address] [place] [address] Mami Bermeo PA-C [address] [place] [address] [place] [address] 06/11/2024 9:20 AM EST Office Visit Neurology, [place] [address] [place] [address] Angie Barragan MD 200 [place] [address] Scheduled Procedures Name Priority Associated Diagnoses Date/Ti [...] filedocumented as of this encounter Care Teams Flame Hardening Machine Operator Relationship Specialty Start Date End Date Fareed Nolen MD [address] [place] [phone] PCP - General Family Medicine 11/14/21 documented as of this encounter
[2023-10-01] MEDS: GABAPENTIN 300 MG CAP PO SCH (05:39)
[2023-10-01] MEDS: CeleBREX 200 MG CAP PO SCH (05:39)
[2023-10-01] MEDS: ACETAMINOPHEN 500 MG TAB PO SCH (05:39)
[2023-10-01] MEDS: LR 60ML/HR IV SCH (05:40)
[2023-10-01] MEDS: LR 15ML/HR IV SCH (05:40)
[2023-10-01] MEDS: VANCOMYCIN HCL 1,500 MG in SODIUM CHLORIDE 0.9% 500 ML IV SCH (05:40)
[2023-10-01] MEDS ORDERED: MIDAZOLAM HCL 1 MG/ML 2ML VIAL ONE (06:50)
[2023-10-01] MEDS ORDERED: fentaNYL citrate PF 100 MCG/2 ML VIAL ONE (06:50)
[2023-10-01] MEDS ORDERED: GLYCOPYRROLATE 0.2 MG/ML VIAL ONE (06:50)
[2023-10-01] MEDS ORDERED: ONDANSETRON INJ 2 MG/ML 2 ML VIAL ONE (06:50)
[2023-10-01] MEDS ORDERED: DEXAMETHASONE SOD INJ 4 MG/ML VIAL ONE (06:50)
[2023-10-01] MEDS ORDERED: ROCURONIUM BROMIDE 10 MG/ML 5 ML VIAL IV ONE (06:50)
[2023-10-01] MEDS ORDERED: PROPOFOL IV EMULSION 10 MG/ML 20 ML VIAL IV ONE (06:50)
[2023-10-01] MEDS ORDERED: LIDOCAINE 2% 2 ML VIAL/AMP(20MG/ML) INFIL ONE (06:50)
[2023-10-01] MEDS ORDERED: SUGAMMADEX SODIUM 200 MG/2 ML VIAL IV ONE (06:55)
--- NOTE | 2023-10-01 07:38 | History & Physical Bridge Note ---
Date of Service October 01, 2023 History & Physical Bridge Note I have examined the patient, reviewed the History & Physical and in the interval since the performance of the History & Physical I have noted the following changes of clinical significance: no changes noted
--- NOTE | 2023-10-01 07:40 | History & Physical Report ---
Date of Service October 01, 2023 Assessment & Plan (1) Cervical stenosis of spinal canal: Plan: Anterior cervical discectomy and fusion C3-C5 History of Present Illness Chief Complaint: Neck and arm pain Primary Care Provider: Fareed Nolen MD This is a 78-year-old male who presents with chronic persistent neck and arm pain after failing course of nonoperative care is here for surgical invention. Allergies Allergy/AdvReac Type Severity Reaction Status Date / Time chlorhexidine Allergy Severe rash/itchin Verified 10/01/23 05:31 g Penicillins AdvReac Intermediate oral pills Verified 10/01/23 05:31 mouth sore and mouth ulcers as a child oxycodone AdvReac Mild NAUSEA Verified 10/01/23 05:31 Home Medications Medication Instructions Recorded Confirmed Type clonazepam 0.5 mg tablet 0.25 mg PO DAILY PRN Anxiety 05/27/21 10/01/23 History coenzyme Q10 100 mg capsule 100 mg PO QAM 05/27/21 10/01/23 History (CoQ-10) cyanocobalamin (vitamin B-12) 500 500 mcg PO QAM 05/27/21 10/01/23 History mcg tablet (Vitamin B-12) ibuprofen 200 mg tablet (Advil) 200 mg PO Q6H PRN Pain 05/27/21 10/01/23 History lisinopril 20 1 tab PO QAM 05/27/21 10/01/23 History mg-hydrochlorothiazide 12.5 mg tablet metformin 500 mg tablet 500 mg PO BID 05/27/21 10/01/23 History pyridoxine (vitamin B6) 100 mg 100 mg PO QAM 05/27/21 10/01/23 History tablet (Vitamin B-6) venlafaxine 150 mg tablet,extended 150 mg PO HS 05/27/21 10/01/23 History release 24 hr lisinopril 20 0.5 tab PO HS 09/19/23 10/01/23 History mg-hydrochlorothiazide 12.5 mg tablet pregabalin 150 mg capsule 150 mg PO BID 09/19/23 10/01/23 History Past Med/Surg History Medical History (Updated 10/01/23 @ 07:39 by Donald Isaac DO) DM type 2 (diabetes mellitus, type 2) Glucose stable History of skin cancer removed Anxiety and depression Cardiac murmur since childhood no social security specialist; last echo > 20 years ago no significant murmur noted at PAT appt 09/24/23 History of DVT (deep vein thrombosis) 2014 RUE - post op - treated with AC- treated with Lovenox injection x several months- no issues since - has since had lumbar surgery - no issues HTN (hypertension) HLD (hyperlipidemia) Surgical History History of cataract surgery Left cataract History of left knee surgery History of excision of pilonidal cyst x2 History of cervical spinal surgery ROM WNL History of esophagogastroduodenoscopy (EGD) History of colonoscopy H/O cervical spine surgery "2011: Cervical corpectomy C6 by Dr. Isaac " H/O Spinal surgery "2008: Lumbar decompression and fusion L4-L5 by Dr. Isaac. 2018: hardware removal L4-L5, decompression and fusion L2-S1 by Dr. Isaac" Family History Other No family history of adverse response to anesthesia Social History Smoking Status: Former smoker Tobacco Type: Cigarettes Smoking End Date: 55 years ago; Second Hand Exposure: No; Do You Dip or Chew Tobacco: No; Tobacco Cessation Education Requested by Patient: No Hx Alcohol Use: No Hx Substance Use: No Preferred Language: [place] Citizen Communication Ability: Effective Hardware Supplies Sales Representative Required: No Beliefs That Will Affect Care: None Current Living Situation: Spouse Other Information That Helps Us Care for You: No Feels Safe at Home: Yes Safety Concerns: Feels Safe At This Time Assistive Devices: Glasses Physical Exam Physical Exam: Patient is alert and oriented Heart regular in rhythm lungs clear Results & Data Results & Data Vital Signs (Past 12 Hours) Vital Signs Temp Pulse Resp BP Pulse Ox O2 Del Method 10/01/23 05:59 36.7 C 82 20 156/79 H 97 Room Air
[2023-10-01] MEDS ORDERED: ePHEDrine sulfate 50 MG/ML AMP IV PRN (07:43)
[2023-10-01] MEDS ORDERED: ATROPINE SULFATE 0.1 MG/ML 10ML SYR IV PRN (07:43)
[2023-10-01] MEDS ORDERED: fentaNYL citrate PF 100 MCG/2 ML VIAL IV PRN (07:43)
[2023-10-01] MEDS ORDERED: ONDANSETRON INJ 2 MG/ML 2 ML VIAL IV PRN ×2 (07:43→11:15)
--- NOTE | 2023-10-01 09:32 | Operative Report ---
Post Operative Report Pre & Post Diagnosis Operation Date: 10/01/23 07:45 Pre-Op Diagnosis: Cervical Spondylosis with Myelopathy Post-Op Diagnosis: Cervical Spondylosis with Myelopathy I identified the patient and participated in the time-out.: Yes Procedure Operation Date: 10/01/23 07:45 Actual Procedures #1 anterior cervical discectomy with bilateral foraminotomies C3-C4 C4-C5. #2 anterior cervical arthrodesis C3-C4 C4-C5. #3 placement of globus coalition cage filled with I factor VIII millimeters in height at C3-C4 9 mm at C4-C5. Surgeon Donald Isaac, Asbestos Cement Sheet Supervisor Alexandra Vitale Estimated Blood Loss 10 Findings Consistent with Post-Op Diagnosis Specimens None Indications This is a 78-year-old male known to me that presents with above-mentioned diagnosis after failing course of nonoperative care is here for surgical invention. Description of Procedure Patient was met with identified informed consent obtained. Patient was then taken to the operative suite underwent patient placed in supine position ingestible head Cunningham hogshead inspector. All bony promises well-padded eyes inspected to ensure no external precipice upon them. This point the anterior cervical spine was prepped and draped in a sterile fashion. The assistance of fluoroscopy identified the C4 vertebral body and a transverse incision was placed along the right anterior aspect of the cervical spine overlying this region. Blunt dissection with assistance of bipolar electrocautery is then performed down to expose the anterior cervical spine from C3-C5. Self-retaining retractors placed. Then performed a complete discectomy of C4-C5 out to the uncovertebral notch bilaterally. Jewett distraction pins utilized to assist in visualization. Removed all posterior annular fibers longitudinal ligament bilateral foraminotomies performed and an 9 mm coalition cage filled with I factor tapped in position and screwed into place. Then proceeded the C3-C4 and again complete discectomy performed out to the uncovertebral notch bilaterally. Jewett distracting pins again utilized. Removed all posterior annular fibers longitudinal ligament bilateral foraminotomies were performed and an 8 mm coalition cage filled with I factor tapped position and screwed into place. The incision was then copiously irrigated explored to ensure no damage to surrounding structures remaining bleeding. 10 round MERI drain inserted. The incision was then closed with 2-0 Vicryl and fascia and 4 Monocryl for final c losure. Steri-Strips sterile dressings placed. Patient waken taken to PACU stable condition. Please note spinal cord monitoring visualized at the procedure no changes noted. Lastly Alexandra Vitale was present at the entire surgeon with the patient positioning complex portions of the surgery and final skin closure. I attest to the content of the Intraoperative Record and any orders documented therein. Any exceptions are noted below.
--- NOTE | 2023-10-01 10:27 | Fluoroscopy Report ---
FL cervical 2-3V CLINICAL HISTORY: ACDF C3-C5 COMPARISON STUDY: 03/16/2011 FLUOROSCOPY TIME: 14.7 seconds FLUOROSCOPY IMAGES: 2 EXPOSURE DOSE: 1.69 mGy FINDINGS: Study is limited secondary to positioning and magnification of the images. Anterior fusion hardware is noted at C3-C4 and C4-C5 with additional anterior plate and screw fusion on the AP images extending from C5-C7. Endotracheal tube and surgical drainage catheter are noted. Apparent surgical sponge projects over the anterior operative bed on the lateral view. Note that the images were submit eri following completion of the surgery. IMPRESSION: Fluoroscopic assistance as above. ACT 112: Negative or not required by law. Electronically signed by: Gurmeet Topete M.D. 10/01/2023 10:25 AM
--- NOTE | 2023-10-01 10:40 | Anesthesiology Progress Note ---
Date of Service October 01, 2023 Anesthesia Post Procedure Vital Signs Vital Signs: Temp Pulse Pulse Resp BP Pulse Ox O2 Del Method 10/01/23 10:30 85 20 136/79 94 Room Air 10/01/23 10:20 97.5 F L 78 16 135/72 94 Room Air 10/01/23 10:10 77 18 139/69 95 Room Air 10/01/23 10:00 83 16 133/76 98 Room Air 10/01/23 09:50 80 17 141/76 H 93 Room Air 10/01/23 09:40 97.0 F L 75 14 133/71 97 Room Air 10/01/23 05:59 98.1 F 82 20 156/79 H 97 Room Air Transfer of Care Handoff Completed per policy Notes Mental Status: alert / awake / arousable and participated in evaluation Patient Amnestic to Procedure: Yes Nausea / Vomiting: adequately controlled Pain: adequately controlled Airway Patency, RR, SpO2: stable & adequate BP & HR: stable & adequate Hydration State: stable & adequate Anesthetic Complications: no major complications apparent and Pt Satisfied with anesthetic care
[2023-10-01] MEDS ORDERED: ePHEDrine sulfate 50 MG/5 ML SYR ONE (10:46)
[2023-10-01] MEDS ORDERED: PHENYLEPHRINE 100MCG/ML 10ML SYR IV ONE (10:46)
[2023-10-01] MEDS ORDERED: RACEPINEPHRINE 2.25% NEBU SOLN 0.5 ML VIAL INH PRN (11:15)
[2023-10-01] MEDS ORDERED: HYDROmorphone INJ 0.5 MG/0.5 ML SYR IV PRN (11:15)
[2023-10-01] MEDS ORDERED: DO NOT ADMINISTER FLU VACCINE PRN (11:15)
[2023-10-01] MEDS ORDERED: PROMETHAZINE HCL 12.5 MG in SODIUM CHLORIDE 0.9% 50 ML IV PRN (11:15)
[2023-10-01] MEDS ORDERED: bisacodyL 10 MG SUPP PR PRN (11:15)
[2023-10-01] MEDS ORDERED: traMADol HCL 50 MG TABLET PO PRN (11:15)
[2023-10-01] MEDS ORDERED: METOCLOPRAMIDE HCL INJ 5 MG/ML 2 ML VIAL IV PRN (11:15)
[2023-10-01] MEDS ORDERED: LORazepam 0.5 MG in SYRINGE 0.25 ML IV PRN (11:15)
[2023-10-01] MEDS ORDERED: diphenhydrAMINE Capsule 25 MG CAP PO PRN (11:15)
[2023-10-01] MEDS ORDERED: clonazePAM 0.25 MG TAB PO PRN (11:15)
[2023-10-01] MEDS ORDERED: NALOXONE HCL 0.4 MG/1 ML VIAL/CARP IV PRN (11:15)
[2023-10-01] MEDS ORDERED: hydrOXYzine HCl 25 MG TAB PO PRN (11:15)
[2023-10-01] MEDS ORDERED: PHARMACY GLYCEMIC MGMT CONSULT PRN (11:15)
[2023-10-01] MEDS ORDERED: HYDROmorphone INJ 1 MG/ML SYRINGE IV PRN (11:15)
[2023-10-01] MEDS ORDERED: ACETAMINOPHEN 500 MG TAB PO PRN (11:15)
[2023-10-01] MEDS ORDERED: DO NOT ADMINISTER PNEUMOCOCCAL VACCINE PRN (11:15)
[2023-10-01] MEDS ORDERED: ACETAMINOPHEN 1,000 MG/100 ML VIAL IV PRN (11:15)
[2023-10-01] MEDS ORDERED: MAGNESIUM HYDROXIDE SUSP 30 ML UDC PO PRN (11:15)
[2023-10-01] MEDS ORDERED: FAMOTIDINE 20 MG TAB PO PRN (11:15)
[2023-10-01] MEDS ORDERED: ALUMINUM/MAGNESIUM SUSP 30 ML UDC PO PRN (11:15)
[2023-10-01] MEDS ORDERED: HYDROCODONE/ACETAMOPHEN 5/325MG TAB PO PRN (11:15)
[2023-10-01] MEDS ORDERED: LORazepam 0.5 MG TAB PO PRN (11:15)
[2023-10-01] MEDS ORDERED: dexAMETHasone 8 MG in SYRINGE 0 ML IV PRN (11:15)
[2023-10-01] MEDS ORDERED: ONDANSETRON 4 MG OD TAB PO PRN (11:15)
[2023-10-01] MEDS ORDERED: SOD PHOSPHATE/SOD BIPHOSPHATE ENEMA 132 ML BTL PR PRN (11:15)
--- NOTE | 2023-10-01 11:36 | Hospitalist Consultation ---
Date of Consultation October 01, 2023 Assessment & Plan (1) Cervical stenosis of spinal canal: This is a 78 y/o with cervical stenosis, DM2, HTN, dyslipidemia, RBBB, SEAN, prior DVT in 2010, and other history as outlined below who underwent C3-C5 ACDF today by Dr. Isaac and for whom we have been consulted to assist with post- operative medical management. He is currently feeling well overall with only mild pain at present. He is tolerating oral intake without difficulty. He had a history of post-op UE DVT in 2010 that was treated with anticoagulation but has been off it and had subsequent surgeries without recurrence. - Pain control, activity, DVT prophylaxis per primary service - however, with his history of prior post-op DVT, would recommend ambulation/activity as soon as okay with primary team, add SCDs while in bed - Discussed importance of using incentive spirometry with patient - Labs in the AM - CBC, BMP - monitor for blood loss anemia and potential electrolyte abnormalities (2) Diabetes mellitus, type II: Appreciate glycemic pharmacy input A1c in the AM (3) HTN (hypertension): BP currently controlled Resume home meds and continue to monitor (4) HLD (hyperlipidemia): Chronic, stable (5) SEAN (generalized anxiety disorder): Chronic, stable Continue home meds (6) H/O deep venous thrombosis: See plan for #1 Plan Pt seen and reviewed with collaborating physician, Dr. Brizuela. Plan of care discussed and as outlined above. Thank you for this consultation. We will continue to follow this patient with you. A member of the [facility] Team is available 12/02 via [employer]. Please don't hesitate to reach out with questions. Mack Peres PA-C Supervising Physician Co-Signing Physician Notes I have seen and discussed the case with the collaborating advanced practitioner. I agree with the above H&P. I have reviewed and confirmed the patients medical history, the findings on physical examination, and the patients diagnosis and treatment plan with Ja PEREA and agree with the information documented. In short, this is a 78 y/o with cervical DM2, HTN, dyslipidemia, RBBB, SEAN, prior DVT in 2010, and other history as outlined below who underwent C3-C5 ACDF today by Dr. Isaac and for whom we have been consulted to assist with post- operative medical management. Patient tolerated procedure well. Denies any acute concerns. Reports remote history of UE DVT previously. GENERAL APPEARANCE: AxOx4, generally well-appearing male, no acute distress. HEENT: NC, AT. MMM. EOMI, clear conjunctiva, oropharynx clear. NECK: Supple without lymphadenopathy. No stiffness or restricted ROM. MERI drain from anterior point dressing CDI HEART: Normal rate and regular rhythm, normal S1/S1, no m/r/g LUNGS: CTAB, moving air well. No crackles or wheezes are heard. ABDOMEN: Soft, nontender, nondistended with good bowel sounds heard. BACK: No CVAT, no obvious deformity. EXTREMITIES: Without cyanosis, clubbing or edema. NEUROLOGICAL: Grossly nonfocal. Alert and oriented, moving all 4 extremities. CN not formally tested but appear grossly intact Skin: Warm and dry without any rash. #Cervical myelopathy s/p discectomy/bilateral foraminotomies POD 0 Dr isaac following, DVT ppx per primary Trend cbc for post-op monitoring Trend BMP monitor post op renal function PT/OT Rest of plan as above I spent a total of minutes coordinating, documenting, and providing care for this patient excluding time spent in the performance of separately billed services. All of the aforementioned completed outside of collaborating with the assigned advanced practitioner for a full treatment plan. I have reviewed the advanced practitioner's documentation, and I agree with, and take responsibility for the plan of care History of Present Illness Reason for Consultation: Post-operative medical management Requesting Physician: Dr. Donald Isaac Attending Physician: Donald Isaac, DO History of Present Illness This is a 78 y/o with cervical stenosis, DM2, HTN, dyslipidemia, RBBB, SEAN, prior DVT in 2010, and other history as outlined below who underwent C3-C5 ACDF today by Dr. Isaac and for whom we have been consulted to assist with post-operative medical management. He was seen by both his PCP and cardiology for pre-operative evaluation. Pre-op functional status was greater than 4 METs. Currently, pt is seen post-operatively and doing well. He is having some post- operative pain but overall controlled. He had radiation of symptoms in bilateral arms before surgery - still has some persistent numbness in his hands that is worse in his 3rd to 5th fingers though present in all fingers bilaterally. He has a mild sore throat but denies chest pain, palpitations, dyspnea, lightheadedness, nausea, or vomiting. Tolerating clear liquids for [facility]. He does not check his sugars regularly at home but reports his A1c testing has been good. Last A1c in [facility] was 6.8 on 03/29/23. Allergies Allergy/AdvReac Type Severity Reaction Status Date / Time chlorhexidine Allergy Severe rash/itchin Verified 10/01/23 05:31 g Penicillins AdvReac Intermediate oral pills Verified 10/01/23 05:31 mouth sore and mouth ulcers as a child oxycodone AdvReac Mild NAUSEA Verified 10/01/23 05:31 Home Medications Medication Instructions Recorded Confirmed Type clonazepam 0.5 mg tablet 0.25 mg PO DAILY PRN Anxiety 05/27/21 10/01/23 History coenzyme Q10 100 mg capsule 100 mg PO QAM 05/27/21 10/01/23 History (CoQ-10) cyanocobalamin (vitamin B-12) 500 500 mcg PO QAM 05/27/21 10/01/23 History mcg tablet (Vitamin B-12) ibuprofen 200 mg tablet (Advil) 200 mg PO Q6H PRN Pain 05/27/21 10/01/23 History lisinopril 20 1 tab PO QAM 05/27/21 10/01/23 History mg-hydrochlorothiazide 12.5 mg tablet metformin 500 mg tablet 500 mg PO BID 05/27/21 10/01/23 History pyridoxine (vitamin B6) 100 mg 100 mg PO QAM 05/27/21 10/01/23 History tablet (Vitamin B-6) venlafaxine 150 mg tablet,extended 150 mg PO HS 05/27/21 10/01/23 History release 24 hr lisinopril 20 0.5 tab PO HS 09/19/23 10/01/23 History mg-hydrochlorothiazide 12.5 mg tablet pregabalin 150 mg capsule 150 mg PO BID 09/19/23 10/01/23 History hydrocodone 5 mg-acetaminophen 325 1 tab PO Q6H PRN pain #20 tabs 10/01/23 Rx mg tablet tramadol 50 mg tablet 50 mg PO Q6H PRN pain, moderate 10/01/23 Rx #20 tabs Patient History Medical History (Updated 10/01/23 @ 13:03 by Maame Peres PA-C) DM type 2 (diabetes mellitus, type 2) Glucose stable History of skin cancer removed Anxiety and depression Cardiac murmur since childhood 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; last echo > 20 years ago no significant murmur noted at PAT appt 09/24/23 History of DVT (deep vein thrombosis) 2014 RUE - post op - treated with AC- treated with Lovenox injection x several months- no issues since - has since had lumbar surgery - no issues HTN (hypertension) HLD (hyperlipidemia) Surgical History History of cataract surgery Left cataract History of left knee surgery History of excision of pilonidal cyst x2 History of cervical spinal surgery ROM WNL History of esophagogastroduodenoscopy (EGD) History of colonoscopy H/O cervical spine surgery "2011: Cervical corpectomy C6 by Dr. Isaac " H/O Spinal surgery "2008: Lumbar decompression and fusion L4-L5 by Dr. Isaac. 2018: hardware removal L4-L5, decompression and fusion L2-S1 by Dr. Isaac" Family History Other No family history of adverse response to anesthesia Social History Smoking Status: Former smoker Tobacco Type: Cigarettes Smoking End Date: 55 years ago; Second Hand Exposure: No; Do You Dip or Chew Tobacco: No; Tobacco Cessation Education Requested by Patient: No Hx Alcohol Use: No Hx Substance Use: No Preferred Language: [place] Communication Ability: Effective Test Desk Operator Required: No Beliefs That Will Affect Care: None Current Living Situation: Spouse Other Information That Helps Us Care for You: No Feels Safe at Home: Yes Safety Concerns: Feels Safe At This Time Assistive Devices: Glasses Review of Systems Review of Systems: All systems reviewed & are unremarkable except as noted in HPI & below Constitutional: no fever, no chills and no sweats Eyes: no diplopia Ear, Nose, Mouth, Throat: + sore throat; no nasal congestion Respiratory: no cough and no dyspnea Cardiovascular: no chest pain, no palpitations and no syncope Gastrointestinal: no abdominal pain, no nausea and no vomiting Genitourinary: no dysuria or no hematuria Musculoskeletal: + neck pain Integumentary: no yellowing of the skin Neurologic: as per Subjective / HPI; no headache(s) and no confusion Physical Exam Physical Exam: General: awake, alert, NAD HEENT: no scleral icterus, moist oral mucosa Neck: hard cervical collar in place, drain with sanguinous drainage Heart: RRR Lungs: CTA bilaterally Abdomen: soft, NT, +BS Extremities: no pedal edema Neurologic: moving all extremities, diminished sensation to touch in bilateral hands - more diminished 5th finger compared to 2nd finger Skin: no jaundice Results & Data Results & Data Vital Signs (Past 12 Hours) Vital Signs Temp Pulse Pulse Resp BP Pulse Ox O2 Del Method 10/01/23 10:40 83 22 148/64 H 92 Room Air 10/01/23 10:30 85 20 136/79 94 Room Air 10/01/23 10:20 36.4 C L 78 16 135/72 94 Room Air 10/01/23 10:10 77 18 139/69 95 Room Air 10/01/23 10:00 83 16 133/76 98 Room Air 10/01/23 09:50 80 17 141/76 H 93 Room Air 10/01/23 09:40 36.1 C L 75 14 133/71 97 Room Air 10/01/23 05:59 36.7 C 82 20 156/79 H 97 Room Air Laboratory Results 10/01/23 10/01/23 10/01/23 05:32 09:43 11:24 POC Glucose 139 H 151 H 150 H Medications Administered Acetaminophen (Acetaminophen 500 Mg Tab) 1,000 mg PO PREOP DIONISIO Stop: 10/01/23 18:00 Last Admin: 10/01/23 05:39 Dose: 1,000 mg Documented By: DSW Celecoxib (Celebrex 200 Mg Cap) 200 mg PO PREOP DIONISIO Stop: 10/01/23 18:00 Last Admin: 10/01/23 05:39 Dose: 200 mg Documented By: DSW Gabapentin (Gabapentin 300 Mg Cap) 300 mg PO PREOP DIONISIO Stop: 10/01/23 18:00 Last Admin: 10/01/23 05:39 Dose: 300 mg Documented By: DSW Lactated Ringer's (Lr) 1,000 mls @ 60 mls/hr IV .[id number] DIONISIO Stop: 10/01/23 22:39 Last Admin: 10/01/23 05:40 Dose: Not Given Documented By: DSW Vancomycin HCl 1,500 mg/ (Sodium Chloride) 530 mls @ 200 mls/hr IV PREOP DIONISIO Stop: 10/01/23 18:00 Last Admin: 10/01/23 05:40 Dose: 200 mls/hr Documented By: SEBAS Lactated Ringer's (Lr) 1,000 mls @ 15 mls/hr IV .Q24H DIONISIO Stop: 10/02/23 05:59 Last Infusion: 10/01/23 07:46 Dose: Infused Documented By: Admin: 10/01/23 05:40 Dose: 15 mls/hr Documented By: SEBAS (2) Diabetes mellitus, type II Diabetes mellitus complication status: without complication Diabetes mellitus usp insulin use: without usp use Qualified Code(s): E11.9 - Type 2 diabetes mellitus without complications (3) HTN (hypertension) Hypertension type: primary hypertension Qualified Code(s): I10 - Essential (primary) hypertension (4) HLD (hyperlipidemia) Hyperlipidemia type: unspecified Qualified Code(s): E78.5 - Hyperlipidemia, unspecified
[2023-10-01] MEDS: INSULIN ASPART PER UNIT CHARGE SC SCH (12:03)
[2023-10-01] MEDS: dexAMETHasone 6 MG in SYRINGE 0 ML IV SCH (12:41)
--- NOTE | 2023-10-01 13:29 | Pharmacy Report ---
Pharmacy Glycemic Short Note 2 - Date of Service October 01, 2023 - Glycemic Short BSG Results (Last 24 hours): 10/01/23 10/01/23 10/01/23 05:32 09:43 11:24 POC Glucose 139 H 151 H 150 H OUTPATIENT ANTIDIABETIC REGIMEN: * metformin 500mg BID * HbA1c 7.0% (09/24/23) ASSESSMENT: * Buck is a 78 YOM admitted after spinal surgery with a history of T2DM. Pharmacy has been consulted to assist with glycemic management. * Preoperative BSG within goal range, will add a basal scale with dinner up to ~0.4 units/kg to cover ordered IV dexamethasone 6mg Q8H x3 doses. * Vancomycin received preop and clindamycin ordered post op. * Will initiate Novolog at a weight based stress of 2. PLAN FOR INPATIENT GLYCEMIC CONTROL: * Hold outpatient oral diabetes medications * Basal insulin * Lantus 0-40 units SQ with dinner (see eMAR for additional details) * Bolus insulin * NovoLog per scale ACHS or Q6hrs while NPO * Goal Range: Low 110 mg/dL - High 140 mg/dL * Correction Factor: 25 mg/dL/unit * Nutritional / Prandial insulin per carb ratio of 1 unit per 8 grams CHO consumed
[2023-10-01] MEDS: CLINDAMYCIN/D5W 600 MG/50 ML BAG IV SCH (15:49)
[2023-10-01] MEDS: SODIUM CHLORIDE 0.9% 1,000 ML IV SCH (16:24)
[2023-10-01] MEDS: LANTUS PER UNIT CHARGE SC SCH (17:06)
[2023-10-01] MEDS: ceFAZolin 330 MG/ML 1 GM VIAL ONE (19:38)
[2023-10-01] MEDS: DOCUSATE SODIUM/SENNA 50/8.6MG TAB PO SCH (19:55)
[2023-10-01] MEDS: VENLAFAXINE HCL XR 150 MG CAPXR PO SCH (19:56)
[2023-10-01] MEDS: LISINOPRIL/HCTZ 20/12.5MG 1 TAB TAB PO SCH (19:56)
[2023-10-01] MEDS: PREGABALIN 150 MG CAP PO SCH (20:54)
[2023-10-02] MEDS: POLYETHYLENE (MIRALAX) 17 GM PACK PO SCH (05:40)
[2023-10-02 06:36] LABS: Basophils # (auto) 0.01 K/uL (0.00-0.20); Basophils % (auto) 0.1 %; Hematocrit (blood only) 36.7 % (42.0-52.0); Hemoglobin 12.1 g/dl (14.0-18.0); Immature Granulocytes # (auto) 0.07 K/uL (0.01-0.20); Immature Granulocytes % (auto) 0.6 %; Lymphocytes # (auto) 0.95 K/uL (1.20-3.40); Lymphocytes % (auto) 8.6 %; Mean Corpuscular Hemoglobin 28.2 pg (25.0-34.0); Mean Corpuscular Volume 85.5 fL (80.0-100.0); Mean Platelet Volume 11.5 fL (9.4-12.4); Monocytes # (auto) 0.39 K/uL (0.11-0.59); Monocytes % (auto) 3.5 %; Neutrophils # (auto) 9.66 K/uL (1.40-6.50); Neutrophils % (auto) 87.2 %; Platelet Count 197 K/uL (130-400); RDW Coefficient of Variation 13.2 % (11.5-14.5); RDW Standard Deviation 40.5 fL (36.4-46.3); Red Blood Count 4.29 M/uL (4.70-6.10); White Blood Count 11.08 K/ul (4.8-10.8)
[2023-10-02 06:55] LABS: BUN Creatinine Ratio 23.5 (10-20); Calcium 8.9 mg/dl (8.6-10.3); Creatinine Clr Calc Pharmacy 104.8 ml/min; Est GFR (African American) 107.5 ml/min; Est GFR (Non-African American) 92.8 ml/min; Potassium 4.1 mmol/L (3.5-5.1)
[2023-10-02 07:03] LABS: Estimated Average Glucose 148 mg/dl; Hemoglobin A1C 6.8 % (4.5-5.6)
[2023-10-02] MEDS: LISINOPRIL/HCTZ 20/12.5MG 1 TAB TAB PO SCH (08:18)
[2023-10-02] MEDS: CYANOCOBALAMIN (B-12) 500 MCG TABLET PO SCH (08:19)
[2023-10-02] MEDS: PYRIDOXINE HCL 50 MG TAB PO SCH (08:19)
[2023-10-02] MEDS ORDERED: NON-FORMULARY MEDICATION (Coenzyme Q10 [Coq-10] 100 mg Capsule) PO SCH (09:00)
--- NOTE | 2023-10-02 12:54 | Discharge Summary ---
Date of Service October 02, 2023 Admission HPI Per Admitting Provider This is a 78-year-old male who presents with chronic persistent neck and arm pain after failing course of nonoperative care is here for surgical invention. Admission Exam (Per Admitting) Constitutional WD/WN, vitals as above Eyes PERRL, conjunctivae normal, anicteric sclerae ENMT external ear and nose normal, oropharynx normal Neck normal visual inspection Respiratory normal respiratory effort Cardiovascular Extremities: normal capillary refill Gastrointestinal (Abdomen) Inspection/Auscultation: abdomen normal to inspection Musculoskeletal Head/Neck/Chest: + limited ROM of neck Extremities: extremities normal to inspection Skin no rashes, warm and dry Neurologic normal touch/pain/proprioception Psychiatric A+Ox3, euthymic affect Eye Contact: good eye contact Discharge Data Consultations 10/01/23 11:15 Consult Hospitalist Routine Procedures Performed Operation Date: 10/01/23 07:45 Actual Procedures p C3-C5 Anterior Cervical Discectomy and Fusion, Spinal Cord Monitoring(Not Applicable) - Donald Isaac, DO Hospital Course (1) Cervical stenosis of spinal canal: Buck is postoperative day 1 status post ACDF C3-4, C4-5. He had an uneventful postoperative course. He is being discharged home on postoperative day 1. Upper and lower extremity symptoms greatly improved. Denies any dysphonia. Tolerating a soft diet. Up and ambulatory and voiding without issue Discharge Instructions ACTIVITY RECOMMENDATIONS: SELF CARE INSTRUCTIONS AFTER CERVICAL FUSIONS 1. No smoking. Smoking drastically decreases the chance of a solid fusion. 2. No bending, lifting more than 5 pounds, or twisting (roll like a log when turning in bed). 3. You may shower 3 days after surgery. Thoroughly dry wound. Do not soak in the tub. 4. Cervical collar: Must be worn at all times including sleeping. You may remove the brace only to bath, eat and if you are sitting in a recliner. 5. Please walk as much as you can for exercise. Gradually increase the distance that you walk as your endurance increases. SPECIAL CARE INSTRUCTIONS: VERY IMPORTANT TO READ AND REVIEW A. Do not take any anti-inflammatory medications (i.e. Indocin, Advil, Aspirin, Naprosyn, Aleve, Motrin, etc.) as these may inhibit the chance of a solid fusion. Tylenol is okay to take. B. Your surgical incision has been closed with a cosmetic suture under the skin that will dissolve in about 6 weeks. In 14 days, you can use a pair of clean scissors and cut the suture that is left outside of the skin at the ends of your incision. C. Complications are uncommon, but please contact us if you have any signs or symptoms of: 1. wound infection (fever higher than 102.5 degrees F, redness, separation of wound, drainage, or increasing pain from the incision) 2. blood clots in legs (pain, swelling, redness and warmth in legs) 3. urinary tract infection (fever higher than 102.5 degrees, burning upon urination or increased frequency of urination) 4. nerve problems (inability to walk on your toes or heels, numbness, loss of bowel or bladder control) 5. any other symptoms that concern you. D. Please call the office at if you have any concerns or questions about your operation or recovery. MANAGING PAIN AFTER SPINAL SURGERY 1. Narcotic medication is intended for short-term use and will be provided for surgical pain. Surgical pain usually lasts for a period of 4-6 weeks. Narcotic medication includes Percocet, Vicodin, Darvocet, Tylenol #3 or Lortab. 2. Longer-term pain is more appropriately treated with non-narcotic medication such as Tylenol ES. 3. Muscle spasm is not appropriately treated with narcotics. Muscle relaxers such as Soma, Flexeril or Skelaxin can be used along with Tylenol ES. 4. Remember that we all live with some "aches and pains". This is not unusual or uncommon after an injury or as we get older. 5. We will provide appropriate medication within the normal guidelines of their prescribed use. We will also be very cautious and aware of potential abuse and extended duration of patients' medication needs. 6. Please allow 2-3 days to process refills. Prescriptions will not be mailed but must be picked up at the office. FOLLOW UP VISIT: Keep your scheduled follow-up appointment. Any questions, please call the office at .
--- NOTE | 2023-10-02 13:03 | Hospitalist Progress Note ---
Date of Service October 02, 2023 Assessment & Plan (1) Cervical stenosis of spinal canal: Plan: This is a 78 y/o with cervical stenosis, DM2, HTN, dyslipidemia, RBBB, SEAN, prior DVT in 2010, and other history as outlined below who underwent C3-C5 ACDF 09/[address] Isaac and for whom we have been consulted to assist with post- operative medical management. He is currently feeling well overall with only mild pain at present with improvement in his radicular BUE symptoms. He is tolerating oral intake without difficulty. He had a history of post-op UE DVT in 2010 that was treated with anticoagulation but has been off it and had subsequent surgeries without recurrence. - Pain control, activity, DVT prophylaxis per primary service - however, with his history of prior post-op DVT, would recommend ambulation/activity as soon as okay with primary team, add SCDs while in bed - Discussed importance of using incentive spirometry with patient - Labs in the AM - CBC, BMP - monitor for blood loss anemia and potential electrolyte abnormalities (2) Diabetes mellitus, type II: Plan: Appreciate glycemic pharmacy input a1c stable /under control. (3) HTN (hypertension): Plan: c/w home meds and continue to monitor (4) HLD (hyperlipidemia): Plan: Chronic, stable (5) SEAN (generalized anxiety disorder): Plan: Chronic, stable Continue home meds (6) H/O deep venous thrombosis: Plan: See plan for #1 Admission and Anticipated Discharge Date Admission Date: October 01, 2023 Subjective Patient was seen and examined at bedside. Patient was sitting up in chair, on room air, resting comfortably. Patient reports operative site pain under control. Patient reports improvement in his BUE radicular symptoms. Patient denies any new complaints. Physical Exam Physical Exam: General: awake, alert, NAD HEENT: no scleral icterus, moist oral mucosa Neck: hard cervical collar in place, drain with minimal sanguinous drainage Heart: RRR Lungs: CTA bilaterally Abdomen: soft, NT, +BS Extremities: no pedal edema Neurologic: moving all extremities, vascular status wnl. Skin: no jaundice Results & Data Results & Data Vital Signs (Past 12 Hours) Vital Signs Temp Pulse Resp BP Pulse Ox O2 Del Method 10/02/23 11:19 95 H 16 95 Room Air 10/02/23 09:57 18 97 Room Air 10/02/23 07:42 87 16 95 Room Air 10/02/23 06:19 36.4 C L 88 16 159/60 H 96 Room Air 10/02/23 04:42 36.4 C L 84 18 157/84 H 95 Room Air 10/02/23 02:45 75 18 96 Room Air 10/02/23 02:06 36.4 C L 72 16 152/76 H 96 Room Air (2) Diabetes mellitus, type II Diabetes mellitus mcc insulin use: without mcc use Diabetes mellitus complication status: without complication Qualified Code(s): E11.9 - Type 2 diabetes mellitus without complications (3) HTN (hypertension) Hypertension type: primary hypertension Qualified Code(s): I10 - Essential (primary) hypertension (4) HLD (hyperlipidemia) Hyperlipidemia type: unspecified Qualified Code(s): E78.5 - Hyperlipidemia, unspecified
== END 2023-10-02 13:46 | disposition home or self-care (01) | DRG 473 ==
LOC: ASU 05:08 → 3E 09:35